=== PATIENT | male | born 1940 | race Caucasian/White ===

== ENCOUNTER 2018-12-19 11:20 | Emergency (ER) | payer MEDICARE, OTHER ==
[2018-12-19 11:48] VITALS: BP 130/93
--- NOTE | 2018-12-19 12:06 | EDM.PDOC ---
ED HPI GENERAL MEDICAL PROBLEM - General Chief Complaint: Cardiovascular Problem Stated Complaint: BOTH FEET ARE SWOLLEN Time Seen by Provider: 12/19/18 12:00 Source of Information: Reports: Patient History Limitations: Reports: No Limitations - History of Present Illness INITIAL COMMENTS - FREE TEXT/NARRATIVE: 78-year-old male presents to the ED mainly due to somewhat painful bilateral swollen lower extremities. He states over the last 2 months his legs have become increasingly swollen and remained so. They're not swollen up to the knees. He is wearing compression stockings as well. He does have some varicose veins but he's never had any varicose vein stripping procedures. Cigarettes but never very heavily. Denies cough sputum production. Denies orthopnea or any PND. Cough if he coughs is thick tenacious clear or white sputum. Has had previous left lung surgery for an empyema in 2001 . Diagnosed with prostate cancer in 2014 treated by cesium seed implants. This did not produce any diarrhea after placement. Last 2 weeks she's had prolific diarrhea 12-15 times per day particularly intestinal hurry if he eats. He states a lot of times it's not high-volume this is the fact that he has to go quickly to the bathroom. Patient denies being on any antibiotic some the last 6 weeks. He has had stools collected 4 separate stools and he brought him into the lab this morning for analysis ordered by Dr. Orozco. He does admit that he's been taking CBD oils to try and help with arthritic pain. States the diarrhea started shortly after starting the oils which is highly significant. He stopped them about 10 days ago. He did appreciate that he's had 6 stools this morning since awakening at 5: 00 with the last one being somewhat semi-formed or pasty which is the best it's been for a lengthy period of time. He has never noticed any blood in the stool. He still has his gallbladder in. Onset: Gradual Onset Date: 10/15/18 Duration: Week(s):, Constant, Getting Worse Location: Reports: Pelvis, Lower Extremity, Left, Lower Extremity, Right ( Bilateral lower extremity swelling for greater than 2 months.) Quality: Reports: Ache, Throbbing Severity: Moderate Improves with: Reports: Other (Elevating the legs helps somewhat.) Worsens with: Reports: Other (Dependent position makes them worse) Context: Denies: Activity, Exercise, Lifting, Sick Contact, Trauma, Other Associated Symptoms: Reports: Other (Chronic diarrhea with 12-15 bowel motions per day for the last 2 weeks or more.). 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) (He has Pepto-Bismol at home but hasn 't started it yet.) - Related Data Allergies Allergy/AdvReac Type Severity Reaction Status Date / Time No Known Allergies Allergy Verified 12/19/18 11:51 Home Meds: Home Meds Calcium Carbonate/Vitamin D3 [Calcium 600 + D Tablet] 1 tab PO DAILY 06/02/15 [ History] Cholecalciferol (Vitamin D3) [Vitamin D3] 800 mg PO BID 06/02/15 [History] Multivitamin [Multivitamins] 1 tab PO DAILY 06/02/15 [History] Tamsulosin [Flomax] 0.4 mg PO DAILY 10/30/15 [History] Antiox #11/OM3/DHA/EPA/Lut/Juan C [Eye Health Adult 50+ Softgel] 1 each PO DAILY [History] Aspirin [Ian Chewable] 81 mg PO DAILY 12/19/18 [History] Dicyclomine [Bentyl] 20 mg PO Q6H PRN #20 tablet 12/19/18 [Rx] Furosemide [Lasix] 40 mg PO DAILY #30 tablet 12/19/18 [Rx] Metoprolol Tartrate [Lopressor] 50 mg PO DAILY 12/19/18 [History] Potassium Chloride 20 meq PO DAILY #30 tablet.er 12/19/18 [Rx] Past Medical History Other Cardiovascular History: Tachycardia Gastrointestinal History: Reports: Chronic Diarrhea (Chronic diarrhea for over 2 weeks. 12-15 bowel movements per day usually low volume. No blood per rectum. Occasional lower abdominal cramping pain.) Genitourinary History: Reports: BPH, Prostate Disorder, Other (See Below) ( Diagnosed with prostate cancer in 2014 and he was treated with cesium seed implants.) Musculoskeletal History: Reports: Osteoarthritis (Knees hips back and neck.) - Past Surgical History Male Surgical History: Reports: Other (See Below) Social & Family History - Tobacco Use Smoking Status *Q: Former Smoker (20 pack year history.) Tobacco Use Within Last Twelve Months: Cigarettes - Living Situation & Occupation Living situation: Reports: Occupation: Retired ED ROS GENERAL - Review of Systems Review Of Systems: See Below Constitutional: Denies: Fever, Chills, Malaise, Weakness, Fatigue, Weight Loss HEENT: Reports: Glasses, Hearing Loss (Mild) Respiratory: Reports: Other (Previous history of empyema left lower lung field that had to be drained with 3 chest tubes in [place]. This happened in 2001). Denies: Shortness of Breath, Wheezing, Pleuritic Chest Pain, Cough Cardiovascular: Reports: Blood Pressure Problem, Edema, Other (No orthopnea or PND). Denies: Chest Pain, Claudication, Dyspnea on Exertion (Severe edema both lower extremities up to the knees bilaterally gradually worsening over the last 2 months or more.), Lightheadedness, Orthopnea (Mild hypertension) Endocrine: Reports: No Symptoms GI/Abdominal: Reports: Diarrhea (Chronic diarrhea usually small quantities stool loss without blood) : Reports: Frequency, Urgency, Other (Nocturia between 2 and 6 times nightly.) Musculoskeletal: Reports: Joint Pain (Knees hips back and neck and shoulders at times) Skin: Reports: No Symptoms Neurological: Reports: No Symptoms Psychiatric: Reports: No Symptoms Hematologic/Lymphatic: Reports: No Symptoms Immunologic: Reports: No Symptoms ED EXAM, GENERAL - Physical Exam Exam: See Below Exam Limited By: No Limitations General Appearance: Alert, WD/WN, No Apparent Distress, Other (Vital signs show respiratory rate of 18 pulse oximetry is 96% on room air he is afebrile.) Eye Exam: Bilateral Eye: Normal Inspection Throat/Mouth: Normal Inspection, Normal Lips, Normal Oropharynx Head: Atraumatic, Normocephalic Neck: Normal Inspection, Supple, Non-Tender, Full Range of Motion, Other. No: Carotid Bruit, Lymphadenopathy (L), Lymphadenopathy (R) Respiratory/Chest: No Respiratory Distress (No JVD), Lungs Clear, Normal Breath Sounds, No Accessory Muscle Use, Other (Has evidence of 3 previous thoracotomy drainage tubes in his left anterior lateral chest wall.) Cardiovascular: Regular Rate, Rhythm, No Gallop, No Murmur, No Rub, Other (4+ pitting edema both lower extremities). No: Normal Peripheral Pulses, No Edema Peripheral Pulses: 0: Posterior Tibial (L), Posterior Tibial (R), Dorsalis Pedis (L), Dorsalis Pedis (R) GI/Abdominal: Soft, Non-Tender, No Organomegaly, Pelvis Stable, Abnormal Bowel Sounds (Male) Exam: Other (Denies any swelling of his scrotum or penis) Back Exam: Normal Inspection, Full Range of Motion. No: CVA Tenderness (L), CVA Tenderness (R) Extremities: Pedal Edema (3-4+ pitting edema both lower extremity is up to the knees little worse on the left side as compared to the right.), Other Neurological: Alert (He is wearing compression stockings as well.), Oriented, CN II-XII Intact, Normal Cognition Psychiatric: Normal Affect, Normal Mood Skin Exam: Warm, Dry, Intact, Normal Color Course - Vital Signs Last Recorded V/S: Last Vital Signs Temp 36.9 C 12/19/18 11:42 Pulse 78 12/19/18 11:42 Resp 18 12/19/18 11:42 BP 130/93 H 12/19/18 11:42 Pulse Ox 96 12/19/18 11:42 - Orders/Labs/Meds Orders: Active Orders 24 hr Category Date Time Status H.PYLORI ANTIGEN, STOOL [OP] Stat Lab 12/19/18 15:17 Ordered Labs: Laboratory Tests 12/19/18 12/19/18 12/19/18 Range/Units 12:23 12:47 12:47 WBC 6.11 (4.23-9.07) K/mm3 RBC 3.49 L (4.63-6.08) M/mm3 Hgb 12.3 L (13.7-17.5) gm/L Hct 38.4 L (40.1-51.0) % MCV 110.0 H (79.0-92.2) fl MCH 35.2 H (25.7-32.2) pg MCHC 32.0 L (32.2-35.5) g/dl RDW Std Deviation 54.2 H (35.1-43.9) fL Plt Count 125 L (163-337) K/mm3 MPV 9.8 (9.4-12.3) fl Neutrophils % (Manual) 76 H (40-60) % Band Neutrophils % 0 (0-10) % Lymphocytes % (Manual) 14 L (20-40) % Atypical Lymphs % 0 % Monocytes % (Manual) 9 (2-10) % Eosinophils % (Manual) 1 (0.8-7.0) % Basophils % (Manual) 0 L (0.2-1.2) Platelet Estimate Decreased Poikilocytosis 1+ slight Anisocytosis 1+ slight Macrocytosis 2+ moderate Tear Drop Cells 1+ slight RBC Morph Comment Abnormal ESR (0-15) mm/hr Sodium 142 (136-145) mEq/L Potassium 3.6 (3.5-5.1) mEq/L Chloride 104 (98-107) mEq/L Carbon Dioxide 29 (21-32) mEq/L Anion Gap 12.6 (5-15) BUN 9 (7-18) mg/dL Creatinine 1.0 (0.7-1.3) mg/dL Est Cr Clr Drug Dosing 63.80 mL/min Estimated GFR (MDRD) > 60 (>60) mL/min BUN/Creatinine Ratio 9.0 L (14-18) Glucose 104 (83-115) mg/dL Calcium 8.9 (8.5-10.1) mg/dL Magnesium 1.7 L (1.8-2.4) mg/dl Total Bilirubin 1.8 H (0.2-1.0) mg/dL AST 67 H (15-37) U/L ALT 44 (16-63) U/L Alkaline Phosphatase 108 (46-116) U/L NT-Pro-B Natriuret Pep (0-450) pg/mL Total Protein 7.1 (6.4-8.2) g/dl Albumin 3.0 L (3.4-5.0) g/dl Globulin 4.1 gm/dL Albumin/Globulin Ratio 0.7 L (1-2) Urine Color Yellow (Yellow) Urine Appearance Clear (Clear) Urine pH 7.0 (5.0-8.0) Ur Specific [place] 1.020 (1.005-1.030) Urine Protein 1+ H (Negative) Urine Glucose (UA) Negative (Negative) Urine Ketones Negative (Negative) Urine Occult Blood Negative (Negative) Urine Nitrite Positive H (Negative) Urine Bilirubin 1+ H (Negative) Urine Urobilinogen 2.0 H (0.2-1.0) Ur Leukocyte Esterase Negative (Negative) Urine RBC Not seen (0-5) /hpf Urine WBC 0-5 (0-5) /hpf Ur Epithelial Cells 0-5 (0-5) /hpf Urine Bacteria Moderate H (FEW) /hpf Urine Mucus Moderate H (FEW) /hpf 12/19/18 12/19/18 Range/Units 12:47 12:47 WBC (4.23-9.07) K/mm3 RBC (4.63-6.08) M/mm3 Hgb (13.7-17.5) gm/L Hct (40.1-51.0) % MCV (79.0-92.2) fl MCH (25.7-32.2) pg MCHC (32.2-35.5) g/dl RDW Std Deviation (35.1-43.9) fL Plt Count (163-337) K/mm3 MPV (9.4-12.3) fl Neutrophils % (Manual) (40-60) % Band Neutrophils % (0-10) % Lymphocytes % (Manual) (20-40) % Atypical Lymphs % % Monocytes % (Manual) (2-10) % Eosinophils % (Manual) (0.8-7.0) % Basophils % (Manual) (0.2-1.2) Platelet Estimate Poikilocytosis Anisocytosis Macrocytosis Tear Drop Cells RBC Morph Comment ESR 23 H (0-15) mm/hr Sodium (136-145) mEq/L Potassium (3.5-5.1) mEq/L Chloride (98-107) mEq/L Carbon Dioxide (21-32) mEq/L Anion Gap (5-15) BUN (7-18) mg/dL Creatinine (0.7-1.3) mg/dL Est Cr Clr Drug Dosing mL/min Estimated GFR (MDRD) (>60) mL/min BUN/Creatinine Ratio (14-18) Glucose (83-115) mg/dL Calcium (8.5-10.1) mg/dL Magnesium (1.8-2.4) mg/dl Total Bilirubin (0.2-1.0) mg/dL AST (15-37) U/L ALT (16-63) U/L Alkaline Phosphatase (46-116) U/L NT-Pro-B Natriuret Pep 260 (0-450) pg/mL Total Protein (6.4-8.2) g/dl Albumin (3.4-5.0) g/dl Globulin gm/dL Albumin/Globulin Ratio (1-2) Urine Color (Yellow) Urine Appearance (Clear) Urine pH (5.0-8.0) Ur Specific [place] (1.005-1.030) Urine Protein (Negative) Urine Glucose (UA) (Negative) Urine Ketones (Negative) Urine Occult Blood (Negative) Urine Nitrite (Negative) Urine Bilirubin (Negative) Urine Urobilinogen (0.2-1.0) Ur Leukocyte Esterase (Negative) Urine RBC (0-5) /hpf Urine WBC (0-5) /hpf Ur Epithelial Cells (0-5) /hpf Urine Bacteria (FEW) /hpf Urine Mucus (FEW) /hpf - Radiology Interpretation Free Text/Narrative:: 78-year-old male attends the ED with chief complaint of increasing gross edema in his lower extremities bilaterally. Probably been going on for over 2 months. This is complicated by the fact that he said quite severe diarrhea with anywhere between 12 and 15 bowel moves a day for the last 3 weeks. This seemed to start after he started CBD or oils an attempt to help reduce inflammation. He essentially stopped these about [address] Orozco and stools 4 have been collected for culture and sensitivity and I believe open parasites which were trended to the lab this morning. He states for the first time today the stool started to look a little pasty or semi-formed. No blood has been passed per rectum. He had cesium implants for prostate cancer placed in 2014 and it's unlikely to be related to radiation-induced proctitis. He appreciates intestinal hurry if he eats he is usually on the toilet within 10 minutes. Therefore the question is whether or not he has protein is very low by hypoalbuminemia contributing to his dependent edema. Lab work will be performed to make sure that he is not in heart failure, liver failure, renal failure or simply has significant venous insufficiency. - Re-Assessments/Exams Free Text/Narrative Re-Assessment/Exam: 12/19/18 13:45 Part of the labs are back. Total white count is 6.11. Differential is pending. Hemoglobin is 12.3 with hematocrit of 38.4. MCV is elevated at 110.0. Sodium is 142. Potassium is 3.6. Chloride 104 the bicarbonate 29. Anion gap is 12.6. BUN is 9 with a creatinine of 1.0. GFR is greater than 60. Glucose 104 with a calcium of 8.9 magnesium is slightly low at 1.7 total bilirubin is elevated at 1.8. AST is 67 ALT is 44. Alk phosphatase is normal at 108. BNP minimally elevated at 260. Total protein is 7.1 with an albumin fraction of 3.0. The urinalysis shows 1+ proteinuria is positive for nitrates 1+ bilirubin and 2+ urobilinogen. Moderate bacteria .No pus cells 12/19/18 15:21 her history suggests that is had chronic dependent edema. Probably 3 months which is getting worse. May be worsened because of his low albumin fraction secondary to diarrhea. Return in H. pylori on his stool as it needs to be ruled out as well as a potential cause of his diarrhea. I phoned to the lab it but now the stools have been evaluated yet to see if there is any pus cells. White cells of been ordered on the stool and he never produced any stool while here. He will be placed on Lasix 40 mg once every morning to help reduce his fluid retention in his lower extremities. He is to step on the scale every day and weight on his weights. Placed on Slow-K 20 mg once daily because his potassium is 3.6. This will have to be kept an eye on as it may come up as his diarrhea abates. Placed him on Bentyl 20 mg first thing in the morning and before bed to try and help alleviate some of his diarrhea. I suspect since he stopped the CBD oils his diarrhea will likely improve at any rate. I will get him started on fluoroscopy*twice daily probiotics. He has plans to follow-up with Dr. Boggs next week when he starts at the hospital here. Departure - Departure Time of Disposition: 14:16 Disposition: Home, Self-Care 01 Condition: Fair Clinical Impression: Dependent edema, Venous insufficiency of both lower extremities, Chronic diarrhea Prescriptions: Dicyclomine [Bentyl] 20 mg PO Q6H PRN #20 tablet PRN Reason: Abdominal cramps/diarrhea Furosemide [Lasix] 40 mg PO DAILY #30 tablet Potassium Chloride 20 meq PO DAILY #30 tablet.er Instructions: Chronic Diarrhea, Edema, [id number] Referrals: Bobby Esquivel MD [Primary Care Provider] - Forms: ED Department Discharge Additional Instructions: Evaluation the emergency room today in regards to chronic swelling of both lower extremities which we called venous insufficiency. Lab tests revealed no signs of significant congestive heart failure. No signs of liver failure and the kidneys are working well as well. Your serum protein is a little low at 3.0 which helps hold fluid within the blood vessels and its low because of the chronic diarrhea that you've been experiencing. My suggestion is to take water pill Lasix 40 mg once every morning at least for the next 10-14 days and if the swelling goes down dramatically we may be a little cut the tablet in half and take a half a tablet daily. Continue to wear compression stockings on during the day and off at night. 6 secondly you do need to get to the bottom of your diarrhea. Hopefully stopping the CBD oils will help form of the stools in the near future. I suggest starting probiotic twice daily such as Florastar which can be purchased at her skilled pharmacy. I would use these until your stools are formed back up to normal. May use Bentyl 20 mg first thing in the morning and one before bed until stools are formed back up to normal. Need to take a potassium supplement called Slow-K one tablet once daily every morning as the water pill makes the kidneys waste potassium and her potassium is already low- normal at 3.6. Normal is about 3.5. You might be low as well because of the chronic diarrhea. Dr. Medley in the next 10-12 days time. - My Orders Last 24 Hours: My Active Orders 12/19/18 15:17 H.PYLORI ANTIGEN, STOOL [OP] Stat - Assessment/Plan Last 24 Hours: My Active Orders 12/19/18 15:17 H.PYLORI ANTIGEN, STOOL [OP] Stat
== END 2018-12-19 14:43 | disposition home or self-care (01) ==
LOC: JD.ED 11:20
DX: I87.2 Venous insufficiency (chronic) (peripheral) (principal); K52.9 Noninfective gastroenteritis and colitis, unspecified; B96.81 Helicobacter pylori [H. pylori] as the cause of diseases classified elsewhere; M19.90 Unspecified osteoarthritis, unspecified site; Z87.891 Personal history of nicotine dependence; Z79.899 Other long term (current) drug therapy; Z79.82 Long term (current) use of aspirin
CPT/HCPCS: 36415; 80053; 81001; 83735; 83880; 85007; 85027; 85652; 87338; 99284

== ENCOUNTER 2019-03-13 05:59 | Inpatient (IN) | payer MEDICARE, OTHER ==
[~2019-03-13 05:59] MED LIST: Lactated Ringers 1,000 ML IV SCH; Lidocaine 1%/Sod Bicarbonate in NS 8.4% 1 ML Syringe IDERM PRN; Sodium Chloride 0.9% 10 ML Syringe FLUSH PRN
[2019-03-13] MEDS ORDERED: Midazolam 1 MG/ML 2 ML SDV ONE ×6 (06:48→08:39)
[2019-03-13] MEDS ORDERED: fentaNYL 100 MCG/2 ML SDV ONE (06:48)
[2019-03-13] MEDS ORDERED: Propofol 200 MG/20 ML SDV ONE (06:48)
[2019-03-13] MEDS ORDERED: ceFAZolin 1 GM Vial ONE ×2 (06:51)
--- NOTE | 2019-03-13 07:03 | PCM.PREANE ---
Preanesthetic Assessment - Anesthesia/Transfusion/Family Hx Anesthesia History: Prior Anesthesia Without Reaction Family History of Anesthesia Reaction: No Transfusion History: No Prior Transfusion(s) Intubation History: Unknown - Review of Systems General: No Symptoms Pulmonary: No Symptoms, Shortness of Breath Cardiovascular: No Symptoms Gastrointestinal: No Symptoms Neurological: Syncope - Physical Assessment NPO Status Date: 03/13/19 NPO Status Time: 18:30 O2 Sat by Pulse Oximetry: 95 Respiratory Rate: 16 Vital Signs: Last Vital Signs Temp 36.6 C 03/13/19 06:05 Pulse 64 03/13/19 06:05 Resp 16 03/13/19 06:05 BP 117/74 03/13/19 06:05 Pulse Ox 95 03/13/19 06:05 Height: 1.78 m Weight: 103.419 kg ASA Class: 3 Mental Status: Alert & Oriented x3 Airway Class: Mallampati = 3 Dentition: Reports: Dentures ROM/Head Extension: Limited/Partial Lungs: Clear to Auscultation, Normal Respiratory Effort Cardiovascular: Regular Rate, Regular Rhythm - Lab Values: Laboratory Last Values MRSA (PCR) Negative 02/26/19 15:30 - Allergies Allergies/Adverse Reactions: Allergies Allergy/AdvReac Type Severity Reaction Status Date / Time pravastatin Allergy Joint Pain Verified 03/12/19 15:16 ropinirole [From Requip] Allergy Joint Pain Verified 03/12/19 15:16 - Anesthesia Plan Beta Yessica: Metoprolol - Acknowledgements Anesthesia Type Planned: Spinal Pt an Appropriate Candidate for the Planned Anesthesia: Yes Alternatives and Risks of Anesthesia Discussed w Pt/Guardian: Yes Pt/Guardian Understands and Agrees with Anesthesia Plan: Yes PreAnesthesia Questionnaire HEENT History: Reports: Impaired Vision Cardiovascular History: Reports: Aneurysm, CAD, Heart Failure Other Cardiovascular History: Tachycardia Respiratory History: Reports: COPD, SOB Gastrointestinal History: Reports: Chronic Diarrhea, Colon Polyp, GERD, Other ( See Below) Other Gastrointestinal History: abnormal liver function, anorexia, constipation , abdominal pain Genitourinary History: Reports: BPH, Prostate Disorder CODING ASSISTANT History: Reports: None Musculoskeletal History: Reports: Arthritis, Osteoarthritis Other Musculoskeletal History: muscle cramps, knee pain Neurological History: Reports: Headaches, Chronic Psychiatric History: Reports: Addiction, Anxiety Endocrine/Metabolic History: Reports: None Hematologic History: Reports: Folic Acid Immunologic History: Reports: None Oncologic (Cancer) History: Reports: Prostate Dermatologic History: Reports: Other (See Below) Other Dermatologic History: losing pigment in hands and lower arms - Past Surgical History Head Surgeries/Procedures: Reports: None HEENT Surgical History: Reports: Cataract Surgery Cardiovascular Surgical History: Reports: Cardiac Ablation Respiratory Surgical History: Reports: Other (See Below) Other Respiratory Surgeries/Procedures: emphyema GI Surgical History: Reports: Colonoscopy Female Surgical History: Reports: None Male Surgical History: Reports: Other (See Below) Other Male Surgeries/Procedures: prostate seeds Endocrine Surgical History: Reports: None Neurological Surgical History: Reports: None Musculoskeletal Surgical History: Reports: Hip Replacement, Joint Replacement, Other (See Below) Other Musculoskeletal Surgeries/Procedures:: L hip Oncologic Surgical History: Reports: None - SUBSTANCE USE Smoking Status *Q: Former Smoker Days Per Week of Alcohol Use: 7 Number of Drinks Per Day: 3 Total Drinks Per Week: 21 Date of Last Drink: 03/09/19 Recreational Drug Use History: No - HOME MEDS Home Medications: Home Meds Calcium Carbonate/Vitamin D3 [Calcium 600 + D Tablet] 1 tab PO BID 06/02/15 [ History] Multivitamin [Multivitamins] 1 tab PO DAILY 06/02/15 [History] Tamsulosin [Flomax] 0.4 mg PO BID 10/30/15 [History] Antiox #11/OM3/DHA/EPA/Lut/Juan C [Eye Health Adult 50+ Softgel] 1 each PO DAILY [History] Aspirin [Ian Chewable] 81 mg PO DAILY 12/19/18 [History] Furosemide [Lasix] 40 mg PO DAILY #30 tablet 12/19/18 [Rx] Dicyclomine [Bentyl] 20 mg PO Q48H PRN 03/12/19 [History] Folic Acid 1 mg PO DAILY 03/12/19 [History] Metoprolol Succinate 25 mg PO DAILY 03/12/19 [History] - CURRENT (IN HOUSE) MEDS Current Meds: Current Medications Lactated Ringer's (Ringers, Lactated) 1,000 mls @ 125 mls/hr IV ASDIRECTED [facility] Last Admin: 03/13/19 06:46 Dose: 125 mls/hr Lidocaine/Sodium Bicarbonate (Buffered Lidocaine 1% In Ns 8.4%) 0.25 ml IDERM ONETIME PRN PRN Reason: Prior to IV Start Last Admin: 03/13/19 06:45 Dose: 0.25 ml Sodium Chloride (Saline Flush) 10 ml FLUSH ASDIRECTED PRN PRN Reason: Keep Vein Open Discontinued Medications Bupivacaine HCl (Marcaine 0.25%) Confirm Administered Dose 30 ml .ROUTE .STK- MED ONE Stop: 03/13/19 06:36 Cefazolin Sodium (Ancef) Confirm Administered Dose 2 gm .ROUTE .STK-MED ONE Stop: 03/13/19 06:36 Cefazolin Sodium (Ancef) Confirm Administered Dose 1 gm .ROUTE .STK-MED ONE Stop: 03/13/19 06:52 Cefazolin Sodium (Ancef) Confirm Administered Dose 1 gm .ROUTE .STK-MED ONE Stop: 03/13/19 06:52 Fentanyl (Sublimaze) Confirm Administered Dose 100 mcg .ROUTE .STK-MED ONE Stop: 03/13/19 06:49 Iodine (Iodine 2% Mild Tincture) Confirm Administered Dose 30 ml .ROUTE .STK- MED ONE Stop: 03/13/19 06:36 Midazolam HCl (Versed 1 Mg/Ml) Confirm Administered Dose 2 mg .ROUTE .STK-MED ONE Stop: 03/13/19 06:49 Propofol (Diprivan 20 Ml) Confirm Administered Dose 200 mg .ROUTE .STK-MED ONE Stop: 03/13/19 06:49 Tranexamic Acid (Cyklokapron) Confirm Administered Dose 1,000 mg .ROUTE .STK- MED ONE Stop: 03/13/19 06:36 Vancomycin HCl (Vancomycin) Confirm Administered Dose 1 gm .ROUTE .STK-MED ONE Stop: 03/13/19 06:36
[2019-03-13] MEDS ORDERED: Ondansetron 4 MG/2 ML SDV IVPUSH PRN (07:16)
[2019-03-13] MEDS ORDERED: Naloxone 0.4 MG/ML SDV IVPUSH PRN (07:16)
[2019-03-13] MEDS ORDERED: Sennosides 8.6 MG Tab PO PRN (07:16)
[2019-03-13] MEDS ORDERED: Morphine 2 MG/ML Syringe IVPUSH PRN (07:16)
[2019-03-13] MEDS ORDERED: Bisacodyl 5 MG Tab PO PRN (07:16)
[2019-03-13] MEDS ORDERED: Bupivacaine 0.75% 30 ML SDV ONE (07:18)
[2019-03-13] MEDS ORDERED: Ropivacaine 0.5% 5 MG/ML 30 ML SDV ONE (07:45)
[2019-03-13] MEDS ORDERED: EPINEPHrine 1 MG/ML SDV ONE (07:45)
[2019-03-13] MEDS ORDERED: Lactated Ringers 1,000 ML ONE (07:53)
[2019-03-13] MEDS: Iodine/Sodium Iodide 2% Tincture 30 ML Bottle ONE ×2 (08:08→08:26)
[2019-03-13] MEDS: ceFAZolin 1 GM Vial ONE ×2 (08:08→08:28)
[2019-03-13] MEDS: Bupivacaine 0.25% 30 ML SDV ONE ×2 (08:09→08:30)
[2019-03-13] MEDS: Morphine 8 MG, EPINEPHrine 0.3 MG, Cefuroxime 750 MG, Sodium Chloride 0.9% 27.9 ML ONE ×8 (08:09→08:30)
[2019-03-13] MEDS: Vancomycin 1 GM SDV ONE ×2 (08:10→08:35)
--- NOTE | 2019-03-13 09:20 | PCM.POSTAN ---
POST ANESTHESIA ASSESSMENT - MENTAL STATUS Mental Status: Alert - RESPIRATORY Respiratory Status: Respiratory Rate WNL, Airway Patent, O2 Saturation Stable, Supplemental Oxygen - CARDIOVASCULAR CV Status: Pulse Rate WNL, Blood Pressure Stable - GASTROINTESTINAL GI Status: No Symptoms - POST OP HYDRATION Hydration Status: Adequate & Stable
--- NOTE | 2019-03-13 09:45 | PCM.OPNOTE ---
- General Post-Op/Procedure Note Date of Surgery/Procedure: 03/13/19 Operative Procedure(s): right total knee arthroplasty Pre Op Diagnosis: right knee osteoarthrosis Post-Op Diagnosis: Same Anesthesia Technique: Local, MAC, Spinal Primary Surgeon: Chance Guerrero Anesthesia Provider: Tera Preciado Military Administrative Technician: Shahida Mcnulty Military Administrative Technician: Dary Wayne in mLs: 5 Complications: None Condition: Good Free Text/Narrative:: size 7 femur size 6 tibia 9mm 35x10
--- NOTE | 2019-03-13 09:59 | CR ---
Right knee: AP and lateral views of the right knee were obtained. Comparison: No prior knee exam. Knee prosthesis is seen. Components are aligned. Soft tissue air is noted from the surgical procedure. Vascular calcification is seen. No acute fracture or other abnormality is seen. Impression: 1. Satisfactory radiographic appearance of recently placed right knee prosthesis. Diagnostic code #2
--- NOTE | 2019-03-13 10:02 | PCM.SN ---
- Free Text/Narrative Note: Right selective femoral nerve block at the adductor canal for post-procedure pain control under US guidance requested by Dr. Guerrero. Time Out: 942 Start: 942 End: 950 Chart reviewed. Consent signed. Questions answered. Appropriate monitors applied. Time out performed. Right mid-shaft femur identified with ultrasound, scanning medially of femur, the femoral artery in the adductor canal visualized , and the femoral nerve located laterally to the artery. The skin was prepped lateral to the ultrasound probe with chlorahexadine times two. The 21ga 4 insulated block needle was inserted under direct ultrasound guidance into the adductor canal. 21mL of 0.5% ropivacaine with 1:200,000 epinephrine was injected circumferentially around the nerve with intermittent negative aspiration noted. Patient tolerated the procedure well. Sterile technique noted along with sterile gloves, mask, and sterile probe cover. See picture on progress note and vital signs on nurses notes. Block completed in PACU. Raisa Olmedo CRNA
--- NOTE | 2019-03-13 10:09 | OR ---
DATE OF OPERATION: 03/13/2019 SURGEON: Chance Guerrero MD OPERATION PERFORMED: Right total knee arthroplasty. PREOPERATIVE DIAGNOSIS: Right knee osteoarthrosis. POSTOPERATIVE DIAGNOSIS: Right knee osteoarthrosis. ANESTHESIA: Local MAC with spinal. ANESTHESIA PROVIDER: Tera Preciado CRNA. ASSISTANTS: Shahida Mcnulty PA-C and Dary Wayne LPN. ESTIMATED BLOOD LOSS: 5 mL. COMPLICATIONS: None. CONDITION: Stable. IMPLANTS: 1. [place] size 7 PS cemented femur. 2. [place] size 6 cemented [place] tibial baseplate. 3. [place] size 6, 9 mm PS X3 polyethylene. 4. [place] size 35 x 10 mm cemented asymmetric patella. DESCRIPTION OF PROCEDURE: The patient was identified in the preop holding area. Proper site was marked and identified by the surgeon. The patient was taken back to the operating theater. After adequate anesthesia, the patient's right lower extremity had a nonsterile tourniquet applied and it was sterilely prepped and draped in the usual sterile fashion. OR time-out was performed. The patient received 2 g IV Ancef. At this time, the right lower extremity was exsanguinated. Tourniquet was insufflated to 300 mmHg. Standard medial parapatellar incision was made. Medial parapatellar arthrotomy was created. Deep fibers of the MCL were raised and anterior fat pad was resected. At this time, attention was turned to the patella. Patella measured 24, it was resected to a 14 for 35 x 10 mm patella. Drill holes were then drilled and found to be in adequate position. The drill was then drilled in the distal femur and the intramedullary distal femoral cutting guide was then placed. 8 mm was resected off the distal femur and was found to be an adequate resection. Sizing guide was placed. It was found to be a size 7 PS cemented femur that was shown on the implant record at the beginning of this dictation. The drill holes were drilled for the epicondylar axis using [place] line and epicondyles as reference. At this time, the 4-in-1 cutting block was placed. An anterior posterior and anterior and posterior chamfer cuts were then completed. Boxcut was then completed at this time. Attention was turned to the tibia. The posterior medial lateral retractors were placed. The extramedullary tibial guide was placed. It was placed in the old footprint of the ACL. It was aligned with the center of the ankle and 0 degrees of slope, 9 mm was then resected off the unaffected side. There was found to be an acceptable reduction. At this time, posterior osteophytes were removed along with medial and lateral meniscus. A trial implant was placed with a correct sized tibia that was mentioned at the beginning of the dictation. A [place] size 6, 9 mm PS X3 polyethylene insert was then placed. The patient's knee was brought through range of motion. The patella was tracking centrally and was stable to varus and valgus stress. Alignment was found to be roughly at 0 degrees. The tibia was stamped and drilled in proper rotation. Cement was mixed. The universal tibial base plate was impacted in place. Next, the [place] size 7 PS cemented femur impacted into place and the [place] size 6, 9 mm PS X3 polyethylene insert was placed. The patient's knee was brought into full extension. The patella was then cemented in place at this time. One liter dilute Betadine solution was irrigated through the knee along with 3 L of pulse lavage irrigation with Ancef. Periarticular injection was then completed. The patient's knee was brought through a range of motion. Once the cement had time to set up and it was found to be stable to varus valgus stress, the patella was tracking centrally with full range of motion. At this time, a #2 barbed suture was used for closure of the medial parapatellar arthrotomy. Topical tranexamic acid was placed. 2-0 Vicryl was used subcutaneously, Prineo was used for the skin. The patient tolerated the procedure well and was sent to the PACU in stable condition. MMMILANA /[id number] SUZANNE
[2019-03-13] MEDS ORDERED: diphenhydrAMINE 25 MG Cap PO ONE (12:03)
[2019-03-13] MEDS: Docusate Sodium 100 MG Cap PO SCH ×2 (12:19→20:15)
[2019-03-13] MEDS: Acetaminophen/oxyCODONE 325-5 MG Tab PO PRN ×2 (12:23→16:42)
[2019-03-13] MEDS: Cyclobenzaprine 10 MG Tab PO PRN (13:24)
--- NOTE | 2019-03-13 13:49 | PCM.CONS ---
H&P History of Present Illness - General Date of Service: 03/13/19 Admit Problem/Dx: Admission Diagnosis/Problem Admission Diagnosis/Problem Osteoarthritis of knee - History of Present Illness Initial Comments - Free Text/Narative: 78-year-old male postop day 0 for right total knee arthroplasty. 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 Patient did well post op and is resting comfortably in bed without any complaints. 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 Patient rarely goes without drinking daily. His last drink was 2 days ago because he wanted to cut back before his surgery and he only had 1 ounce of mckenna. - Related Data Allergies/Adverse Reactions: Allergies Allergy/AdvReac Type Severity Reaction Status Date / Time pravastatin Allergy Joint Pain Verified 03/12/19 15:16 ropinirole [From Requip] Allergy Joint Pain Verified 03/12/19 15:16 Home Medications: Home Meds Calcium Carbonate/Vitamin D3 [Calcium 600 + D Tablet] 1 tab PO BID 06/02/15 [ History] Multivitamin [Multivitamins] 1 tab PO DAILY 06/02/15 [History] Tamsulosin [Flomax] 0.4 mg PO BID 10/30/15 [History] Antiox #11/OM3/DHA/EPA/Lut/Juan C [Eye Health Adult 50+ Softgel] 1 each PO DAILY [History] Aspirin [Ian Chewable] 81 mg PO DAILY 12/19/18 [History] Furosemide [Lasix] 40 mg PO DAILY #30 tablet 12/19/18 [Rx] Dicyclomine [Bentyl] 20 mg PO Q48H PRN 03/12/19 [History] Folic Acid 1 mg PO DAILY 03/12/19 [History] Metoprolol Succinate 25 mg PO DAILY 03/12/19 [History] Past Medical History HEENT History: Reports: Impaired Vision Cardiovascular History: Reports: Aneurysm, CAD, Heart Failure Other Cardiovascular History: Tachycardia Respiratory History: Reports: COPD, SOB Gastrointestinal History: Reports: Chronic Diarrhea, Colon Polyp, GERD, Other ( See Below) Other Gastrointestinal History: abnormal liver function, anorexia, constipation , abdominal pain Genitourinary History: Reports: BPH, Prostate Disorder SPIRITUAL CARE COORDINATOR History: Reports: None Musculoskeletal History: Reports: Arthritis, Osteoarthritis Other Musculoskeletal History: muscle cramps, knee pain Neurological History: Reports: Headaches, Chronic Psychiatric History: Reports: Addiction, Anxiety Endocrine/Metabolic History: Reports: None Hematologic History: Reports: Folic Acid Immunologic History: Reports: None Oncologic (Cancer) History: Reports: Prostate Dermatologic History: Reports: Other (See Below) Other Dermatologic History: losing pigment in hands and lower arms - Past Surgical History Head Surgeries/Procedures: Reports: None HEENT Surgical History: Reports: Cataract Surgery Cardiovascular Surgical History: Reports: Cardiac Ablation Respiratory Surgical History: Reports: Other (See Below) Other Respiratory Surgeries/Procedures: emphyema GI Surgical History: Reports: Colonoscopy Female Surgical History: Reports: None Male Surgical History: Reports: Other (See Below) Other Male Surgeries/Procedures: prostate seeds Endocrine Surgical History: Reports: None Neurological Surgical History: Reports: None Musculoskeletal Surgical History: Reports: Hip Replacement, Joint Replacement, Other (See Below) Other Musculoskeletal Surgeries/Procedures:: L hip Oncologic Surgical History: Reports: None Social & Family History - Family History Family Medical History: Noncontributory - Tobacco Use Smoking Status *Q: Former Smoker Used Tobacco, but Quit: Yes Month/Year Tobacco Last Used: 1999 Tobacco Use Comment: Smoked for 58 year 1/2 pack per day - Caffeine Use Caffeine Use: Reports: Coffee, Soda - Alcohol Use Days Per Week of Alcohol Use: 7 Number of Drinks Per Day: 3 Total Drinks Per Week: 21 Date of Last Drink: 03/09/19 - Recreational Drug Use Recreational Drug Use: No Drug Use in Last 12 Months: No - Living Situation & Occupation Living situation: Reports: Occupation: Retired H&P Review of Systems - Review of Systems: Review Of Systems: ROS reveals no pertinent complaints other than HPI. Exam - Exam Exam: See Below - Vital Signs Vital Signs: Last Vital Signs Temp 97.7 F 03/13/19 10:35 Pulse 57 L 03/13/19 12:02 Resp 14 03/13/19 10:40 BP 106/65 03/13/19 12:02 Pulse Ox 98 06/26/19 12:07 Weight: 228 lb - Exam General: Alert, Oriented HEENT: Conjunctiva Clear, Mucosa Moist & [place] Neck: Supple, Trachea Midline Lungs: Clear to Auscultation, Normal Respiratory Effort Cardiovascular: Regular Rate, Regular Rhythm GI/Abdominal Exam: Normal Bowel Sounds, Soft, Non-Tender, No Organomegaly, No Distention Skin: Warm, Dry, Intact Neuro Extensive - Mental Status: Alert, Oriented x3, Normal Mood/Affect, Normal Cognition Neuro Extensive - Motor, Sensory, Reflexes: CN II-XII Intact - Patient Data Lab Results Last 24 hrs: Laboratory Results - last 24 hr 03/13/19 Range/Units 06:30 Ethyl Alcohol 0.00 (0.00) gm% Consult PN Assessment/Plan POD#: 0 Procedures: Procedures AIRWAY INHALATION TREATMENT (07/17/15) ASSAY OF BLOOD/URIC ACID (01/14/19) ASSAY OF DIGOXIN TOTAL (07/17/15) ASSAY OF MAGNESIUM (01/14/19) ASSAY OF NATRIURETIC PEPTIDE (01/14/19) ASSAY OF TROPONIN QUANT (07/17/15) ASSAY THYROID STIM HORMONE (12/17/18) BL SMEAR W/DIFF WBC COUNT (01/14/19) BLOOD TYPING SEROLOGIC ABO (10/06/15) BLOOD TYPING SEROLOGIC RH(D) (10/06/15) C DIFF AMPLIFIED PROBE (12/18/18) C-REACTIVE PROTEIN (01/14/19) CARDIOVASCULAR STRESS TEST (03/02/18) CHEST X-RAY 1 VIEW FRONTAL (07/17/15) CHEST X-RAY 2VW FRONTAL&LATL (10/06/15) COMPLETE CBC AUTOMATED (01/14/19) COMPLETE CBC W/AUTO DIFF WBC (12/17/18) COMPREHEN METABOLIC PANEL (01/14/19) CREATINE MB FRACTION (07/17/15) CRYPTOSPORIDIUM AG IA (12/18/18) CT ANGIOGRAPHY CHEST (01/18/19) ELECTROCARDIOGRAM TRACING (07/17/15) EMERGENCY DEPT VISIT (12/19/18) EMERGENCY DEPT VISIT (10/30/15) EMERGENCY DEPT VISIT (10/30/15) EMERGENCY DEPT VISIT (07/17/15) EVALUATE PT USE OF INHALER (07/17/15) FIBRIN DEGRADATION QUANT (01/14/19) GAIT TRAINING THERAPY (07/17/15) GIARDIA AG IA (12/18/18) GLYCOSYLATED HEMOGLOBIN TEST (01/14/19) HT MUSCLE IMAGE SPECT MULT (03/02/18) INSERT TEMP BLADDER CATH (10/30/15) LEUKOCYTE ASSESSMENT FECAL (12/17/18) LIPID PANEL (01/14/19) METABOLIC PANEL TOTAL CA (10/06/15) OCCULT BLOOD FECES (12/17/18) OFFICE/OUTPATIENT VISIT NEW (12/17/18) OT EVALUATION (07/17/15) PROTHROMBIN TIME (10/06/15) PT EVALUATION (07/17/15) RBC ANTIBODY SCREEN (10/06/15) RBC SED RATE AUTOMATED (12/19/18) ROTAVIRUS AG IA (12/18/18) ROUTINE VENIPUNCTURE (01/14/19) SHIGA-LIKE TOXIN AG IA (12/19/18) STOOL CULTR AEROBIC BACT EA (12/19/18) THER/PROPH/DIAG INJ IV PUSH (07/17/15) THROMBOPLASTIN TIME PARTIAL (07/17/15) TTE W/DOPPLER COMPLETE (01/18/19) URINALYSIS AUTO W/SCOPE (12/19/18) US EXAM ABDOM COMPLETE (01/18/19) US URINE CAPACITY MEASURE (10/30/15) VITAMIN B-12 (01/14/19) X-RAY EXAM CHEST 2 VIEWS (01/14/19) X-RAY EXAM OF ABDOMEN (10/30/15) Problem List Initiated/Reviewed/Updated: Yes Plan: Assessment * 78-year-old male postop day 0 for right total knee arthroplasty. 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 Plan * Monitor patient for signs and symptoms of alcohol withdrawal overnight. * Follow kidney function. Preop estimated GFR 58 mL/m with creatinine of 1.2 mg/ dL and BUN of 16 mg/dL. * Preoperative white count was 9.59 * Preoperative hemoglobin 13.9 * Preoperative proBNP of 135 * VTE prophylaxis and pain medication per orthopedic team. * Thank you for allowing us to dissipate in the care of this nice gentleman. Requesting Provider: Dr. Cesar Date Consult Requested: 03/13/19 Patient History Reviewed: Yes Admission H&P Reviewed: Yes Notified Requestor: Yes Time Spent (in minutes): 60
[2019-03-13] MEDS: ceFAZolin 2 GM in Premix Bag 1 BAG IV SCH ×2 (15:47→22:00)
[2019-03-13] MEDS ORDERED: LORazepam 2 MG/ML SDV IVPUSH PRN (16:44)
[2019-03-13] MEDS: Tamsulosin 0.4 MG Cap.ER PO SCH (20:15)
[2019-03-13] MEDS: Calcium Carbonate/Vitamin D3 600 MG-200 Units Tab PO SCH (20:15)
[2019-03-14] MEDS: ceFAZolin 2 GM in Premix Bag 1 BAG IV SCH (06:17)
[2019-03-14] MEDS: Cyclobenzaprine 10 MG Tab PO PRN ×2 (06:18→16:09)
--- NOTE | 2019-03-14 06:45 | PCM.CONSN ---
- General Info Date of Service: 03/14/19 Admission Dx/Problem (Free Text): Admission Diagnosis/Problem Admission Diagnosis/Problem Osteoarthritis of knee Subjective Update: In to see Ed. Family is at bedside. He is doing relatively well from our perspective. PT/OT has been recommending SNF. Unfortunately it will likely be Monday until he is accepted. Otherwise his labs and vital signs continue to look good. No nursing or patient concerns. No signs of detoxing. Functional Status: Reports: Pain Controlled, Tolerating Diet, Ambulating, Urinating. Denies: New Symptoms - Review of Systems General: Reports: No Symptoms. Denies: Fever, Chills HEENT: Reports: No Symptoms. Denies: Headaches, Sore Throat Pulmonary: Reports: No Symptoms. Denies: Shortness of Breath, Pleuritic Chest Pain, Cough, Sputum, Wheezing Cardiovascular: Reports: No Symptoms. Denies: Chest Pain, Palpitations Gastrointestinal: Reports: No Symptoms. Denies: Abdominal Pain, Constipation, Diarrhea, Nausea, Vomiting Genitourinary: Reports: No Symptoms. Denies: Pain Musculoskeletal: Reports: Leg Pain Skin: Reports: No Symptoms. Denies: Cyanosis Neurological: Reports: No Symptoms Psychiatric: Reports: No Symptoms - Patient Data Vitals - Most Recent: Last Vital Signs Temp 98.2 F 03/14/19 04:23 Pulse 76 03/14/19 04:23 Resp 16 03/14/19 04:23 BP 113/71 03/14/19 04:23 Pulse Ox 92 L 03/14/19 04:23 Weight - Most Recent: 239 lb 1.6 oz I&O - Last 24 Hours: Intake & Output 03/13/19 03/13/19 03/14/19 14:59 22:59 06:59 Intake Total 825 810 750 Output Total 100 350 Balance 825 710 400 Lab Results Last 24 Hours: Laboratory Results - last 24 hr 03/13/19 03/14/19 03/14/19 Range/Units 06:30 04:50 04:50 WBC 8.77 (4.23-9.07) K/mm3 RBC 3.22 L (4.63-6.08) M/mm3 Hgb 10.4 L D (13.7-17.5) gm/L Hct 34.1 L (40.1-51.0) % MCV 105.9 H (79.0-92.2) fl MCH 32.3 H (25.7-32.2) pg MCHC 30.5 L (32.2-35.5) g/dl RDW Std Deviation 55.0 H (35.1-43.9) fL Plt Count 139 L (163-337) K/mm3 MPV 9.7 (9.4-12.3) fl Sodium 140 (136-145) mEq/L Potassium 4.0 (3.5-5.1) mEq/L Chloride 103 (98-107) mEq/L Carbon Dioxide 28 (21-32) mEq/L Anion Gap 13.0 (5-15) BUN 10 (7-18) mg/dL Creatinine 1.1 (0.7-1.3) mg/dL Est Cr Clr Drug Dosing 56.22 mL/min Estimated GFR (MDRD) > 60 (>60) mL/min BUN/Creatinine Ratio 9.1 L (14-18) Glucose 115 (83-115) mg/dL Calcium 8.6 (8.5-10.1) mg/dL Total Bilirubin 1.5 H (0.2-1.0) mg/dL AST 38 H (15-37) U/L ALT 22 (16-63) U/L Alkaline Phosphatase 75 (46-116) U/L Total Protein 7.0 (6.4-8.2) g/dl Albumin 2.8 L (3.4-5.0) g/dl Globulin 4.2 gm/dL Albumin/Globulin Ratio 0.7 L (1-2) Ethyl Alcohol 0.00 (0.00) gm% Med Orders - Current: Current Medications Aspirin (Ecotrin) 325 mg PO BID [facility] Bisacodyl (Dulcolax) 5 mg PO DAILY PRN PRN Reason: Constipation Calcium Carbonate (Calcium Carbonate/Vitamin D 600 Mg-200 Unit) 1 tab PO BID [facility] Last Admin: 03/13/19 20:15 Dose: 1 tab Cyclobenzaprine HCl (Flexeril) 10 mg PO BID PRN PRN Reason: Spasms Last Admin: 03/14/19 06:18 Dose: 10 mg Dicyclomine HCl (Bentyl) 20 mg PO Q48H PRN PRN Reason: Abdominal cramps/diarrhea Docusate Sodium (Colace) 100 mg PO BID [facility] Last Admin: 03/13/19 20:15 Dose: 100 mg Folic Acid (Folic Acid) 1 mg PO DAILY [facility] Cefazolin Sodium/Dextrose 2 gm (/ Premix) 50 mls @ 100 mls/hr IV Q8H [facility] Stop: 03/14/19 07:29 Last Admin: 03/14/19 06:17 Dose: 100 mls/hr Lorazepam (Ativan) 0 mg IVPUSH Q1H PRN; Protocol PRN Reason: Withdrawal Symptoms Metoprolol Succinate (Toprol Xl) 25 mg PO DAILY [facility] Morphine Sulfate (Morphine) 2 mg IVPUSH Q2H PRN PRN Reason: Breakthrough Pain Naloxone HCl (Narcan) 0.1 mg IVPUSH Q5M PRN PRN Reason: Oversedation Ondansetron HCl (Zofran) 4 mg IVPUSH Q6H PRN PRN Reason: Nausea/Vomiting Oxycodone/Acetaminophen (Percocet 325-5 Mg) 1 - 2 tab PO Q4H PRN PRN Reason: Pain Last Admin: 03/13/19 16:42 Dose: 2 tab Senna (Senna) 8.6 mg PO BID PRN PRN Reason: Constipation Sodium Chloride (Saline Flush) 10 ml FLUSH ASDIRECTED PRN PRN Reason: Keep Vein Open Tamsulosin HCl (Flomax) 0.4 mg PO BID [facility] Last Admin: 03/13/19 20:15 Dose: 0.4 mg Vit A/Vit C/Vit E/Selen/Cu/Zn/Lutei (Icaps Mv) 1 tab PO DAILY [facility] Discontinued Medications Bupivacaine HCl (Marcaine 0.25%) Confirm Administered Dose 30 ml .ROUTE .STK- MED ONE Stop: 03/13/19 06:36 Last Admin: 03/13/19 08:30 Dose: 30 ml Bupivacaine HCl (Sensorcaine-Mpf 0.75%) Confirm Administered Dose 30 ml .ROUTE .STK-MED ONE Stop: 03/13/19 07:19 Cefazolin Sodium (Ancef) Confirm Administered Dose 2 gm .ROUTE .STK-MED ONE Stop: 03/13/19 06:36 Last Admin: 03/13/19 08:28 Dose: 2 gm Cefazolin Sodium (Ancef) Confirm Administered Dose 1 gm .ROUTE .STK-MED ONE Stop: 03/13/19 06:52 Cefazolin Sodium (Ancef) Confirm Administered Dose 1 gm .ROUTE .STK-MED ONE Stop: 03/13/19 06:52 Morphine Sulfate 8 mg/Epinephrine HCl 0.3 mg/Cefuroxime Sodium 750 mg/Sodium Chloride 27.9 ml 0 mg .XX ONETIME ONE Stop: 03/13/19 07:16 Last Admin: 03/13/19 08:30 Dose: 758.3 mg Diphenhydramine HCl (Benadryl) 25 mg PO ONETIME ONE Stop: 03/13/19 12:04 Last Admin: 03/13/19 12:23 Dose: 25 mg Epinephrine HCl (Adrenalin) Confirm Administered Dose 1 mg .ROUTE .STK-MED ONE Stop: 03/13/19 07:46 Fentanyl (Sublimaze) Confirm Administered Dose 100 mcg .ROUTE .STK-MED ONE Stop: 03/13/19 06:49 Lactated Ringer's (Ringers, Lactated) 1,000 mls @ 125 mls/hr IV ASDIRECTED [facility] Last Admin: 03/13/19 06:46 Dose: 125 mls/hr Lactated Ringer's (Ringers, Lactated) Confirm Administered Dose 1,000 mls @ as directed .ROUTE .STK-MED ONE Stop: 03/13/19 07:54 Iodine (Iodine 2% Mild Tincture) Confirm Administered Dose 30 ml .ROUTE .STK- MED ONE Stop: 03/13/19 06:36 Last Admin: 03/13/19 08:26 Dose: 18 ml Lidocaine/Sodium Bicarbonate (Buffered Lidocaine 1% In Ns 8.4%) 0.25 ml IDERM ONETIME PRN PRN Reason: Prior to IV Start Last Admin: 03/13/19 06:45 Dose: 0.25 ml Midazolam HCl (Versed 1 Mg/Ml) Confirm Administered Dose 2 mg .ROUTE .STK-MED ONE Stop: 03/13/19 06:49 Midazolam HCl (Versed 1 Mg/Ml) Confirm Administered Dose 2 mg .ROUTE .STK-MED ONE Stop: 03/13/19 07:31 Midazolam HCl (Versed 1 Mg/Ml) Confirm Administered Dose 2 mg .ROUTE .STK-MED ONE Stop: 03/13/19 07:33 Midazolam HCl (Versed 1 Mg/Ml) Confirm Administered Dose 2 mg .ROUTE .STK-MED ONE Stop: 03/13/19 07:41 Midazolam HCl (Versed 1 Mg/Ml) Confirm Administered Dose 2 mg .ROUTE .STK-MED ONE Stop: 03/13/19 08:40 Midazolam HCl (Versed 1 Mg/Ml) Confirm Administered Dose 2 mg .ROUTE .STK-MED ONE Stop: 03/13/19 08:40 Non-Formulary Medication (Multivitamin [Multivitamins]) 1 tab PO DAILY [facility] Propofol (Diprivan 20 Ml) Confirm Administered Dose 200 mg .ROUTE .STK-MED ONE Stop: 03/13/19 06:49 Ropivacaine (Naropin 0.5%) Confirm Administered Dose 30 ml .ROUTE .STK-MED ONE Stop: 03/13/19 07:46 Tranexamic Acid (Cyklokapron) Confirm Administered Dose 1,000 mg .ROUTE .STK- MED ONE Stop: 03/13/19 06:36 Last Admin: 03/13/19 08:10 Dose: 1,000 mg Vancomycin HCl (Vancomycin) Confirm Administered Dose 1 gm .ROUTE .STK-MED ONE Stop: 03/13/19 06:36 Last Admin: 03/13/19 08:10 Dose: 1 gm - Exam Quality Assessment: Supplemental Oxygen, DVT Prophylaxis General: Alert, Oriented, Cooperative, No Acute Distress HEENT: Pupils Equal, Pupils Reactive, EOMI, Mucous Membr. Moist/[place] Neck: Supple, Trachea Midline, No JVD Lungs: Clear to Auscultation, Normal Respiratory Effort Cardiovascular: Regular Rate, Regular Rhythm GI/Abdominal Exam: Normal Bowel Sounds, Soft, Non-Tender, No Distention, No Abnormal Bruit (Male) Exam: Deferred Back Exam: Normal Inspection, Full Range of Motion Extremities: Normal Capillary Refill, Pedal Edema (mild), Leg Pain, Limited Range of Motion, Other Peripheral Pulses: 2+: Radial (L), Radial (R), Dorsalis Pedis (L), Dorsalis Pedis (R) Skin: Warm, Dry, Intact Neurological: No New Focal Deficit Psy/Mental Status: Alert, Normal Affect Consult PN Assessment/Plan POD#: 1 Procedures: Procedures AIRWAY INHALATION TREATMENT (07/17/15) ASSAY OF BLOOD/URIC ACID (01/14/19) ASSAY OF DIGOXIN TOTAL (07/17/15) ASSAY OF MAGNESIUM (01/14/19) ASSAY OF NATRIURETIC PEPTIDE (01/14/19) ASSAY OF TROPONIN QUANT (07/17/15) ASSAY THYROID STIM HORMONE (12/17/18) BL SMEAR W/DIFF WBC COUNT (01/14/19) BLOOD TYPING SEROLOGIC ABO (10/06/15) BLOOD TYPING SEROLOGIC RH(D) (10/06/15) C DIFF AMPLIFIED PROBE (12/18/18) C-REACTIVE PROTEIN (01/14/19) CARDIOVASCULAR STRESS TEST (03/02/18) CHEST X-RAY 1 VIEW FRONTAL (07/17/15) CHEST X-RAY 2VW FRONTAL&LATL (10/06/15) COMPLETE CBC AUTOMATED (01/14/19) COMPLETE CBC W/AUTO DIFF WBC (12/17/18) COMPREHEN METABOLIC PANEL (01/14/19) CREATINE MB FRACTION (07/17/15) CRYPTOSPORIDIUM AG IA (12/18/18) CT ANGIOGRAPHY CHEST (01/18/19) ELECTROCARDIOGRAM TRACING (07/17/15) EMERGENCY DEPT VISIT (12/19/18) EMERGENCY DEPT VISIT (10/30/15) EMERGENCY DEPT VISIT (10/30/15) EMERGENCY DEPT VISIT (07/17/15) EVALUATE PT USE OF INHALER (07/17/15) FIBRIN DEGRADATION QUANT (01/14/19) GAIT TRAINING THERAPY (07/17/15) GIARDIA AG IA (12/18/18) GLYCOSYLATED HEMOGLOBIN TEST (01/14/19) HT MUSCLE IMAGE SPECT MULT (03/02/18) INSERT TEMP BLADDER CATH (10/30/15) LEUKOCYTE ASSESSMENT FECAL (12/17/18) LIPID PANEL (01/14/19) METABOLIC PANEL TOTAL CA (10/06/15) OCCULT BLOOD FECES (12/17/18) OFFICE/OUTPATIENT VISIT NEW (12/17/18) OT EVALUATION (07/17/15) PROTHROMBIN TIME (10/06/15) PT EVALUATION (07/17/15) RBC ANTIBODY SCREEN (10/06/15) RBC SED RATE AUTOMATED (12/19/18) ROTAVIRUS AG IA (12/18/18) ROUTINE VENIPUNCTURE (01/14/19) SHIGA-LIKE TOXIN AG IA (12/19/18) STOOL CULTR AEROBIC BACT EA (12/19/18) THER/PROPH/DIAG INJ IV PUSH (07/17/15) THROMBOPLASTIN TIME PARTIAL (07/17/15) TTE W/DOPPLER COMPLETE (01/18/19) URINALYSIS AUTO W/SCOPE (12/19/18) US EXAM ABDOM COMPLETE (01/18/19) US URINE CAPACITY MEASURE (10/30/15) VITAMIN B-12 (01/14/19) X-RAY EXAM CHEST 2 VIEWS (01/14/19) X-RAY EXAM OF ABDOMEN (10/30/15) (1) S/P total knee arthroplasty SNOMED Code(s): 0537912530268, 405718778, 1611293169768 Code(s): Z96.659 - PRESENCE OF UNSPECIFIED ARTIFICIAL KNEE JOINT Priority: High Current Visit: Yes Qualifiers: Laterality: left Qualified Code(s): Z96.652 - Presence of left artificial knee joint (2) Osteoarthritis SNOMED Code(s): 465759220 Code(s): M19.90 - UNSPECIFIED OSTEOARTHRITIS, UNSPECIFIED SITE Priority: High Current Visit: Yes Qualifiers: Osteoarthritis location: knee Osteoarthritis type: primary Laterality: left Qualified Code(s): M17.12 - Unilateral primary osteoarthritis, left knee (3) History of aneurysm SNOMED Code(s): 173517471 Code(s): Z86.79 - PERSONAL HISTORY OF OTHER DISEASES OF THE CIRCULATORY SYSTEM Priority: Medium Current Visit: No (4) CAD (coronary artery disease) SNOMED Code(s): 27738373 Code(s): I25.10 - ATHSCL HEART DISEASE OF [place] CORONARY ARTERY W/O ANG PCTRS Priority: Medium Current Visit: No Qualifiers: Coronary Disease-Associated Artery/Lesion type: unspecified vessel or lesion type [place] vs. transplanted heart: unspecified whether [place] or transplanted heart Associated angina: angina presence unspecified Qualified Code(s): I25.10 - Atherosclerotic heart disease of [place] coronary artery without angina pectoris (5) CHF (congestive heart failure) SNOMED Code(s): 14288675 Code(s): I50.9 - HEART FAILURE, UNSPECIFIED Priority: Medium Current Visit: No Qualifiers: Heart failure type: unspecified Heart failure chronicity: unspecified Qualified Code(s): I50.9 - Heart failure, unspecified (6) COPD (chronic obstructive pulmonary disease) SNOMED Code(s): 71192329 Code(s): J44.9 - CHRONIC OBSTRUCTIVE PULMONARY DISEASE, UNSPECIFIED Priority: Medium Current Visit: No Qualifiers: COPD type: unspecified COPD Qualified Code(s): J44.9 - Chronic obstructive pulmonary disease, unspecified (7) GERD (gastroesophageal reflux disease) SNOMED Code(s): 464442083 Code(s): K21.9 - GASTRO-ESOPHAGEAL REFLUX DISEASE WITHOUT ESOPHAGITIS Priority: Low Current Visit: No Qualifiers: Esophagitis presence: esophagitis presence not specified Qualified Code(s) : K21.9 - Gastro-esophageal reflux disease without esophagitis (8) Abnormal liver function SNOMED Code(s): 16327694 Code(s): R94.5 - ABNORMAL RESULTS OF LIVER FUNCTION STUDIES Priority: Low Current Visit: No (9) BPH (benign prostatic hyperplasia) SNOMED Code(s): 227330041 Code(s): N40.0 - BENIGN PROSTATIC HYPERPLASIA WITHOUT LOWER URINRY TRACT SYMP Priority: Medium Current Visit: No Qualifiers: Lower urinary tract symptom presence: unspecified whether lower urinary tract symptoms present Qualified Code(s): N40.0 - Benign prostatic hyperplasia without lower urinary tract symptoms (10) Chronic headache SNOMED Code(s): 747930268 Code(s): R51 - HEADACHE Priority: Low Current Visit: No Qualifiers: Headache type: unspecified Intractability: not intractable Qualified Code (s): R51 - Headache (11) History of cardiac radiofrequency ablation SNOMED Code(s): 847705878, 351390391 Code(s): Z98.890 - OTHER SPECIFIED POSTPROCEDURAL STATES Priority: Low Current Visit: No Problem List Initiated/Reviewed/Updated: Yes Plan: I/P: Acute: S/P right total knee arthroplasty - post-operative day 1 -DVT prophylaxis and pain management per primary care team -PT/OT -IS/RT -Monitor oxygen saturation -Titrate oxygen as needed -Home medications reviewed -Vital signs stable -Monitor labs -Pre-operative Hgb was 13.9; Now 10.4 -Pre-operative GFR was 58; Now >60 -Pre-operative creatinine was 1.2; Now 1.2 -Pre-operative BUN was 16; Now 10 -Pre-operative Bilirubin was 1.6; Now 1.5 -Pre-operative LVEF is 55-60% Osteoarthritis of right knee -Pain management per primary care team Chronic ETOH use -Reports 2-4 shots of mckenna a day -Rarely goes a day without drinking -Last drink reported to be on 03/11 - only had 1oz of mckenna -CIWAA protocol as directed -Ativan for abortive seizures -Add Thiamine -Home folic acid and MV -Monitor for worsening CIWAAs/Symptoms -Post-operative LFTs are grossly normal; Bilirubin as above Chronic: HF with preserved EF 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 His PCP is Dr. Medley Thank you for allowing us to participate in the care of this patient!! LOS >96 Hrs anticipated pending placement. Due to weekend anticipated discharge is 03/18/19. This is subject to change if patient improves.
[2019-03-14] MEDS: Aspirin 325 MG Tab.EC PO SCH ×2 (08:49→21:03)
[2019-03-14] MEDS: Metoprolol Succinate 25 MG Tab.ER PO SCH (08:49)
[2019-03-14] MEDS: Docusate Sodium 100 MG Cap PO SCH ×2 (08:49→21:03)
[2019-03-14] MEDS: Thiamine 100 MG Tab PO SCH (08:49)
[2019-03-14] MEDS: Folic Acid 1 MG Tab PO SCH (08:49)
[2019-03-14] MEDS: Multivitamins with Minerals/Folic Acid/Lutein/Zeaxanth Tab PO SCH (08:50)
[2019-03-14] MEDS: Tamsulosin 0.4 MG Cap.ER PO SCH ×2 (08:50→21:03)
[2019-03-14] MEDS: Calcium Carbonate/Vitamin D3 600 MG-200 Units Tab PO SCH ×2 (08:50→21:03)
[2019-03-14] MEDS: Acetaminophen/oxyCODONE 325-5 MG Tab PO PRN ×3 (08:51→21:03)
[2019-03-14] MEDS ORDERED: Non-Formulary Medication 1 Each (Multivitamin [Multivitamins] 1 TAB) PO SCH (09:00)
[2019-03-14] MEDS ORDERED: Dicyclomine 10 MG Cap PO PRN (09:00)
--- NOTE | 2019-03-14 10:26 | PCM48HPAN ---
Post Anesthesia Note - EVALUATION WITHIN 48HRS OF ANESTHETIC Vital Signs in Normal Range: Yes Patient Participated in Evaluation: Yes Respiratory Function Stable: Yes (wearing oxygen with NC) Airway Patent: Yes Cardiovascular Function Stable: Yes Hydration Status Stable: Yes Pain Control Satisfactory: Yes Nausea and Vomiting Control Satisfactory: Yes Mental Status Recovered: Yes (complains of knee pain.) Pulse Rate: 80 Resp Rate: 16 Temperature: 98.2 F Blood Pressure: 125/68
[2019-03-14] MEDS ORDERED: LORazepam 2 MG/ML SDV IVPUSH PRN ×2 (11:27→11:54)
--- NOTE | 2019-03-14 15:42 | PCM.SURGPN ---
- General Info Date of Service: 03/14/19 POD#: 1 Functional Status: Reports: Pain Controlled, Tolerating Diet, Ambulating, Incentive Spirometry, Other - Patient Data Vitals - Most Recent: Last Vital Signs Temp 98.8 F 03/14/19 11:48 Pulse 69 03/14/19 11:48 Resp 16 03/14/19 11:48 BP 131/69 03/14/19 11:48 Pulse Ox 93 L 03/14/19 11:48 Weight - Most Recent: 239 lb 1.6 oz I&O - Last 24 Hours: Intake & Output 03/14/19 03/14/19 03/14/19 06:59 14:59 22:59 Intake Total 750 240 Output Total 350 Balance 400 240 Lab Results Last 24 Hrs: Laboratory Results - last 24 hr 03/14/19 03/14/19 Range/Units 04:50 04:50 WBC 8.77 (4.23-9.07) K/mm3 RBC 3.22 L (4.63-6.08) M/mm3 Hgb 10.4 L D (13.7-17.5) gm/L Hct 34.1 L (40.1-51.0) % MCV 105.9 H (79.0-92.2) fl MCH 32.3 H (25.7-32.2) pg MCHC 30.5 L (32.2-35.5) g/dl RDW Std Deviation 55.0 H (35.1-43.9) fL Plt Count 139 L (163-337) K/mm3 MPV 9.7 (9.4-12.3) fl Sodium 140 (136-145) mEq/L Potassium 4.0 (3.5-5.1) mEq/L Chloride 103 (98-107) mEq/L Carbon Dioxide 28 (21-32) mEq/L Anion Gap 13.0 (5-15) BUN 10 (7-18) mg/dL Creatinine 1.1 (0.7-1.3) mg/dL Est Cr Clr Drug Dosing 56.22 mL/min Estimated GFR (MDRD) > 60 (>60) mL/min BUN/Creatinine Ratio 9.1 L (14-18) Glucose 115 (83-115) mg/dL Calcium 8.6 (8.5-10.1) mg/dL Total Bilirubin 1.5 H (0.2-1.0) mg/dL AST 38 H (15-37) U/L ALT 22 (16-63) U/L Alkaline Phosphatase 75 (46-116) U/L Total Protein 7.0 (6.4-8.2) g/dl Albumin 2.8 L (3.4-5.0) g/dl Globulin 4.2 gm/dL Albumin/Globulin Ratio 0.7 L (1-2) Med Orders - Current: Current Medications Aspirin (Ecotrin) 325 mg PO BID [facility] Last Admin: 03/14/19 08:49 Dose: 325 mg Bisacodyl (Dulcolax) 5 mg PO DAILY PRN PRN Reason: Constipation Calcium Carbonate (Calcium Carbonate/Vitamin D 600 Mg-200 Unit) 1 tab PO BID [facility] Last Admin: 03/14/19 08:50 Dose: 1 tab Cyclobenzaprine HCl (Flexeril) 10 mg PO BID PRN PRN Reason: Spasms Last Admin: 03/14/19 06:18 Dose: 10 mg Dicyclomine HCl (Bentyl) 20 mg PO Q48H PRN PRN Reason: Abdominal cramps/diarrhea Docusate Sodium (Colace) 100 mg PO BID [facility] Last Admin: 03/14/19 08:49 Dose: 100 mg Folic Acid (Folic Acid) 1 mg PO DAILY [facility] Last Admin: 03/14/19 08:49 Dose: 1 mg Furosemide (Lasix) 40 mg PO DAILY [facility] Lorazepam (Ativan) 0 mg IVPUSH ASDIRECTED PRN; Protocol PRN Reason: Withdrawal Symptoms Lorazepam (Ativan) 2 mg IVPUSH Q4H PRN PRN Reason: Seizures Metoprolol Succinate (Toprol Xl) 25 mg PO DAILY [facility] Last Admin: 03/14/19 08:49 Dose: 25 mg Morphine Sulfate (Morphine) 2 mg IVPUSH Q2H PRN PRN Reason: Breakthrough Pain Last Admin: 03/14/19 11:14 Dose: 2 mg Naloxone HCl (Narcan) 0.1 mg IVPUSH Q5M PRN PRN Reason: Oversedation Ondansetron HCl (Zofran) 4 mg IVPUSH Q6H PRN PRN Reason: Nausea/Vomiting Oxycodone/Acetaminophen (Percocet 325-5 Mg) 1 - 2 tab PO Q4H PRN PRN Reason: Pain Last Admin: 03/14/19 14:54 Dose: 2 tab Senna (Senna) 8.6 mg PO BID PRN PRN Reason: Constipation Sodium Chloride (Saline Flush) 10 ml FLUSH ASDIRECTED PRN PRN Reason: Keep Vein Open Tamsulosin HCl (Flomax) 0.4 mg PO BID [facility] Last Admin: 03/14/19 08:50 Dose: 0.4 mg Thiamine HCl (Vitamin B-1) 100 mg PO DAILY [facility] Last Admin: 03/14/19 08:49 Dose: 100 mg Vit A/Vit C/Vit E/Selen/Cu/Zn/Lutei (Icaps Mv) 1 tab PO DAILY [facility] Last Admin: 03/14/19 08:50 Dose: 1 tab Discontinued Medications Bupivacaine HCl (Marcaine 0.25%) Confirm Administered Dose 30 ml .ROUTE .STK- MED ONE Stop: 03/13/19 06:36 Last Admin: 03/13/19 08:30 Dose: 30 ml Bupivacaine HCl (Sensorcaine-Mpf 0.75%) Confirm Administered Dose 30 ml .ROUTE .STK-MED ONE Stop: 03/13/19 07:19 Cefazolin Sodium (Ancef) Confirm Administered Dose 2 gm .ROUTE .STK-MED ONE Stop: 03/13/19 06:36 Last Admin: 03/13/19 08:28 Dose: 2 gm Cefazolin Sodium (Ancef) Confirm Administered Dose 1 gm .ROUTE .STK-MED ONE Stop: 03/13/19 06:52 Cefazolin Sodium (Ancef) Confirm Administered Dose 1 gm .ROUTE .STK-MED ONE Stop: 03/13/19 06:52 Morphine Sulfate 8 mg/Epinephrine HCl 0.3 mg/Cefuroxime Sodium 750 mg/Sodium Chloride 27.9 ml 0 mg .XX ONETIME ONE Stop: 03/13/19 07:16 Last Admin: 03/13/19 08:30 Dose: 758.3 mg Diphenhydramine HCl (Benadryl) 25 mg PO ONETIME ONE Stop: 03/13/19 12:04 Last Admin: 03/13/19 12:23 Dose: 25 mg Epinephrine HCl (Adrenalin) Confirm Administered Dose 1 mg .ROUTE .STK-MED ONE Stop: 03/13/19 07:46 Fentanyl (Sublimaze) Confirm Administered Dose 100 mcg .ROUTE .STK-MED ONE Stop: 03/13/19 06:49 Lactated Ringer's (Ringers, Lactated) 1,000 mls @ 125 mls/hr IV ASDIRECTED [facility] Last Admin: 03/13/19 06:46 Dose: 125 mls/hr Cefazolin Sodium/Dextrose 2 gm (/ Premix) 50 mls @ 100 mls/hr IV Q8H [facility] Stop: 03/14/19 07:29 Last Admin: 03/14/19 06:17 Dose: 100 mls/hr Lactated Ringer's (Ringers, Lactated) Confirm Administered Dose 1,000 mls @ as directed .ROUTE .STK-MED ONE Stop: 03/13/19 07:54 Iodine (Iodine 2% Mild Tincture) Confirm Administered Dose 30 ml .ROUTE .STK- MED ONE Stop: 03/13/19 06:36 Last Admin: 03/13/19 08:26 Dose: 18 ml Lidocaine/Sodium Bicarbonate (Buffered Lidocaine 1% In Ns 8.4%) 0.25 ml IDERM ONETIME PRN PRN Reason: Prior to IV Start Last Admin: 03/13/19 06:45 Dose: 0.25 ml Lorazepam (Ativan) 0 mg IVPUSH Q1H PRN; Protocol PRN Reason: Withdrawal Symptoms Midazolam HCl (Versed 1 Mg/Ml) Confirm Administered Dose 2 mg .ROUTE .STK-MED ONE Stop: 03/13/19 06:49 Midazolam HCl (Versed 1 Mg/Ml) Confirm Administered Dose 2 mg .ROUTE .STK-MED ONE Stop: 03/13/19 07:31 Midazolam HCl (Versed 1 Mg/Ml) Confirm Administered Dose 2 mg .ROUTE .STK-MED ONE Stop: 03/13/19 07:33 Midazolam HCl (Versed 1 Mg/Ml) Confirm Administered Dose 2 mg .ROUTE .STK-MED ONE Stop: 03/13/19 07:41 Midazolam HCl (Versed 1 Mg/Ml) Confirm Administered Dose 2 mg .ROUTE .STK-MED ONE Stop: 03/13/19 08:40 Midazolam HCl (Versed 1 Mg/Ml) Confirm Administered Dose 2 mg .ROUTE .STK-MED ONE Stop: 03/13/19 08:40 Non-Formulary Medication (Multivitamin [Multivitamins]) 1 tab PO DAILY [facility] Propofol (Diprivan 20 Ml) Confirm Administered Dose 200 mg .ROUTE .STK-MED ONE Stop: 03/13/19 06:49 Ropivacaine (Naropin 0.5%) Confirm Administered Dose 30 ml .ROUTE .STK-MED ONE Stop: 03/13/19 07:46 Tranexamic Acid (Cyklokapron) Confirm Administered Dose 1,000 mg .ROUTE .STK- MED ONE Stop: 03/13/19 06:36 Last Admin: 03/13/19 08:10 Dose: 1,000 mg Vancomycin HCl (Vancomycin) Confirm Administered Dose 1 gm .ROUTE .STK-MED ONE Stop: 03/13/19 06:36 Last Admin: 03/13/19 08:10 Dose: 1 gm - Exam Wound/Incisions: Dressing Dry and Intact General: Alert, Cooperative, No Acute Distress Lungs: Normal Respiratory Effort Extremities: Other (NVS intact for BLE. Verena's negative.) - Problem List Review Problem List Initiated/Reviewed/Updated: Yes - My Orders Last 24 Hours: Active Orders 24 hr Category Date Time Status CIWAA Assessment [RC] Q4HR Care 03/14/19 11:27 Active CBC WITH AUTO DIFF [HEME] AM Lab 03/15/19 05:11 Ordered CBC WITH AUTO DIFF [HEME] AM Lab 03/16/19 05:11 Ordered CBC WITH AUTO DIFF [HEME] AM Lab 03/17/19 05:11 Ordered CBC WITH AUTO DIFF [HEME] AM Lab 03/18/19 05:11 Ordered CMP [COMPREHENSIVE METABOLIC PN,CMP] [CHEM] AM Lab 03/15/19 05:11 Ordered CMP [COMPREHENSIVE METABOLIC PN,CMP] [CHEM] AM Lab 03/16/19 05:11 Ordered CMP [COMPREHENSIVE METABOLIC PN,CMP] [CHEM] AM Lab 03/17/19 05:11 Ordered CMP [COMPREHENSIVE METABOLIC PN,CMP] [CHEM] AM Lab 03/18/19 05:11 Ordered MAGNESIUM [CHEM] AM Lab 03/15/19 05:11 Ordered MAGNESIUM [CHEM] AM Lab 03/16/19 05:11 Ordered MAGNESIUM [CHEM] AM Lab 03/17/19 05:11 Ordered MAGNESIUM [CHEM] AM Lab 03/18/19 05:11 Ordered Aspirin [Ecotrin] Med 03/14/19 09:00 Active 325 mg PO BID Calcium Carbonate/Vitamin D3 [Calcium Carbonate/Vitamin Med 03/13/19 21:00 Active D 600 MG-200 Unit] 1 tab PO BID Dicyclomine [Bentyl] Med 03/14/19 09:00 Active 20 mg PO Q48H PRN Folic Acid Med 03/14/19 09:00 Active 1 mg PO DAILY Furosemide [Lasix] Med 03/15/19 09:00 Active 40 mg PO DAILY LORazepam [Ativan] Med 03/14/19 11:54 Active 2 mg IVPUSH Q4H PRN LORazepam [Ativan] Med 03/14/19 11:27 Active See Protocol IVPUSH ASDIRECTED PRN Metoprolol Succinate [Toprol XL] Med 03/14/19 09:00 Active 25 mg PO DAILY Multivitamins/Min/FA/Lut/Zeax [ICaps MV] Med 03/14/19 09:00 Active 1 tab PO DAILY Tamsulosin [Flomax] Med 03/13/19 21:00 Active 0.4 mg PO BID Thiamine [Vitamin B-1] Med 03/14/19 09:00 Active 100 mg PO DAILY Medication Orders Aspirin (Ecotrin) 325 mg PO BID [facility] Last Admin: 03/14/19 08:49 Dose: 325 mg Bisacodyl (Dulcolax) 5 mg PO DAILY PRN PRN Reason: Constipation Calcium Carbonate (Calcium Carbonate/Vitamin D 600 Mg-200 Unit) 1 tab PO BID [facility] Last Admin: 03/14/19 08:50 Dose: 1 tab Admin: 03/13/19 20:15 Dose: 1 tab Cyclobenzaprine HCl (Flexeril) 10 mg PO BID PRN PRN Reason: Spasms Last Admin: 03/14/19 06:18 Dose: 10 mg Admin: 03/13/19 13:24 Dose: 10 mg Dicyclomine HCl (Bentyl) 20 mg PO Q48H PRN PRN Reason: Abdominal cramps/diarrhea Docusate Sodium (Colace) 100 mg PO BID [facility] Last Admin: 03/14/19 08:49 Dose: 100 mg Admin: 03/13/19 20:15 Dose: 100 mg Admin: 03/13/19 12:19 Dose: Not Given Folic Acid (Folic Acid) 1 mg PO DAILY [facility] Last Admin: 03/14/19 08:49 Dose: 1 mg Furosemide (Lasix) 40 mg PO DAILY [facility] Lorazepam (Ativan) 0 mg IVPUSH ASDIRECTED PRN; Protocol PRN Reason: Withdrawal Symptoms Lorazepam (Ativan) 2 mg IVPUSH Q4H PRN PRN Reason: Seizures Metoprolol Succinate (Toprol Xl) 25 mg PO DAILY [facility] Last Admin: 03/14/19 08:49 Dose: 25 mg Morphine Sulfate (Morphine) 2 mg IVPUSH Q2H PRN PRN Reason: Breakthrough Pain Last Admin: 03/14/19 11:14 Dose: 2 mg Naloxone HCl (Narcan) 0.1 mg IVPUSH Q5M PRN PRN Reason: Oversedation Ondansetron HCl (Zofran) 4 mg IVPUSH Q6H PRN PRN Reason: Nausea/Vomiting Oxycodone/Acetaminophen (Percocet 325-5 Mg) 1 - 2 tab PO Q4H PRN PRN Reason: Pain Last Admin: 03/14/19 14:54 Dose: 2 tab Admin: 03/14/19 08:51 Dose: 1 tab Admin: 03/13/19 16:42 Dose: 2 tab Admin: 03/13/19 12:23 Dose: 2 tab Senna (Senna) 8.6 mg PO BID PRN PRN Reason: Constipation Sodium Chloride (Saline Flush) 10 ml FLUSH ASDIRECTED PRN PRN Reason: Keep Vein Open Tamsulosin HCl (Flomax) 0.4 mg PO BID [facility] Last Admin: 03/14/19 08:50 Dose: 0.4 mg Admin: 03/13/19 20:15 Dose: 0.4 mg Thiamine HCl (Vitamin B-1) 100 mg PO DAILY [facility] Last Admin: 03/14/19 08:49 Dose: 100 mg Vit A/Vit C/Vit E/Selen/Cu/Zn/Lutei (Icaps Mv) 1 tab PO DAILY [facility] Last Admin: 03/14/19 08:50 Dose: 1 tab - Assessment Assessment (Free Text/Narrative):: POD#1 - right TKA - Plan Plan (Free Text/Narrative):: 1. ASA PO BID, frequent mobility, TEDs, SCDs. 2. Medical management per Hospitalist service. CIWA protocol. Mild confusion noted this morning. The pt remains on O2. 3. Hgb 10.4. 4. Suspect d/c to [facility] on 03-18-2019. 5. Continue with PT and OT. 6. The pt will remain in Hospital > 96 hours while awaking custodial placement, for continued monitoring, and for PT and OT services. The pt was evaluated by Dr. Cesar saenz.
[2019-03-15] MEDS: Acetaminophen/oxyCODONE 325-5 MG Tab PO PRN ×3 (06:28→22:08)
--- NOTE | 2019-03-15 06:31 | PCM.CONSN ---
- General Info Date of Service: 03/15/19 Admission Dx/Problem (Free Text): Admission Diagnosis/Problem Admission Diagnosis/Problem Osteoarthritis of knee Subjective Update: 03/14/19: In to see Ed. Family is at bedside. He is doing relatively well from our perspective. PT/OT has been recommending SNF. Unfortunately it will likely be Monday until he is accepted. Otherwise his labs and vital signs continue to look good. No nursing or patient concerns. No signs of detoxing. 03/15/19: In to see Ed. His is at bedside. He continues to do well from a hospitalist standpoint. He does report how he will have episodes of confusion at times during the night. Nursing reports he is able to be easily re-directed. Labs and vital signs remain stable. He reports a tremor but otherwise no detox symptoms. Should he remain symptom free we can consider stopping CIWA protocol tomorrow. PT/OT still recommending SNF rehab stay. He also does not feel he would be safe for discharge home. Will be awaiting acceptance and placement - likely Monday. Functional Status: Reports: Pain Controlled, Tolerating Diet, Ambulating, Urinating, Incentive Spirometry. Denies: New Symptoms - Review of Systems General: Reports: No Symptoms. Denies: Fever, Chills HEENT: Reports: No Symptoms. Denies: Headaches, Sore Throat Pulmonary: Reports: No Symptoms. Denies: Shortness of Breath, Pleuritic Chest Pain, Cough, Sputum, Wheezing Cardiovascular: Reports: No Symptoms. Denies: Chest Pain, Palpitations Gastrointestinal: Reports: No Symptoms. Denies: Abdominal Pain, Constipation, Diarrhea, Nausea, Vomiting Genitourinary: Reports: No Symptoms. Denies: Pain Musculoskeletal: Reports: Leg Pain Skin: Reports: No Symptoms. Denies: Cyanosis Neurological: Reports: Tremors (mild ), Difficulty Walking, Weakness, Gait Disturbance. Denies: Confusion Psychiatric: Reports: No Symptoms - Patient Data Vitals - Most Recent: Last Vital Signs Temp 98.2 F 03/15/19 04:02 Pulse 67 03/15/19 04:02 Resp 16 03/15/19 04:02 BP 122/73 03/15/19 04:02 Pulse Ox 95 03/15/19 04:02 Weight - Most Recent: 230 lb I&O - Last 24 Hours: Intake & Output 0603/14/19 03/15/19 14:59 22:59 06:59 Intake Total 240 1760 400 Output Total 600 1200 Balance 240 1160 -800 Lab Results Last 24 Hours: Laboratory Results - last 24 hr 03/15/19 Range/Units 05:39 WBC 7.61 (4.23-9.07) K/mm3 RBC 2.92 L (4.63-6.08) M/mm3 Hgb 9.2 L (13.7-17.5) gm/L Hct 30.9 L (40.1-51.0) % MCV 105.8 H (79.0-92.2) fl MCH 31.5 (25.7-32.2) pg MCHC 29.8 L (32.2-35.5) g/dl RDW Std Deviation 53.4 H (35.1-43.9) fL Plt Count 123 L (163-337) K/mm3 MPV 10.0 (9.4-12.3) fl Neut % (Auto) 67.7 (34.0-67.9) % Lymph % (Auto) 16.0 L (21.8-53.1) % [place] % (Auto) 14.6 H (5.3-12.2) % Eos % (Auto) 1.1 (0.8-7.0) Baso % (Auto) 0.3 (0.1-1.2) % Neut # (Auto) 5.16 (1.78-5.38) K/mm3 Lymph # (Auto) 1.22 L (1.32-3.57) K/mm3 [place] # (Auto) 1.11 H (0.30-0.82) K/mm3 Eos # (Auto) 0.08 (0.04-0.54) K/mm3 Baso # (Auto) 0.02 (0.01-0.08) K/mm3 Med Orders - Current: Current Medications Aspirin (Ecotrin) 325 mg PO BID [facility] Last Admin: 03/14/19 21:03 Dose: 325 mg Bisacodyl (Dulcolax) 5 mg PO DAILY PRN PRN Reason: Constipation Calcium Carbonate (Calcium Carbonate/Vitamin D 600 Mg-200 Unit) 1 tab PO BID [facility] Last Admin: 03/14/19 21:03 Dose: 1 tab Cyclobenzaprine HCl (Flexeril) 10 mg PO BID PRN PRN Reason: Spasms Last Admin: 03/14/19 16:09 Dose: 10 mg Dicyclomine HCl (Bentyl) 20 mg PO Q48H PRN PRN Reason: Abdominal cramps/diarrhea Docusate Sodium (Colace) 100 mg PO BID [facility] Last Admin: 03/14/19 21:03 Dose: 100 mg Folic Acid (Folic Acid) 1 mg PO DAILY [facility] Last Admin: 03/14/19 08:49 Dose: 1 mg Furosemide (Lasix) 40 mg PO DAILY [facility] Lorazepam (Ativan) 0 mg IVPUSH ASDIRECTED PRN; Protocol PRN Reason: Withdrawal Symptoms Lorazepam (Ativan) 2 mg IVPUSH Q4H PRN PRN Reason: Seizures Metoprolol Succinate (Toprol Xl) 25 mg PO DAILY [facility] Last Admin: 03/14/19 08:49 Dose: 25 mg Morphine Sulfate (Morphine) 2 mg IVPUSH Q2H PRN PRN Reason: Breakthrough Pain Last Admin: 03/14/19 11:14 Dose: 2 mg Naloxone HCl (Narcan) 0.1 mg IVPUSH Q5M PRN PRN Reason: Oversedation Ondansetron HCl (Zofran) 4 mg IVPUSH Q6H PRN PRN Reason: Nausea/Vomiting Oxycodone/Acetaminophen (Percocet 325-5 Mg) 1 - 2 tab PO Q4H PRN PRN Reason: Pain Last Admin: 03/14/19 21:03 Dose: 2 tab Senna (Senna) 8.6 mg PO BID PRN PRN Reason: Constipation Last Admin: 03/14/19 21:03 Dose: 8.6 mg Sodium Chloride (Saline Flush) 10 ml FLUSH ASDIRECTED PRN PRN Reason: Keep Vein Open Tamsulosin HCl (Flomax) 0.4 mg PO BID [facility] Last Admin: 03/14/19 21:03 Dose: 0.4 mg Thiamine HCl (Vitamin B-1) 100 mg PO DAILY [facility] Last Admin: 03/14/19 08:49 Dose: 100 mg Vit A/Vit C/Vit E/Selen/Cu/Zn/Lutei (Icaps Mv) 1 tab PO DAILY [facility] Last Admin: 03/14/19 08:50 Dose: 1 tab Discontinued Medications Bupivacaine HCl (Marcaine 0.25%) Confirm Administered Dose 30 ml .ROUTE .STK- MED ONE Stop: 03/13/19 06:36 Last Admin: 03/13/19 08:30 Dose: 30 ml Bupivacaine HCl (Sensorcaine-Mpf 0.75%) Confirm Administered Dose 30 ml .ROUTE .STK-MED ONE Stop: 03/13/19 07:19 Cefazolin Sodium (Ancef) Confirm Administered Dose 2 gm .ROUTE .STK-MED ONE Stop: 03/13/19 06:36 Last Admin: 03/13/19 08:28 Dose: 2 gm Cefazolin Sodium (Ancef) Confirm Administered Dose 1 gm .ROUTE .STK-MED ONE Stop: 03/13/19 06:52 Cefazolin Sodium (Ancef) Confirm Administered Dose 1 gm .ROUTE .STK-MED ONE Stop: 03/13/19 06:52 Morphine Sulfate 8 mg/Epinephrine HCl 0.3 mg/Cefuroxime Sodium 750 mg/Sodium Chloride 27.9 ml 0 mg .XX ONETIME ONE Stop: 03/13/19 07:16 Last Admin: 03/13/19 08:30 Dose: 758.3 mg Diphenhydramine HCl (Benadryl) 25 mg PO ONETIME ONE Stop: 03/13/19 12:04 Last Admin: 03/13/19 12:23 Dose: 25 mg Epinephrine HCl (Adrenalin) Confirm Administered Dose 1 mg .ROUTE .STK-MED ONE Stop: 03/13/19 07:46 Fentanyl (Sublimaze) Confirm Administered Dose 100 mcg .ROUTE .STK-MED ONE Stop: 03/13/19 06:49 Lactated Ringer's (Ringers, Lactated) 1,000 mls @ 125 mls/hr IV ASDIRECTED [facility] Last Admin: 03/13/19 06:46 Dose: 125 mls/hr Cefazolin Sodium/Dextrose 2 gm (/ Premix) 50 mls @ 100 mls/hr IV Q8H [facility] Stop: 03/14/19 07:29 Last Admin: 03/14/19 06:17 Dose: 100 mls/hr Lactated Ringer's (Ringers, Lactated) Confirm Administered Dose 1,000 mls @ as directed .ROUTE .STK-MED ONE Stop: 03/13/19 07:54 Iodine (Iodine 2% Mild Tincture) Confirm Administered Dose 30 ml .ROUTE .STK- MED ONE Stop: 03/13/19 06:36 Last Admin: 03/13/19 08:26 Dose: 18 ml Lidocaine/Sodium Bicarbonate (Buffered Lidocaine 1% In Ns 8.4%) 0.25 ml IDERM ONETIME PRN PRN Reason: Prior to IV Start Last Admin: 03/13/19 06:45 Dose: 0.25 ml Lorazepam (Ativan) 0 mg IVPUSH Q1H PRN; Protocol PRN Reason: Withdrawal Symptoms Midazolam HCl (Versed 1 Mg/Ml) Confirm Administered Dose 2 mg .ROUTE .STK-MED ONE Stop: 03/13/19 06:49 Midazolam HCl (Versed 1 Mg/Ml) Confirm Administered Dose 2 mg .ROUTE .STK-MED ONE Stop: 03/13/19 07:31 Midazolam HCl (Versed 1 Mg/Ml) Confirm Administered Dose 2 mg .ROUTE .STK-MED ONE Stop: 03/13/19 07:33 Midazolam HCl (Versed 1 Mg/Ml) Confirm Administered Dose 2 mg .ROUTE .STK-MED ONE Stop: 03/13/19 07:41 Midazolam HCl (Versed 1 Mg/Ml) Confirm Administered Dose 2 mg .ROUTE .STK-MED ONE Stop: 03/13/19 08:40 Midazolam HCl (Versed 1 Mg/Ml) Confirm Administered Dose 2 mg .ROUTE .STK-MED ONE Stop: 03/13/19 08:40 Non-Formulary Medication (Multivitamin [Multivitamins]) 1 tab PO DAILY [facility] Propofol (Diprivan 20 Ml) Confirm Administered Dose 200 mg .ROUTE .STK-MED ONE Stop: 03/13/19 06:49 Ropivacaine (Naropin 0.5%) Confirm Administered Dose 30 ml .ROUTE .STK-MED ONE Stop: 03/13/19 07:46 Tranexamic Acid (Cyklokapron) Confirm Administered Dose 1,000 mg .ROUTE .STK- MED ONE Stop: 03/13/19 06:36 Last Admin: 03/13/19 08:10 Dose: 1,000 mg Vancomycin HCl (Vancomycin) Confirm Administered Dose 1 gm .ROUTE .STK-MED ONE Stop: 03/13/19 06:36 Last Admin: 03/13/19 08:10 Dose: 1 gm - Exam Quality Assessment: DVT Prophylaxis. No: Supplemental Oxygen General: Alert, Oriented (moments of confusion but reorientates quickly ), Cooperative, No Acute Distress HEENT: Pupils Equal, Pupils Reactive, EOMI, Mucous Membr. Moist/[place] Neck: Supple, Trachea Midline Lungs: Clear to Auscultation, Normal Respiratory Effort Cardiovascular: Regular Rate, Regular Rhythm GI/Abdominal Exam: Normal Bowel Sounds, Soft, Non-Tender, No Distention, No Abnormal Bruit (Male) Exam: Deferred Back Exam: Normal Inspection, Full Range of Motion Extremities: No Pedal Edema, Normal Capillary Refill, Leg Pain, Limited Range of Motion, Other (Bandage in place on left leg. Cooling pack in place ) Peripheral Pulses: 2+: Radial (L), Radial (R), Dorsalis Pedis (L), Dorsalis Pedis (R) Skin: Warm, Dry, Intact Wound/Incisions: Dressing Dry and Intact, No Drainage Neurological: No New Focal Deficit Psy/Mental Status: Alert, Normal Affect, Normal Mood Consult PN Assessment/Plan POD#: 2 Procedures: Procedures AIRWAY INHALATION TREATMENT (07/17/15) ASSAY OF BLOOD/URIC ACID (01/14/19) ASSAY OF DIGOXIN TOTAL (07/17/15) ASSAY OF MAGNESIUM (01/14/19) ASSAY OF NATRIURETIC PEPTIDE (01/14/19) ASSAY OF TROPONIN QUANT (07/17/15) ASSAY THYROID STIM HORMONE (12/17/18) BL SMEAR W/DIFF WBC COUNT (01/14/19) BLOOD TYPING SEROLOGIC ABO (10/06/15) BLOOD TYPING SEROLOGIC RH(D) (10/06/15) C DIFF AMPLIFIED PROBE (12/18/18) C-REACTIVE PROTEIN (01/14/19) CARDIOVASCULAR STRESS TEST (03/02/18) CHEST X-RAY 1 VIEW FRONTAL (07/17/15) CHEST X-RAY 2VW FRONTAL&LATL (10/06/15) COMPLETE CBC AUTOMATED (01/14/19) COMPLETE CBC W/AUTO DIFF WBC (12/17/18) COMPREHEN METABOLIC PANEL (01/14/19) CREATINE MB FRACTION (07/17/15) CRYPTOSPORIDIUM AG IA (12/18/18) CT ANGIOGRAPHY CHEST (01/18/19) ELECTROCARDIOGRAM TRACING (07/17/15) EMERGENCY DEPT VISIT (12/19/18) EMERGENCY DEPT VISIT (10/30/15) EMERGENCY DEPT VISIT (10/30/15) EMERGENCY DEPT VISIT (07/17/15) EVALUATE PT USE OF INHALER (07/17/15) FIBRIN DEGRADATION QUANT (01/14/19) GAIT TRAINING THERAPY (07/17/15) GIARDIA AG IA (12/18/18) GLYCOSYLATED HEMOGLOBIN TEST (01/14/19) HT MUSCLE IMAGE SPECT MULT (03/02/18) INSERT TEMP BLADDER CATH (10/30/15) LEUKOCYTE ASSESSMENT FECAL (12/17/18) LIPID PANEL (01/14/19) METABOLIC PANEL TOTAL CA (10/06/15) OCCULT BLOOD FECES (12/17/18) OFFICE/OUTPATIENT VISIT NEW (12/17/18) OT EVALUATION (07/17/15) PROTHROMBIN TIME (10/06/15) PT EVALUATION (07/17/15) RBC ANTIBODY SCREEN (10/06/15) RBC SED RATE AUTOMATED (12/19/18) ROTAVIRUS AG IA (12/18/18) ROUTINE VENIPUNCTURE (01/14/19) SHIGA-LIKE TOXIN AG IA (12/19/18) STOOL CULTR AEROBIC BACT EA (12/19/18) THER/PROPH/DIAG INJ IV PUSH (07/17/15) THROMBOPLASTIN TIME PARTIAL (07/17/15) TTE W/DOPPLER COMPLETE (01/18/19) URINALYSIS AUTO W/SCOPE (12/19/18) US EXAM ABDOM COMPLETE (01/18/19) US URINE CAPACITY MEASURE (10/30/15) VITAMIN B-12 (01/14/19) X-RAY EXAM CHEST 2 VIEWS (01/14/19) X-RAY EXAM OF ABDOMEN (10/30/15) (1) S/P total knee arthroplasty SNOMED Code(s): 7865562128711, 697381157, 0990468156838 Code(s): Z96.659 - PRESENCE OF UNSPECIFIED ARTIFICIAL KNEE JOINT Priority: High Current Visit: Yes Qualifiers: Laterality: left Qualified Code(s): Z96.652 - Presence of left artificial knee joint (2) Osteoarthritis SNOMED Code(s): 768327888 Code(s): M19.90 - UNSPECIFIED OSTEOARTHRITIS, UNSPECIFIED SITE Priority: High Current Visit: Yes Qualifiers: Osteoarthritis location: knee Osteoarthritis type: primary Laterality: left Qualified Code(s): M17.12 - Unilateral primary osteoarthritis, left knee (3) History of aneurysm SNOMED Code(s): 684930708 Code(s): Z86.79 - PERSONAL HISTORY OF OTHER DISEASES OF THE CIRCULATORY SYSTEM Priority: Medium Current Visit: No (4) CAD (coronary artery disease) SNOMED Code(s): 92045240 Code(s): I25.10 - ATHSCL HEART DISEASE OF [place] CORONARY ARTERY W/O ANG PCTRS Priority: Medium Current Visit: No Qualifiers: Coronary Disease-Associated Artery/Lesion type: unspecified vessel or lesion type [place] vs. transplanted heart: unspecified whether [place] or transplanted heart Associated angina: angina presence unspecified Qualified Code(s): I25.10 - Atherosclerotic heart disease of [place] coronary artery without angina pectoris (5) CHF (congestive heart failure) SNOMED Code(s): 32414742 Code(s): I50.9 - HEART FAILURE, UNSPECIFIED Priority: Medium Current Visit: No Qualifiers: Heart failure type: unspecified Heart failure chronicity: unspecified Qualified Code(s): I50.9 - Heart failure, unspecified (6) COPD (chronic obstructive pulmonary disease) SNOMED Code(s): 89601614 Code(s): J44.9 - CHRONIC OBSTRUCTIVE PULMONARY DISEASE, UNSPECIFIED Priority: Medium Current Visit: No Qualifiers: COPD type: unspecified COPD Qualified Code(s): J44.9 - Chronic obstructive pulmonary disease, unspecified (7) GERD (gastroesophageal reflux disease) SNOMED Code(s): 685721029 Code(s): K21.9 - GASTRO-ESOPHAGEAL REFLUX DISEASE WITHOUT ESOPHAGITIS Priority: Low Current Visit: No Qualifiers: Esophagitis presence: esophagitis presence not specified Qualified Code(s) : K21.9 - Gastro-esophageal reflux disease without esophagitis (8) Abnormal liver function SNOMED Code(s): 50359564 Code(s): R94.5 - ABNORMAL RESULTS OF LIVER FUNCTION STUDIES Priority: Low Current Visit: No (9) BPH (benign prostatic hyperplasia) SNOMED Code(s): 434134399 Code(s): N40.0 - BENIGN PROSTATIC HYPERPLASIA WITHOUT LOWER URINRY TRACT SYMP Priority: Medium Current Visit: No Qualifiers: Lower urinary tract symptom presence: unspecified whether lower urinary tract symptoms present Qualified Code(s): N40.0 - Benign prostatic hyperplasia without lower urinary tract symptoms (10) Chronic headache SNOMED Code(s): 412468693 Code(s): R51 - HEADACHE Priority: Low Current Visit: No Qualifiers: Headache type: unspecified Intractability: not intractable Qualified Code (s): R51 - Headache (11) History of cardiac radiofrequency ablation SNOMED Code(s): 753125187, 768374276 Code(s): Z98.890 - OTHER SPECIFIED POSTPROCEDURAL STATES Priority: Low Current Visit: No Problem List Initiated/Reviewed/Updated: Yes My Orders Last 24 Hours: My Active Orders 03/14/19 09:00 Thiamine [Vitamin B-1] 100 mg PO DAILY 03/14/19 11:27 CIWAA Assessment [RC] Q4HR LORazepam [Ativan] See Protocol IVPUSH ASDIRECTED PRN 03/14/19 11:54 LORazepam [Ativan] 2 mg IVPUSH Q4H PRN 03/15/19 05:39 CBC WITH AUTO DIFF [HEME] AM CMP [COMPREHENSIVE METABOLIC PN,CMP] [CHEM] AM MAGNESIUM [CHEM] AM 03/15/19 09:00 Furosemide [Lasix] 40 mg PO DAILY 03/16/19 05:11 CBC WITH AUTO DIFF [HEME] AM CMP [COMPREHENSIVE METABOLIC PN,CMP] [CHEM] AM MAGNESIUM [CHEM] AM 03/17/19 05:11 CBC WITH AUTO DIFF [HEME] AM CMP [COMPREHENSIVE METABOLIC PN,CMP] [CHEM] AM MAGNESIUM [CHEM] AM 03/18/19 05:11 CBC WITH AUTO DIFF [HEME] AM CMP [COMPREHENSIVE METABOLIC PN,CMP] [CHEM] AM MAGNESIUM [CHEM] AM Plan: I/P: Acute: S/P right total knee arthroplasty - post-operative day 1 -DVT prophylaxis and pain management per primary care team -PT/OT -IS/RT -Monitor oxygen saturation -Titrate oxygen as needed -Home medications reviewed -Vital signs stable -Monitor labs -Pre-operative Hgb was 13.9; Now 10.4-->9.2 -Pre-operative GFR was 58; Now >60--> -Pre-operative creatinine was 1.2; Now 1.2--> -Pre-operative BUN was 16; Now 10--> -Pre-operative Bilirubin was 1.6; Now 1.5 -Pre-operative LVEF is 55-60% Osteoarthritis of right knee -Pain management per primary care team Chronic ETOH use -Reports 2-4 shots of mckenna a day -Rarely goes a day without drinking -Last drink reported to be on 03/11 - only had 1oz of mckenna -CIWAA protocol as directed -Have been 0 thus far -Consider discontinuing if no signs of detox -Ativan for abortive seizures -Add Thiamine -Home folic acid and MV -Monitor for worsening CIWAAs/Symptoms -Post-operative LFTs are grossly normal; Bilirubin as above Chronic: HF with preserved EF 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 His PCP is Dr. Medley Thank you for allowing us to participate in the care of this patient!! LOS >96 Hrs anticipated pending placement. Due to weekend anticipated discharge is 03/18/19. This is subject to change if patient improves.
[2019-03-15] MEDS: Multivitamins with Minerals/Folic Acid/Lutein/Zeaxanth Tab PO SCH (08:18)
[2019-03-15] MEDS: Docusate Sodium 100 MG Cap PO SCH ×2 (08:18→22:07)
[2019-03-15] MEDS: Calcium Carbonate/Vitamin D3 600 MG-200 Units Tab PO SCH ×2 (08:18→22:07)
[2019-03-15] MEDS: Furosemide 40 MG Tab PO SCH (08:19)
[2019-03-15] MEDS: Tamsulosin 0.4 MG Cap.ER PO SCH ×2 (08:19→22:08)
[2019-03-15] MEDS: Folic Acid 1 MG Tab PO SCH (08:19)
[2019-03-15] MEDS: Aspirin 325 MG Tab.EC PO SCH ×2 (08:20→22:08)
[2019-03-15] MEDS: Thiamine 100 MG Tab PO SCH (08:20)
[2019-03-15] MEDS: Metoprolol Succinate 25 MG Tab.ER PO SCH (08:20)
[2019-03-15] MEDS: Famotidine 20 MG Tab PO SCH (10:55)
[2019-03-15] MEDS ORDERED: Magnesium Hydroxide 400 MG/5 ML Susp 30 ML Cup PO ONE (17:00)
[2019-03-16] MEDS: Docusate Sodium 100 MG Cap PO SCH ×2 (08:59→21:14)
[2019-03-16] MEDS: Acetaminophen/oxyCODONE 325-5 MG Tab PO PRN ×2 (09:00→21:15)
[2019-03-16] MEDS: Aspirin 325 MG Tab.EC PO SCH ×2 (09:01→21:15)
[2019-03-16] MEDS: Furosemide 40 MG Tab PO SCH (09:01)
[2019-03-16] MEDS: Multivitamins with Minerals/Folic Acid/Lutein/Zeaxanth Tab PO SCH (09:01)
[2019-03-16] MEDS: Folic Acid 1 MG Tab PO SCH (09:02)
[2019-03-16] MEDS: Metoprolol Succinate 25 MG Tab.ER PO SCH (09:02)
[2019-03-16] MEDS: Famotidine 20 MG Tab PO SCH (09:02)
[2019-03-16] MEDS: Tamsulosin 0.4 MG Cap.ER PO SCH ×2 (09:02→21:13)
[2019-03-16] MEDS: Thiamine 100 MG Tab PO SCH (09:03)
[2019-03-16] MEDS: Calcium Carbonate/Vitamin D3 600 MG-200 Units Tab PO SCH ×2 (09:04→21:13)
--- NOTE | 2019-03-16 11:19 | PCM.SURGPN ---
- General Info Date of Service: 03/15/19 POD#: 2 Functional Status: Reports: Pain Controlled, Tolerating Diet, Ambulating, Urinating, Incentive Spirometry (The pt has been stable from the medical standpoint. He has been progressing with therapies.) - Patient Data Vitals - Most Recent: Last Vital Signs Temp 98.4 F 03/16/19 08:18 Pulse 73 03/16/19 09:02 Resp 12 03/16/19 08:18 BP 100/73 03/16/19 09:02 Pulse Ox 93 L 03/16/19 08:18 Weight - Most Recent: 239 lb 11.2 oz I&O - Last 24 Hours: Intake & Output 03/15/19 03/16/19 03/16/19 22:59 06:59 14:59 Intake Total 960 460 300 Output Total 850 800 Balance 110 -340 300 Lab Results Last 24 Hrs: Laboratory Results - last 24 hr 03/15/19 03/16/19 03/16/19 Range/Units 18:00 04:20 04:20 WBC 7.13 (4.23-9.07) K/mm3 RBC 2.75 L (4.63-6.08) M/mm3 Hgb 9.2 L 9.0 L (13.7-17.5) gm/L Hct 30.3 L 29.3 L (40.1-51.0) % MCV 106.5 H (79.0-92.2) fl MCH 32.7 H (25.7-32.2) pg MCHC 30.7 L (32.2-35.5) g/dl RDW Std Deviation 53.6 H (35.1-43.9) fL Plt Count 144 L (163-337) K/mm3 MPV 9.9 (9.4-12.3) fl Neut % (Auto) 64.7 (34.0-67.9) % Lymph % (Auto) 19.9 L (21.8-53.1) % Granite % (Auto) 13.3 H (5.3-12.2) % Eos % (Auto) 1.7 (0.8-7.0) Baso % (Auto) 0.1 (0.1-1.2) % Neut # (Auto) 4.61 (1.78-5.38) K/mm3 Lymph # (Auto) 1.42 (1.32-3.57) K/mm3 Granite # (Auto) 0.95 H (0.30-0.82) K/mm3 Eos # (Auto) 0.12 (0.04-0.54) K/mm3 Baso # (Auto) 0.01 (0.01-0.08) K/mm3 Manual Slide Review Normal smear Sodium 138 (136-145) mEq/L Potassium 4.0 (3.5-5.1) mEq/L Chloride 103 (98-107) mEq/L Carbon Dioxide 30 (21-32) mEq/L Anion Gap 9.0 (5-15) BUN 13 (7-18) mg/dL Creatinine 0.9 (0.7-1.3) mg/dL Est Cr Clr Drug Dosing 68.72 mL/min Estimated GFR (MDRD) > 60 (>60) mL/min BUN/Creatinine Ratio 14.4 (14-18) Glucose 110 (83-115) mg/dL Calcium 9.2 (8.5-10.1) mg/dL Magnesium 1.8 (1.8-2.4) mg/dl Total Bilirubin 0.9 (0.2-1.0) mg/dL AST 26 (15-37) U/L ALT 16 (16-63) U/L Alkaline Phosphatase 84 (46-116) U/L Total Protein 6.4 (6.4-8.2) g/dl Albumin 2.5 L (3.4-5.0) g/dl Globulin 3.9 gm/dL Albumin/Globulin Ratio 0.6 L (1-2) Med Orders - Current: Current Medications Aspirin (Ecotrin) 325 mg PO BID [facility] Last Admin: 03/16/19 09:01 Dose: 325 mg Bisacodyl (Dulcolax) 5 mg PO DAILY PRN PRN Reason: Constipation Last Admin: 03/15/19 10:56 Dose: 5 mg Calcium Carbonate (Calcium Carbonate/Vitamin D 600 Mg-200 Unit) 1 tab PO BID [facility] Last Admin: 03/16/19 09:04 Dose: 1 tab Cyclobenzaprine HCl (Flexeril) 10 mg PO BID PRN PRN Reason: Spasms Last Admin: 03/14/19 16:09 Dose: 10 mg Dicyclomine HCl (Bentyl) 20 mg PO Q48H PRN PRN Reason: Abdominal cramps/diarrhea Docusate Sodium (Colace) 100 mg PO BID [facility] Last Admin: 03/16/19 08:59 Dose: 100 mg Famotidine (Pepcid) 20 mg PO DAILY [facility] Last Admin: 03/16/19 09:02 Dose: 20 mg Folic Acid (Folic Acid) 1 mg PO DAILY [facility] Last Admin: 03/16/19 09:02 Dose: 1 mg Furosemide (Lasix) 40 mg PO DAILY [facility] Last Admin: 03/16/19 09:01 Dose: 40 mg Lorazepam (Ativan) 0 mg IVPUSH ASDIRECTED PRN; Protocol PRN Reason: Withdrawal Symptoms Lorazepam (Ativan) 2 mg IVPUSH Q4H PRN PRN Reason: Seizures Metoprolol Succinate (Toprol Xl) 25 mg PO DAILY [facility] Last Admin: 03/16/19 09:02 Dose: 25 mg Morphine Sulfate (Morphine) 2 mg IVPUSH Q2H PRN PRN Reason: Breakthrough Pain Last Admin: 03/14/19 11:14 Dose: 2 mg Naloxone HCl (Narcan) 0.1 mg IVPUSH Q5M PRN PRN Reason: Oversedation Ondansetron HCl (Zofran) 4 mg IVPUSH Q6H PRN PRN Reason: Nausea/Vomiting Oxycodone/Acetaminophen (Percocet 325-5 Mg) 1 - 2 tab PO Q4H PRN PRN Reason: Pain Last Admin: 03/16/19 09:00 Dose: 2 tab Senna (Senna) 8.6 mg PO BID PRN PRN Reason: Constipation Last Admin: 03/14/19 21:03 Dose: 8.6 mg Sodium Chloride (Saline Flush) 10 ml FLUSH ASDIRECTED PRN PRN Reason: Keep Vein Open Tamsulosin HCl (Flomax) 0.4 mg PO BID [facility] Last Admin: 03/16/19 09:02 Dose: 0.4 mg Thiamine HCl (Vitamin B-1) 100 mg PO DAILY [facility] Last Admin: 03/16/19 09:03 Dose: 100 mg Vit A/Vit C/Vit E/Selen/Cu/Zn/Lutei (Icaps Mv) 1 tab PO DAILY [facility] Last Admin: 03/16/19 09:01 Dose: 1 tab Discontinued Medications Bupivacaine HCl (Marcaine 0.25%) Confirm Administered Dose 30 ml .ROUTE .STK- MED ONE Stop: 03/13/19 06:36 Last Admin: 03/13/19 08:30 Dose: 30 ml Bupivacaine HCl (Sensorcaine-Mpf 0.75%) Confirm Administered Dose 30 ml .ROUTE .STK-MED ONE Stop: 03/13/19 07:19 Cefazolin Sodium (Ancef) Confirm Administered Dose 2 gm .ROUTE .STK-MED ONE Stop: 03/13/19 06:36 Last Admin: 03/13/19 08:28 Dose: 2 gm Cefazolin Sodium (Ancef) Confirm Administered Dose 1 gm .ROUTE .STK-MED ONE Stop: 03/13/19 06:52 Cefazolin Sodium (Ancef) Confirm Administered Dose 1 gm .ROUTE .STK-MED ONE Stop: 03/13/19 06:52 Morphine Sulfate 8 mg/Epinephrine HCl 0.3 mg/Cefuroxime Sodium 750 mg/Sodium Chloride 27.9 ml 0 mg .XX ONETIME ONE Stop: 03/13/19 07:16 Last Admin: 03/13/19 08:30 Dose: 758.3 mg Diphenhydramine HCl (Benadryl) 25 mg PO ONETIME ONE Stop: 03/13/19 12:04 Last Admin: 03/13/19 12:23 Dose: 25 mg Epinephrine HCl (Adrenalin) Confirm Administered Dose 1 mg .ROUTE .STK-MED ONE Stop: 03/13/19 07:46 Fentanyl (Sublimaze) Confirm Administered Dose 100 mcg .ROUTE .STK-MED ONE Stop: 03/13/19 06:49 Lactated Ringer's (Ringers, Lactated) 1,000 mls @ 125 mls/hr IV ASDIRECTED [facility] Last Admin: 03/13/19 06:46 Dose: 125 mls/hr Cefazolin Sodium/Dextrose 2 gm (/ Premix) 50 mls @ 100 mls/hr IV Q8H [facility] Stop: 03/14/19 07:29 Last Admin: 03/14/19 06:17 Dose: 100 mls/hr Lactated Ringer's (Ringers, Lactated) Confirm Administered Dose 1,000 mls @ as directed .ROUTE .STK-MED ONE Stop: 03/13/19 07:54 Iodine (Iodine 2% Mild Tincture) Confirm Administered Dose 30 ml .ROUTE .STK- MED ONE Stop: 03/13/19 06:36 Last Admin: 03/13/19 08:26 Dose: 18 ml Lidocaine/Sodium Bicarbonate (Buffered Lidocaine 1% In Ns 8.4%) 0.25 ml IDERM ONETIME PRN PRN Reason: Prior to IV Start Last Admin: 03/13/19 06:45 Dose: 0.25 ml Lorazepam (Ativan) 0 mg IVPUSH Q1H PRN; Protocol PRN Reason: Withdrawal Symptoms Magnesium Hydroxide (Milk Of Magnesia) 30 ml PO ONETIME ONE Stop: 03/15/19 17:01 Last Admin: 03/15/19 18:23 Dose: 30 ml Midazolam HCl (Versed 1 Mg/Ml) Confirm Administered Dose 2 mg .ROUTE .STK-MED ONE Stop: 03/13/19 06:49 Midazolam HCl (Versed 1 Mg/Ml) Confirm Administered Dose 2 mg .ROUTE .STK-MED ONE Stop: 03/13/19 07:31 Midazolam HCl (Versed 1 Mg/Ml) Confirm Administered Dose 2 mg .ROUTE .STK-MED ONE Stop: 03/13/19 07:33 Midazolam HCl (Versed 1 Mg/Ml) Confirm Administered Dose 2 mg .ROUTE .STK-MED ONE Stop: 03/13/19 07:41 Midazolam HCl (Versed 1 Mg/Ml) Confirm Administered Dose 2 mg .ROUTE .STK-MED ONE Stop: 03/13/19 08:40 Midazolam HCl (Versed 1 Mg/Ml) Confirm Administered Dose 2 mg .ROUTE .STK-MED ONE Stop: 03/13/19 08:40 Non-Formulary Medication (Multivitamin [Multivitamins]) 1 tab PO DAILY [facility] Propofol (Diprivan 20 Ml) Confirm Administered Dose 200 mg .ROUTE .STK-MED ONE Stop: 03/13/19 06:49 Ropivacaine (Naropin 0.5%) Confirm Administered Dose 30 ml .ROUTE .STK-MED ONE Stop: 03/13/19 07:46 Tranexamic Acid (Cyklokapron) Confirm Administered Dose 1,000 mg .ROUTE .STK- MED ONE Stop: 03/13/19 06:36 Last Admin: 03/13/19 08:42 Dose: 1,000 mg Vancomycin HCl (Vancomycin) Confirm Administered Dose 1 gm .ROUTE .STK-MED ONE Stop: 03/13/19 06:36 Last Admin: 03/13/19 08:35 Dose: 1 gm - Exam Wound/Incisions: Dressing Dry and Intact General: Alert, Cooperative, No Acute Distress Lungs: Normal Respiratory Effort Extremities: Other (NVS intact for RLE. 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 [CONS] Cons 03/15/19 10:47 Active Routine CBC WITH AUTO DIFF [HEME] AM Lab 03/17/19 05:11 Ordered CBC WITH AUTO DIFF [HEME] AM Lab 03/18/19 05:11 Ordered CMP [COMPREHENSIVE METABOLIC PN,CMP] [CHEM] AM Lab 03/17/19 05:11 Ordered CMP [COMPREHENSIVE METABOLIC PN,CMP] [CHEM] AM Lab 03/18/19 05:11 Ordered HEMOGLOBIN/HEMATOCRIT,HH [HEME] Routine Lab 03/17/19 07:00 Ordered MAGNESIUM [CHEM] AM Lab 03/17/19 05:11 Ordered MAGNESIUM [CHEM] AM Lab 03/18/19 05:11 Ordered Medication Orders Aspirin (Ecotrin) 325 mg PO BID [facility] Last Admin: 03/16/19 09:01 Dose: 325 mg Admin: 03/15/19 22:08 Dose: 325 mg Admin: 03/15/19 08:20 Dose: 325 mg Admin: 03/14/19 21:03 Dose: 325 mg Admin: 03/14/19 08:49 Dose: 325 mg Bisacodyl (Dulcolax) 5 mg PO DAILY PRN PRN Reason: Constipation Last Admin: 03/15/19 10:56 Dose: 5 mg Calcium Carbonate (Calcium Carbonate/Vitamin D 600 Mg-200 Unit) 1 tab PO BID [facility] Last Admin: 03/16/19 09:04 Dose: 1 tab Admin: 03/15/19 22:07 Dose: 1 tab Admin: 03/15/19 08:18 Dose: 1 tab Admin: 03/14/19 21:03 Dose: 1 tab Admin: 03/14/19 08:50 Dose: 1 tab Admin: 03/13/19 20:15 Dose: 1 tab Cyclobenzaprine HCl (Flexeril) 10 mg PO BID PRN PRN Reason: Spasms Last Admin: 03/14/19 16:09 Dose: 10 mg Admin: 03/14/19 06:18 Dose: 10 mg Admin: 03/13/19 13:24 Dose: 10 mg Dicyclomine HCl (Bentyl) 20 mg PO Q48H PRN PRN Reason: Abdominal cramps/diarrhea Docusate Sodium (Colace) 100 mg PO BID [facility] Last Admin: 03/16/19 08:59 Dose: 100 mg Admin: 03/15/19 22:07 Dose: 100 mg Admin: 03/15/19 08:18 Dose: 100 mg Admin: 03/14/19 21:03 Dose: 100 mg Admin: 03/14/19 08:49 Dose: 100 mg Admin: 03/13/19 20:15 Dose: 100 mg Admin: 03/13/19 12:19 Dose: Not Given Famotidine (Pepcid) 20 mg PO DAILY [facility] Last Admin: 03/16/19 09:02 Dose: 20 mg Admin: 03/15/19 10:55 Dose: 20 mg Folic Acid (Folic Acid) 1 mg PO DAILY [facility] Last Admin: 03/16/19 09:02 Dose: 1 mg Admin: 03/15/19 08:19 Dose: 1 mg Admin: 03/14/19 08:49 Dose: 1 mg Furosemide (Lasix) 40 mg PO DAILY [facility] Last Admin: 03/16/19 09:01 Dose: 40 mg Admin: 03/15/19 08:19 Dose: 40 mg Lorazepam (Ativan) 0 mg IVPUSH ASDIRECTED PRN; Protocol PRN Reason: Withdrawal Symptoms Lorazepam (Ativan) 2 mg IVPUSH Q4H PRN PRN Reason: Seizures Metoprolol Succinate (Toprol Xl) 25 mg PO DAILY [facility] Last Admin: 03/16/19 09:02 Dose: 25 mg Admin: 03/15/19 08:20 Dose: 25 mg Admin: 03/14/19 08:49 Dose: 25 mg Morphine Sulfate (Morphine) 2 mg IVPUSH Q2H PRN PRN Reason: Breakthrough Pain Last Admin: 03/14/19 11:14 Dose: 2 mg Naloxone HCl (Narcan) 0.1 mg IVPUSH Q5M PRN PRN Reason: Oversedation Ondansetron HCl (Zofran) 4 mg IVPUSH Q6H PRN PRN Reason: Nausea/Vomiting Oxycodone/Acetaminophen (Percocet 325-5 Mg) 1 - 2 tab PO Q4H PRN PRN Reason: Pain Last Admin: 03/16/19 09:00 Dose: 2 tab Admin: 03/15/19 22:08 Dose: 2 tab Admin: 03/15/19 10:55 Dose: 1 tab Admin: 03/15/19 06:28 Dose: 2 tab Admin: 03/14/19 21:03 Dose: 2 tab Admin: 03/14/19 14:54 Dose: 2 tab Admin: 03/14/19 08:51 Dose: 1 tab Admin: 03/13/19 16:42 Dose: 2 tab Admin: 03/13/19 12:23 Dose: 2 tab Senna (Senna) 8.6 mg PO BID PRN PRN Reason: Constipation Last Admin: 03/14/19 21:03 Dose: 8.6 mg Sodium Chloride (Saline Flush) 10 ml FLUSH ASDIRECTED PRN PRN Reason: Keep Vein Open Tamsulosin HCl (Flomax) 0.4 mg PO BID [facility] Last Admin: 03/16/19 09:02 Dose: 0.4 mg Admin: 03/15/19 22:08 Dose: 0.4 mg Admin: 03/15/19 08:19 Dose: 0.4 mg Admin: 03/14/19 21:03 Dose: 0.4 mg Admin: 03/14/19 08:50 Dose: 0.4 mg Admin: 03/13/19 20:15 Dose: 0.4 mg Thiamine HCl (Vitamin B-1) 100 mg PO DAILY [facility] Last Admin: 03/16/19 09:03 Dose: 100 mg Admin: 03/15/19 08:20 Dose: 100 mg Admin: 03/14/19 08:49 Dose: 100 mg Vit A/Vit C/Vit E/Selen/Cu/Zn/Lutei (Icaps Mv) 1 tab PO DAILY [facility] Last Admin: 03/16/19 09:01 Dose: 1 tab Admin: 03/15/19 08:18 Dose: 1 tab Admin: 03/14/19 08:50 Dose: 1 tab - Assessment Assessment (Free Text/Narrative):: POD#2 - s/p right TKA - Plan Plan (Free Text/Narrative):: 1. Medical management per Hospitalist service. 2. Continue with P.T. and O.T. 3. The pt will remain in Hospital > 96 hours for continued monitoring of medical status, for therapy participation and while awaiting NH placement for continued rehab. 4. 325mg ASA PO BID, frequent mobility, TEDs. The pt's case was discussed with Dr. Guerrero.
--- NOTE | 2019-03-16 11:21 | PCM.SURGPN ---
- General Info Date of Service: 03/16/19 POD#: 3 Functional Status: Reports: Pain Controlled, Tolerating Diet, Ambulating, Urinating, Incentive Spirometry, Other (The pt states he has noted less pain. He states he was encouraged today with increased strength and mobility noted with PT.) - Patient Data Vitals - Most Recent: Last Vital Signs Temp 98.4 F 03/16/19 08:18 Pulse 73 03/16/19 09:02 Resp 12 03/16/19 08:18 BP 100/73 03/16/19 09:02 Pulse Ox 93 L 03/16/19 08:18 Weight - Most Recent: 239 lb 11.2 oz I&O - Last 24 Hours: Intake & Output 03/15/19 03/16/19 03/16/19 22:59 06:59 14:59 Intake Total 960 460 300 Output Total 850 800 Balance 110 -340 300 Lab Results Last 24 Hrs: Laboratory Results - last 24 hr 03/15/19 03/16/19 03/16/19 Range/Units 18:00 04:20 04:20 WBC 7.13 (4.23-9.07) K/mm3 RBC 2.75 L (4.63-6.08) M/mm3 Hgb 9.2 L 9.0 L (13.7-17.5) gm/L Hct 30.3 L 29.3 L (40.1-51.0) % MCV 106.5 H (79.0-92.2) fl MCH 32.7 H (25.7-32.2) pg MCHC 30.7 L (32.2-35.5) g/dl RDW Std Deviation 53.6 H (35.1-43.9) fL Plt Count 144 L (163-337) K/mm3 MPV 9.9 (9.4-12.3) fl Neut % (Auto) 64.7 (34.0-67.9) % Lymph % (Auto) 19.9 L (21.8-53.1) % [place] % (Auto) 13.3 H (5.3-12.2) % Eos % (Auto) 1.7 (0.8-7.0) Baso % (Auto) 0.1 (0.1-1.2) % Neut # (Auto) 4.61 (1.78-5.38) K/mm3 Lymph # (Auto) 1.42 (1.32-3.57) K/mm3 [place] # (Auto) 0.95 H (0.30-0.82) K/mm3 Eos # (Auto) 0.12 (0.04-0.54) K/mm3 Baso # (Auto) 0.01 (0.01-0.08) K/mm3 Manual Slide Review Normal smear Sodium 138 (136-145) mEq/L Potassium 4.0 (3.5-5.1) mEq/L Chloride 103 (98-107) mEq/L Carbon Dioxide 30 (21-32) mEq/L Anion Gap 9.0 (5-15) BUN 13 (7-18) mg/dL Creatinine 0.9 (0.7-1.3) mg/dL Est Cr Clr Drug Dosing 68.72 mL/min Estimated GFR (MDRD) > 60 (>60) mL/min BUN/Creatinine Ratio 14.4 (14-18) Glucose 110 (83-115) mg/dL Calcium 9.2 (8.5-10.1) mg/dL Magnesium 1.8 (1.8-2.4) mg/dl Total Bilirubin 0.9 (0.2-1.0) mg/dL AST 26 (15-37) U/L ALT 16 (16-63) U/L Alkaline Phosphatase 84 (46-116) U/L Total Protein 6.4 (6.4-8.2) g/dl Albumin 2.5 L (3.4-5.0) g/dl Globulin 3.9 gm/dL Albumin/Globulin Ratio 0.6 L (1-2) Med Orders - Current: Current Medications Aspirin (Ecotrin) 325 mg PO BID [facility] Last Admin: 03/16/19 09:01 Dose: 325 mg Bisacodyl (Dulcolax) 5 mg PO DAILY PRN PRN Reason: Constipation Last Admin: 03/15/19 10:56 Dose: 5 mg Calcium Carbonate (Calcium Carbonate/Vitamin D 600 Mg-200 Unit) 1 tab PO BID [facility] Last Admin: 03/16/19 09:04 Dose: 1 tab Cyclobenzaprine HCl (Flexeril) 10 mg PO BID PRN PRN Reason: Spasms Last Admin: 03/14/19 16:09 Dose: 10 mg Dicyclomine HCl (Bentyl) 20 mg PO Q48H PRN PRN Reason: Abdominal cramps/diarrhea Docusate Sodium (Colace) 100 mg PO BID [facility] Last Admin: 03/16/19 08:59 Dose: 100 mg Famotidine (Pepcid) 20 mg PO DAILY [facility] Last Admin: 03/16/19 09:02 Dose: 20 mg Folic Acid (Folic Acid) 1 mg PO DAILY [facility] Last Admin: 03/16/19 09:02 Dose: 1 mg Furosemide (Lasix) 40 mg PO DAILY [facility] Last Admin: 03/16/19 09:01 Dose: 40 mg Lorazepam (Ativan) 0 mg IVPUSH ASDIRECTED PRN; Protocol PRN Reason: Withdrawal Symptoms Lorazepam (Ativan) 2 mg IVPUSH Q4H PRN PRN Reason: Seizures Metoprolol Succinate (Toprol Xl) 25 mg PO DAILY [facility] Last Admin: 03/16/19 09:02 Dose: 25 mg Morphine Sulfate (Morphine) 2 mg IVPUSH Q2H PRN PRN Reason: Breakthrough Pain Last Admin: 03/14/19 11:14 Dose: 2 mg Naloxone HCl (Narcan) 0.1 mg IVPUSH Q5M PRN PRN Reason: Oversedation Ondansetron HCl (Zofran) 4 mg IVPUSH Q6H PRN PRN Reason: Nausea/Vomiting Oxycodone/Acetaminophen (Percocet 325-5 Mg) 1 - 2 tab PO Q4H PRN PRN Reason: Pain Last Admin: 03/16/19 09:00 Dose: 2 tab Senna (Senna) 8.6 mg PO BID PRN PRN Reason: Constipation Last Admin: 03/14/19 21:03 Dose: 8.6 mg Sodium Chloride (Saline Flush) 10 ml FLUSH ASDIRECTED PRN PRN Reason: Keep Vein Open Tamsulosin HCl (Flomax) 0.4 mg PO BID [facility] Last Admin: 03/16/19 09:02 Dose: 0.4 mg Thiamine HCl (Vitamin B-1) 100 mg PO DAILY [facility] Last Admin: 03/16/19 09:03 Dose: 100 mg Vit A/Vit C/Vit E/Selen/Cu/Zn/Lutei (Icaps Mv) 1 tab PO DAILY [facility] Last Admin: 03/16/19 09:01 Dose: 1 tab Discontinued Medications Bupivacaine HCl (Marcaine 0.25%) Confirm Administered Dose 30 ml .ROUTE .STK- MED ONE Stop: 03/13/19 06:36 Last Admin: 03/13/19 08:30 Dose: 30 ml Bupivacaine HCl (Sensorcaine-Mpf 0.75%) Confirm Administered Dose 30 ml .ROUTE .STK-MED ONE Stop: 03/13/19 07:19 Cefazolin Sodium (Ancef) Confirm Administered Dose 2 gm .ROUTE .STK-MED ONE Stop: 03/13/19 06:36 Last Admin: 03/13/19 08:28 Dose: 2 gm Cefazolin Sodium (Ancef) Confirm Administered Dose 1 gm .ROUTE .STK-MED ONE Stop: 03/13/19 06:52 Cefazolin Sodium (Ancef) Confirm Administered Dose 1 gm .ROUTE .STK-MED ONE Stop: 03/13/19 06:52 Morphine Sulfate 8 mg/Epinephrine HCl 0.3 mg/Cefuroxime Sodium 750 mg/Sodium Chloride 27.9 ml 0 mg .XX ONETIME ONE Stop: 03/13/19 07:16 Last Admin: 03/13/19 08:30 Dose: 758.3 mg Diphenhydramine HCl (Benadryl) 25 mg PO ONETIME ONE Stop: 03/13/19 12:04 Last Admin: 03/13/19 12:23 Dose: 25 mg Epinephrine HCl (Adrenalin) Confirm Administered Dose 1 mg .ROUTE .STK-MED ONE Stop: 03/13/19 07:46 Fentanyl (Sublimaze) Confirm Administered Dose 100 mcg .ROUTE .STK-MED ONE Stop: 03/13/19 06:49 Lactated Ringer's (Ringers, Lactated) 1,000 mls @ 125 mls/hr IV ASDIRECTED [facility] Last Admin: 03/13/19 06:46 Dose: 125 mls/hr Cefazolin Sodium/Dextrose 2 gm (/ Premix) 50 mls @ 100 mls/hr IV Q8H [facility] Stop: 03/14/19 07:29 Last Admin: 03/14/19 06:17 Dose: 100 mls/hr Lactated Ringer's (Ringers, Lactated) Confirm Administered Dose 1,000 mls @ as directed .ROUTE .STK-MED ONE Stop: 03/13/19 07:54 Iodine (Iodine 2% Mild Tincture) Confirm Administered Dose 30 ml .ROUTE .STK- MED ONE Stop: 03/13/19 06:36 Last Admin: 03/13/19 08:26 Dose: 18 ml Lidocaine/Sodium Bicarbonate (Buffered Lidocaine 1% In Ns 8.4%) 0.25 ml IDERM ONETIME PRN PRN Reason: Prior to IV Start Last Admin: 03/13/19 06:45 Dose: 0.25 ml Lorazepam (Ativan) 0 mg IVPUSH Q1H PRN; Protocol PRN Reason: Withdrawal Symptoms Magnesium Hydroxide (Milk Of Magnesia) 30 ml PO ONETIME ONE Stop: 03/15/19 17:01 Last Admin: 03/15/19 18:23 Dose: 30 ml Midazolam HCl (Versed 1 Mg/Ml) Confirm Administered Dose 2 mg .ROUTE .STK-MED ONE Stop: 03/13/19 06:49 Midazolam HCl (Versed 1 Mg/Ml) Confirm Administered Dose 2 mg .ROUTE .STK-MED ONE Stop: 03/13/19 07:31 Midazolam HCl (Versed 1 Mg/Ml) Confirm Administered Dose 2 mg .ROUTE .STK-MED ONE Stop: 03/13/19 07:33 Midazolam HCl (Versed 1 Mg/Ml) Confirm Administered Dose 2 mg .ROUTE .STK-MED ONE Stop: 03/13/19 07:41 Midazolam HCl (Versed 1 Mg/Ml) Confirm Administered Dose 2 mg .ROUTE .STK-MED ONE Stop: 03/13/19 08:40 Midazolam HCl (Versed 1 Mg/Ml) Confirm Administered Dose 2 mg .ROUTE .STK-MED ONE Stop: 03/13/19 08:40 Non-Formulary Medication (Multivitamin [Multivitamins]) 1 tab PO DAILY [facility] Propofol (Diprivan 20 Ml) Confirm Administered Dose 200 mg .ROUTE .STK-MED ONE Stop: 03/13/19 06:49 Ropivacaine (Naropin 0.5%) Confirm Administered Dose 30 ml .ROUTE .STK-MED ONE Stop: 03/13/19 07:46 Tranexamic Acid (Cyklokapron) Confirm Administered Dose 1,000 mg .ROUTE .STK- MED ONE Stop: 03/13/19 06:36 Last Admin: 03/13/19 08:42 Dose: 1,000 mg Vancomycin HCl (Vancomycin) Confirm Administered Dose 1 gm .ROUTE .STK-MED ONE Stop: 03/13/19 06:36 Last Admin: 03/13/19 08:35 Dose: 1 gm - Exam Wound/Incisions: Dressing Dry and Intact General: Alert, Cooperative, No Acute Distress Lungs: Normal Respiratory Effort Extremities: Other (NVS intact for RLE. Verena's negative. 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 [CONS] Cons 03/15/19 10:47 Active Routine CBC WITH AUTO DIFF [HEME] AM Lab 03/17/19 05:11 Ordered CBC WITH AUTO DIFF [HEME] AM Lab 03/18/19 05:11 Ordered CMP [COMPREHENSIVE METABOLIC PN,CMP] [CHEM] AM Lab 03/17/19 05:11 Ordered CMP [COMPREHENSIVE METABOLIC PN,CMP] [CHEM] AM Lab 03/18/19 05:11 Ordered HEMOGLOBIN/HEMATOCRIT,HH [HEME] Routine Lab 03/17/19 07:00 Ordered MAGNESIUM [CHEM] AM Lab 03/17/19 05:11 Ordered MAGNESIUM [CHEM] AM Lab 03/18/19 05:11 Ordered Medication Orders Aspirin (Ecotrin) 325 mg PO BID [facility] Last Admin: 03/16/19 09:01 Dose: 325 mg Admin: 03/15/19 22:08 Dose: 325 mg Admin: 03/15/19 08:20 Dose: 325 mg Admin: 03/14/19 21:03 Dose: 325 mg Admin: 03/14/19 08:49 Dose: 325 mg Bisacodyl (Dulcolax) 5 mg PO DAILY PRN PRN Reason: Constipation Last Admin: 03/15/19 10:56 Dose: 5 mg Calcium Carbonate (Calcium Carbonate/Vitamin D 600 Mg-200 Unit) 1 tab PO BID [facility] Last Admin: 03/16/19 09:04 Dose: 1 tab Admin: 03/15/19 22:07 Dose: 1 tab Admin: 03/15/19 08:18 Dose: 1 tab Admin: 03/14/19 21:03 Dose: 1 tab Admin: 03/14/19 08:50 Dose: 1 tab Admin: 03/13/19 20:15 Dose: 1 tab Cyclobenzaprine HCl (Flexeril) 10 mg PO BID PRN PRN Reason: Spasms Last Admin: 03/14/19 16:09 Dose: 10 mg Admin: 03/14/19 06:18 Dose: 10 mg Admin: 03/13/19 13:24 Dose: 10 mg Dicyclomine HCl (Bentyl) 20 mg PO Q48H PRN PRN Reason: Abdominal cramps/diarrhea Docusate Sodium (Colace) 100 mg PO BID [facility] Last Admin: 03/16/19 08:59 Dose: 100 mg Admin: 03/15/19 22:07 Dose: 100 mg Admin: 03/15/19 08:18 Dose: 100 mg Admin: 03/14/19 21:03 Dose: 100 mg Admin: 03/14/19 08:49 Dose: 100 mg Admin: 03/13/19 20:15 Dose: 100 mg Admin: 03/13/19 12:19 Dose: Not Given Famotidine (Pepcid) 20 mg PO DAILY [facility] Last Admin: 03/16/19 09:02 Dose: 20 mg Admin: 03/15/19 10:55 Dose: 20 mg Folic Acid (Folic Acid) 1 mg PO DAILY [facility] Last Admin: 03/16/19 09:02 Dose: 1 mg Admin: 03/15/19 08:19 Dose: 1 mg Admin: 03/14/19 08:49 Dose: 1 mg Furosemide (Lasix) 40 mg PO DAILY [facility] Last Admin: 03/16/19 09:01 Dose: 40 mg Admin: 03/15/19 08:19 Dose: 40 mg Lorazepam (Ativan) 0 mg IVPUSH ASDIRECTED PRN; Protocol PRN Reason: Withdrawal Symptoms Lorazepam (Ativan) 2 mg IVPUSH Q4H PRN PRN Reason: Seizures Metoprolol Succinate (Toprol Xl) 25 mg PO DAILY [facility] Last Admin: 03/16/19 09:02 Dose: 25 mg Admin: 03/15/19 08:20 Dose: 25 mg Admin: 03/14/19 08:49 Dose: 25 mg Morphine Sulfate (Morphine) 2 mg IVPUSH Q2H PRN PRN Reason: Breakthrough Pain Last Admin: 03/14/19 11:14 Dose: 2 mg Naloxone HCl (Narcan) 0.1 mg IVPUSH Q5M PRN PRN Reason: Oversedation Ondansetron HCl (Zofran) 4 mg IVPUSH Q6H PRN PRN Reason: Nausea/Vomiting Oxycodone/Acetaminophen (Percocet 325-5 Mg) 1 - 2 tab PO Q4H PRN PRN Reason: Pain Last Admin: 03/16/19 09:00 Dose: 2 tab Admin: 03/15/19 22:08 Dose: 2 tab Admin: 03/15/19 10:55 Dose: 1 tab Admin: 03/15/19 06:28 Dose: 2 tab Admin: 03/14/19 21:03 Dose: 2 tab Admin: 03/14/19 14:54 Dose: 2 tab Admin: 03/14/19 08:51 Dose: 1 tab Admin: 03/13/19 16:42 Dose: 2 tab Admin: 03/13/19 12:23 Dose: 2 tab Senna (Senna) 8.6 mg PO BID PRN PRN Reason: Constipation Last Admin: 03/14/19 21:03 Dose: 8.6 mg Sodium Chloride (Saline Flush) 10 ml FLUSH ASDIRECTED PRN PRN Reason: Keep Vein Open Tamsulosin HCl (Flomax) 0.4 mg PO BID [facility] Last Admin: 03/16/19 09:02 Dose: 0.4 mg Admin: 03/15/19 22:08 Dose: 0.4 mg Admin: 03/15/19 08:19 Dose: 0.4 mg Admin: 03/14/19 21:03 Dose: 0.4 mg Admin: 03/14/19 08:50 Dose: 0.4 mg Admin: 03/13/19 20:15 Dose: 0.4 mg Thiamine HCl (Vitamin B-1) 100 mg PO DAILY [facility] Last Admin: 03/16/19 09:03 Dose: 100 mg Admin: 03/15/19 08:20 Dose: 100 mg Admin: 03/14/19 08:49 Dose: 100 mg Vit A/Vit C/Vit E/Selen/Cu/Zn/Lutei (Icaps Mv) 1 tab PO DAILY [facility] Last Admin: 03/16/19 09:01 Dose: 1 tab Admin: 03/15/19 08:18 Dose: 1 tab Admin: 03/14/19 08:50 Dose: 1 tab - Assessment Assessment (Free Text/Narrative):: POD#3 - s/p right TKA - Plan Plan (Free Text/Narrative):: 1. Continue with P.T. and O.T. 2. Medical management per Hospitalist service. The pt has been stable medically. 3. Discharge to [facility] for continued rehab on 03-18-2019. The pt's case has been discussed with Dr. Guerrero.
--- NOTE | 2019-03-16 14:23 | PCM.CONSN ---
- General Info Date of Service: 03/16/19 Subjective Update: patient is doing well with no complaints. Functional Status: Reports: Pain Controlled - Review of Systems General: Reports: No Symptoms HEENT: Reports: No Symptoms Pulmonary: Reports: No Symptoms Cardiovascular: Reports: No Symptoms Gastrointestinal: Reports: No Symptoms - Patient Data Vitals - Most Recent: Last Vital Signs Temp 97.3 F 03/16/19 13:22 Pulse 70 03/16/19 13:22 Resp 18 03/16/19 13:22 BP 107/69 03/16/19 13:22 Pulse Ox 95 03/16/19 13:22 Weight - Most Recent: 239 lb 11.2 oz I&O - Last 24 Hours: Intake & Output 03/15/19 03/16/19 03/16/19 22:59 06:59 14:59 Intake Total 960 460 300 Output Total 850 800 Balance 110 -340 300 Lab Results Last 24 Hours: Laboratory Results - last 24 hr 03/15/19 03/16/19 03/16/19 Range/Units 18:00 04:20 04:20 WBC 7.13 (4.23-9.07) K/mm3 RBC 2.75 L (4.63-6.08) M/mm3 Hgb 9.2 L 9.0 L (13.7-17.5) gm/L Hct 30.3 L 29.3 L (40.1-51.0) % MCV 106.5 H (79.0-92.2) fl MCH 32.7 H (25.7-32.2) pg MCHC 30.7 L (32.2-35.5) g/dl RDW Std Deviation 53.6 H (35.1-43.9) fL Plt Count 144 L (163-337) K/mm3 MPV 9.9 (9.4-12.3) fl Neut % (Auto) 64.7 (34.0-67.9) % Lymph % (Auto) 19.9 L (21.8-53.1) % [place] % (Auto) 13.3 H (5.3-12.2) % Eos % (Auto) 1.7 (0.8-7.0) Baso % (Auto) 0.1 (0.1-1.2) % Neut # (Auto) 4.61 (1.78-5.38) K/mm3 Lymph # (Auto) 1.42 (1.32-3.57) K/mm3 [place] # (Auto) 0.95 H (0.30-0.82) K/mm3 Eos # (Auto) 0.12 (0.04-0.54) K/mm3 Baso # (Auto) 0.01 (0.01-0.08) K/mm3 Manual Slide Review Normal smear Sodium 138 (136-145) mEq/L Potassium 4.0 (3.5-5.1) mEq/L Chloride 103 (98-107) mEq/L Carbon Dioxide 30 (21-32) mEq/L Anion Gap 9.0 (5-15) BUN 13 (7-18) mg/dL Creatinine 0.9 (0.7-1.3) mg/dL Est Cr Clr Drug Dosing 68.72 mL/min Estimated GFR (MDRD) > 60 (>60) mL/min BUN/Creatinine Ratio 14.4 (14-18) Glucose 110 (83-115) mg/dL Calcium 9.2 (8.5-10.1) mg/dL Magnesium 1.8 (1.8-2.4) mg/dl Total Bilirubin 0.9 (0.2-1.0) mg/dL AST 26 (15-37) U/L ALT 16 (16-63) U/L Alkaline Phosphatase 84 (46-116) U/L Total Protein 6.4 (6.4-8.2) g/dl Albumin 2.5 L (3.4-5.0) g/dl Globulin 3.9 gm/dL Albumin/Globulin Ratio 0.6 L (1-2) Med Orders - Current: Current Medications Aspirin (Ecotrin) 325 mg PO BID [facility] Last Admin: 03/16/19 09:01 Dose: 325 mg Bisacodyl (Dulcolax) 5 mg PO DAILY PRN PRN Reason: Constipation Last Admin: 03/15/19 10:56 Dose: 5 mg Calcium Carbonate (Calcium Carbonate/Vitamin D 600 Mg-200 Unit) 1 tab PO BID [facility] Last Admin: 03/16/19 09:04 Dose: 1 tab Cyclobenzaprine HCl (Flexeril) 10 mg PO BID PRN PRN Reason: Spasms Last Admin: 03/14/19 16:09 Dose: 10 mg Dicyclomine HCl (Bentyl) 20 mg PO Q48H PRN PRN Reason: Abdominal cramps/diarrhea Docusate Sodium (Colace) 100 mg PO BID [facility] Last Admin: 03/16/19 08:59 Dose: 100 mg Famotidine (Pepcid) 20 mg PO DAILY [facility] Last Admin: 03/16/19 09:02 Dose: 20 mg Folic Acid (Folic Acid) 1 mg PO DAILY [facility] Last Admin: 03/16/19 09:02 Dose: 1 mg Furosemide (Lasix) 40 mg PO DAILY [facility] Last Admin: 03/16/19 09:01 Dose: 40 mg Lorazepam (Ativan) 0 mg IVPUSH ASDIRECTED PRN; Protocol PRN Reason: Withdrawal Symptoms Lorazepam (Ativan) 2 mg IVPUSH Q4H PRN PRN Reason: Seizures Metoprolol Succinate (Toprol Xl) 25 mg PO DAILY [facility] Last Admin: 03/16/19 09:02 Dose: 25 mg Morphine Sulfate (Morphine) 2 mg IVPUSH Q2H PRN PRN Reason: Breakthrough Pain Last Admin: 03/14/19 11:14 Dose: 2 mg Naloxone HCl (Narcan) 0.1 mg IVPUSH Q5M PRN PRN Reason: Oversedation Ondansetron HCl (Zofran) 4 mg IVPUSH Q6H PRN PRN Reason: Nausea/Vomiting Oxycodone/Acetaminophen (Percocet 325-5 Mg) 1 - 2 tab PO Q4H PRN PRN Reason: Pain Last Admin: 03/16/19 09:00 Dose: 2 tab Senna (Senna) 8.6 mg PO BID PRN PRN Reason: Constipation Last Admin: 03/14/19 21:03 Dose: 8.6 mg Sodium Chloride (Saline Flush) 10 ml FLUSH ASDIRECTED PRN PRN Reason: Keep Vein Open Tamsulosin HCl (Flomax) 0.4 mg PO BID [facility] Last Admin: 03/16/19 09:02 Dose: 0.4 mg Thiamine HCl (Vitamin B-1) 100 mg PO DAILY [facility] Last Admin: 03/16/19 09:03 Dose: 100 mg Vit A/Vit C/Vit E/Selen/Cu/Zn/Lutei (Icaps Mv) 1 tab PO DAILY [facility] Last Admin: 03/16/19 09:01 Dose: 1 tab Discontinued Medications Bupivacaine HCl (Marcaine 0.25%) Confirm Administered Dose 30 ml .ROUTE .STK- MED ONE Stop: 03/13/19 06:36 Last Admin: 03/13/19 08:30 Dose: 30 ml Bupivacaine HCl (Sensorcaine-Mpf 0.75%) Confirm Administered Dose 30 ml .ROUTE .STK-MED ONE Stop: 03/13/19 07:19 Cefazolin Sodium (Ancef) Confirm Administered Dose 2 gm .ROUTE .STK-MED ONE Stop: 03/13/19 06:36 Last Admin: 03/13/19 08:28 Dose: 2 gm Cefazolin Sodium (Ancef) Confirm Administered Dose 1 gm .ROUTE .STK-MED ONE Stop: 03/13/19 06:52 Cefazolin Sodium (Ancef) Confirm Administered Dose 1 gm .ROUTE .STK-MED ONE Stop: 03/13/19 06:52 Morphine Sulfate 8 mg/Epinephrine HCl 0.3 mg/Cefuroxime Sodium 750 mg/Sodium Chloride 27.9 ml 0 mg .XX ONETIME ONE Stop: 03/13/19 07:16 Last Admin: 03/13/19 08:30 Dose: 758.3 mg Diphenhydramine HCl (Benadryl) 25 mg PO ONETIME ONE Stop: 03/13/19 12:04 Last Admin: 03/13/19 12:23 Dose: 25 mg Epinephrine HCl (Adrenalin) Confirm Administered Dose 1 mg .ROUTE .STK-MED ONE Stop: 03/13/19 07:46 Fentanyl (Sublimaze) Confirm Administered Dose 100 mcg .ROUTE .STK-MED ONE Stop: 03/13/19 06:49 Lactated Ringer's (Ringers, Lactated) 1,000 mls @ 125 mls/hr IV ASDIRECTED [facility] Last Admin: 03/13/19 06:46 Dose: 125 mls/hr Cefazolin Sodium/Dextrose 2 gm (/ Premix) 50 mls @ 100 mls/hr IV Q8H [facility] Stop: 03/14/19 07:29 Last Admin: 03/14/19 06:17 Dose: 100 mls/hr Lactated Ringer's (Ringers, Lactated) Confirm Administered Dose 1,000 mls @ as directed .ROUTE .STK-MED ONE Stop: 03/13/19 07:54 Iodine (Iodine 2% Mild Tincture) Confirm Administered Dose 30 ml .ROUTE .STK- MED ONE Stop: 03/13/19 06:36 Last Admin: 03/13/19 08:26 Dose: 18 ml Lidocaine/Sodium Bicarbonate (Buffered Lidocaine 1% In Ns 8.4%) 0.25 ml IDERM ONETIME PRN PRN Reason: Prior to IV Start Last Admin: 03/13/19 06:45 Dose: 0.25 ml Lorazepam (Ativan) 0 mg IVPUSH Q1H PRN; Protocol PRN Reason: Withdrawal Symptoms Magnesium Hydroxide (Milk Of Magnesia) 30 ml PO ONETIME ONE Stop: 03/15/19 17:01 Last Admin: 03/15/19 18:23 Dose: 30 ml Midazolam HCl (Versed 1 Mg/Ml) Confirm Administered Dose 2 mg .ROUTE .STK-MED ONE Stop: 03/13/19 06:49 Midazolam HCl (Versed 1 Mg/Ml) Confirm Administered Dose 2 mg .ROUTE .STK-MED ONE Stop: 03/13/19 07:31 Midazolam HCl (Versed 1 Mg/Ml) Confirm Administered Dose 2 mg .ROUTE .STK-MED ONE Stop: 03/13/19 07:33 Midazolam HCl (Versed 1 Mg/Ml) Confirm Administered Dose 2 mg .ROUTE .STK-MED ONE Stop: 03/13/19 07:41 Midazolam HCl (Versed 1 Mg/Ml) Confirm Administered Dose 2 mg .ROUTE .STK-MED ONE Stop: 03/13/19 08:40 Midazolam HCl (Versed 1 Mg/Ml) Confirm Administered Dose 2 mg .ROUTE .STK-MED ONE Stop: 03/13/19 08:40 Non-Formulary Medication (Multivitamin [Multivitamins]) 1 tab PO DAILY [facility] Propofol (Diprivan 20 Ml) Confirm Administered Dose 200 mg .ROUTE .STK-MED ONE Stop: 03/13/19 06:49 Ropivacaine (Naropin 0.5%) Confirm Administered Dose 30 ml .ROUTE .STK-MED ONE Stop: 03/13/19 07:46 Tranexamic Acid (Cyklokapron) Confirm Administered Dose 1,000 mg .ROUTE .STK- MED ONE Stop: 03/13/19 06:36 Last Admin: 03/13/19 08:42 Dose: 1,000 mg Vancomycin HCl (Vancomycin) Confirm Administered Dose 1 gm .ROUTE .STK-MED ONE Stop: 03/13/19 06:36 Last Admin: 03/13/19 08:35 Dose: 1 gm - Exam Quality Assessment: No: Supplemental Oxygen General: Alert, Oriented HEENT: Pupils Equal Neck: Supple Lungs: Clear to Auscultation, Normal Respiratory Effort Cardiovascular: Regular Rate, Regular Rhythm GI/Abdominal Exam: Normal Bowel Sounds, Soft, Non-Tender, No Organomegaly, No Distention Extremities: Limited Range of Motion Skin: Warm, Dry Neurological: No New Focal Deficit Psy/Mental Status: Alert, Normal Affect Consult PN Assessment/Plan Procedures: Procedures AIRWAY INHALATION TREATMENT (07/17/15) ASSAY OF BLOOD/URIC ACID (01/14/19) ASSAY OF DIGOXIN TOTAL (07/17/15) ASSAY OF MAGNESIUM (01/14/19) ASSAY OF NATRIURETIC PEPTIDE (01/14/19) ASSAY OF TROPONIN QUANT (07/17/15) ASSAY THYROID STIM HORMONE (12/17/18) BL SMEAR W/DIFF WBC COUNT (01/14/19) BLOOD TYPING SEROLOGIC ABO (10/06/15) BLOOD TYPING SEROLOGIC RH(D) (10/06/15) C DIFF AMPLIFIED PROBE (12/18/18) C-REACTIVE PROTEIN (01/14/19) CARDIOVASCULAR STRESS TEST (03/02/18) CHEST X-RAY 1 VIEW FRONTAL (07/17/15) CHEST X-RAY 2VW FRONTAL&LATL (10/06/15) COMPLETE CBC AUTOMATED (01/14/19) COMPLETE CBC W/AUTO DIFF WBC (12/17/18) COMPREHEN METABOLIC PANEL (01/14/19) CREATINE MB FRACTION (07/17/15) CRYPTOSPORIDIUM AG IA (12/18/18) CT ANGIOGRAPHY CHEST (01/18/19) ELECTROCARDIOGRAM TRACING (07/17/15) EMERGENCY DEPT VISIT (12/19/18) EMERGENCY DEPT VISIT (10/30/15) EMERGENCY DEPT VISIT (10/30/15) EMERGENCY DEPT VISIT (07/17/15) EVALUATE PT USE OF INHALER (07/17/15) FIBRIN DEGRADATION QUANT (01/14/19) GAIT TRAINING THERAPY (07/17/15) GIARDIA AG IA (12/18/18) GLYCOSYLATED HEMOGLOBIN TEST (01/14/19) HT MUSCLE IMAGE SPECT MULT (03/02/18) INSERT TEMP BLADDER CATH (10/30/15) LEUKOCYTE ASSESSMENT FECAL (12/17/18) LIPID PANEL (01/14/19) METABOLIC PANEL TOTAL CA (10/06/15) OCCULT BLOOD FECES (12/17/18) OFFICE/OUTPATIENT VISIT NEW (12/17/18) OT EVALUATION (07/17/15) PROTHROMBIN TIME (10/06/15) PT EVALUATION (07/17/15) RBC ANTIBODY SCREEN (10/06/15) RBC SED RATE AUTOMATED (12/19/18) ROTAVIRUS AG IA (12/18/18) ROUTINE VENIPUNCTURE (01/14/19) SHIGA-LIKE TOXIN AG IA (12/19/18) STOOL CULTR AEROBIC BACT EA (12/19/18) THER/PROPH/DIAG INJ IV PUSH (07/17/15) THROMBOPLASTIN TIME PARTIAL (07/17/15) TTE W/DOPPLER COMPLETE (01/18/19) URINALYSIS AUTO W/SCOPE (12/19/18) US EXAM ABDOM COMPLETE (01/18/19) US URINE CAPACITY MEASURE (10/30/15) VITAMIN B-12 (01/14/19) X-RAY EXAM CHEST 2 VIEWS (01/14/19) X-RAY EXAM OF ABDOMEN (10/30/15) Problem List Initiated/Reviewed/Updated: Yes My Orders Last 24 Hours: My Active Orders 03/17/19 07:00 HEMOGLOBIN/HEMATOCRIT,HH [HEME] Routine Plan: Assessment * 78-year-old male postop day 0 for right total knee arthroplasty. 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 Plan * monitor hemoglobin and vitals. * stable from medical standpoint.
[2019-03-17] MEDS: Multivitamins with Minerals/Folic Acid/Lutein/Zeaxanth Tab PO SCH (08:36)
[2019-03-17] MEDS: Aspirin 325 MG Tab.EC PO SCH ×2 (08:37→21:26)
[2019-03-17] MEDS: Calcium Carbonate/Vitamin D3 600 MG-200 Units Tab PO SCH ×2 (08:37→21:25)
[2019-03-17] MEDS: Furosemide 40 MG Tab PO SCH (08:37)
[2019-03-17] MEDS: Tamsulosin 0.4 MG Cap.ER PO SCH ×2 (08:37→21:25)
[2019-03-17] MEDS: Metoprolol Succinate 25 MG Tab.ER PO SCH (08:37)
[2019-03-17] MEDS: Docusate Sodium 100 MG Cap PO SCH ×2 (08:49→21:26)
[2019-03-17] MEDS: Thiamine 100 MG Tab PO SCH (08:50)
[2019-03-17] MEDS: Famotidine 20 MG Tab PO SCH (08:50)
[2019-03-17] MEDS: Folic Acid 1 MG Tab PO SCH (08:50)
--- NOTE | 2019-03-17 10:31 | PCM.SURGPN ---
- General Info Date of Service: 03/17/19 POD#: 4 Functional Status: Reports: Pain Controlled, Tolerating Diet, Ambulating, Urinating, Incentive Spirometry, Other (Nursing states pt was able to move about his room with stand-by assist.) - Patient Data Vitals - Most Recent: Last Vital Signs Temp 98.2 F 03/17/19 03:27 Pulse 82 03/17/19 08:37 Resp 14 03/17/19 03:27 BP 132/72 03/17/19 08:37 Pulse Ox 92 L 03/17/19 03:27 Weight - Most Recent: 240 lb 11.2 oz I&O - Last 24 Hours: Intake & Output 03/16/19 03/17/19 03/17/19 22:59 06:59 14:59 Intake Total 880 400 Output Total 700 600 Balance 180 -200 Lab Results Last 24 Hrs: Laboratory Results - last 24 hr 03/17/19 Range/Units 07:23 Hgb 8.6 L (13.7-17.5) gm/L Hct 28.0 L (40.1-51.0) % Med Orders - Current: Current Medications Aspirin (Ecotrin) 325 mg PO BID [facility] Last Admin: 03/17/19 08:37 Dose: 325 mg Bisacodyl (Dulcolax) 5 mg PO DAILY PRN PRN Reason: Constipation Last Admin: 03/15/19 10:56 Dose: 5 mg Calcium Carbonate (Calcium Carbonate/Vitamin D 600 Mg-200 Unit) 1 tab PO BID [facility] Last Admin: 03/17/19 08:37 Dose: 1 tab Cyclobenzaprine HCl (Flexeril) 10 mg PO BID PRN PRN Reason: Spasms Last Admin: 03/14/19 16:09 Dose: 10 mg Dicyclomine HCl (Bentyl) 20 mg PO Q48H PRN PRN Reason: Abdominal cramps/diarrhea Docusate Sodium (Colace) 100 mg PO BID [facility] Last Admin: 03/17/19 08:49 Dose: 100 mg Famotidine (Pepcid) 20 mg PO DAILY [facility] Last Admin: 03/17/19 08:50 Dose: 20 mg Folic Acid (Folic Acid) 1 mg PO DAILY [facility] Last Admin: 03/17/19 08:50 Dose: 1 mg Furosemide (Lasix) 40 mg PO DAILY [facility] Last Admin: 03/17/19 08:37 Dose: 40 mg Lorazepam (Ativan) 0 mg IVPUSH ASDIRECTED PRN; Protocol PRN Reason: Withdrawal Symptoms Lorazepam (Ativan) 2 mg IVPUSH Q4H PRN PRN Reason: Seizures Metoprolol Succinate (Toprol Xl) 25 mg PO DAILY [facility] Last Admin: 03/17/19 08:37 Dose: 25 mg Morphine Sulfate (Morphine) 2 mg IVPUSH Q2H PRN PRN Reason: Breakthrough Pain Last Admin: 03/14/19 11:14 Dose: 2 mg Naloxone HCl (Narcan) 0.1 mg IVPUSH Q5M PRN PRN Reason: Oversedation Ondansetron HCl (Zofran) 4 mg IVPUSH Q6H PRN PRN Reason: Nausea/Vomiting Oxycodone/Acetaminophen (Percocet 325-5 Mg) 1 - 2 tab PO Q4H PRN PRN Reason: Pain Last Admin: 03/16/19 21:15 Dose: 2 tab Senna (Senna) 8.6 mg PO BID PRN PRN Reason: Constipation Last Admin: 03/14/19 21:03 Dose: 8.6 mg Sodium Chloride (Saline Flush) 10 ml FLUSH ASDIRECTED PRN PRN Reason: Keep Vein Open Tamsulosin HCl (Flomax) 0.4 mg PO BID [facility] Last Admin: 03/17/19 08:37 Dose: 0.4 mg Thiamine HCl (Vitamin B-1) 100 mg PO DAILY [facility] Last Admin: 03/17/19 08:50 Dose: 100 mg Vit A/Vit C/Vit E/Selen/Cu/Zn/Lutei (Icaps Mv) 1 tab PO DAILY [facility] Last Admin: 03/17/19 08:36 Dose: 1 tab Discontinued Medications Bupivacaine HCl (Marcaine 0.25%) Confirm Administered Dose 30 ml .ROUTE .STK- MED ONE Stop: 03/13/19 06:36 Last Admin: 03/13/19 08:30 Dose: 30 ml Bupivacaine HCl (Sensorcaine-Mpf 0.75%) Confirm Administered Dose 30 ml .ROUTE .STK-MED ONE Stop: 03/13/19 07:19 Cefazolin Sodium (Ancef) Confirm Administered Dose 2 gm .ROUTE .STK-MED ONE Stop: 03/13/19 06:36 Last Admin: 03/13/19 08:28 Dose: 2 gm Cefazolin Sodium (Ancef) Confirm Administered Dose 1 gm .ROUTE .STK-MED ONE Stop: 03/13/19 06:52 Cefazolin Sodium (Ancef) Confirm Administered Dose 1 gm .ROUTE .STK-MED ONE Stop: 03/13/19 06:52 Morphine Sulfate 8 mg/Epinephrine HCl 0.3 mg/Cefuroxime Sodium 750 mg/Sodium Chloride 27.9 ml 0 mg .XX ONETIME ONE Stop: 03/13/19 07:16 Last Admin: 03/13/19 08:30 Dose: 758.3 mg Diphenhydramine HCl (Benadryl) 25 mg PO ONETIME ONE Stop: 03/13/19 12:04 Last Admin: 03/13/19 12:23 Dose: 25 mg Epinephrine HCl (Adrenalin) Confirm Administered Dose 1 mg .ROUTE .STK-MED ONE Stop: 03/13/19 07:46 Fentanyl (Sublimaze) Confirm Administered Dose 100 mcg .ROUTE .STK-MED ONE Stop: 03/13/19 06:49 Lactated Ringer's (Ringers, Lactated) 1,000 mls @ 125 mls/hr IV ASDIRECTED [facility] Last Admin: 03/13/19 06:46 Dose: 125 mls/hr Cefazolin Sodium/Dextrose 2 gm (/ Premix) 50 mls @ 100 mls/hr IV Q8H [facility] Stop: 03/14/19 07:29 Last Admin: 03/14/19 06:17 Dose: 100 mls/hr Lactated Ringer's (Ringers, Lactated) Confirm Administered Dose 1,000 mls @ as directed .ROUTE .STK-MED ONE Stop: 03/13/19 07:54 Iodine (Iodine 2% Mild Tincture) Confirm Administered Dose 30 ml .ROUTE .STK- MED ONE Stop: 03/13/19 06:36 Last Admin: 03/13/19 08:26 Dose: 18 ml Lidocaine/Sodium Bicarbonate (Buffered Lidocaine 1% In Ns 8.4%) 0.25 ml IDERM ONETIME PRN PRN Reason: Prior to IV Start Last Admin: 03/13/19 06:45 Dose: 0.25 ml Lorazepam (Ativan) 0 mg IVPUSH Q1H PRN; Protocol PRN Reason: Withdrawal Symptoms Magnesium Hydroxide (Milk Of Magnesia) 30 ml PO ONETIME ONE Stop: 03/15/19 17:01 Last Admin: 03/15/19 18:23 Dose: 30 ml Midazolam HCl (Versed 1 Mg/Ml) Confirm Administered Dose 2 mg .ROUTE .STK-MED ONE Stop: 03/13/19 06:49 Midazolam HCl (Versed 1 Mg/Ml) Confirm Administered Dose 2 mg .ROUTE .STK-MED ONE Stop: 03/13/19 07:31 Midazolam HCl (Versed 1 Mg/Ml) Confirm Administered Dose 2 mg .ROUTE .STK-MED ONE Stop: 03/13/19 07:33 Midazolam HCl (Versed 1 Mg/Ml) Confirm Administered Dose 2 mg .ROUTE .STK-MED ONE Stop: 03/13/19 07:41 Midazolam HCl (Versed 1 Mg/Ml) Confirm Administered Dose 2 mg .ROUTE .STK-MED ONE Stop: 03/13/19 08:40 Midazolam HCl (Versed 1 Mg/Ml) Confirm Administered Dose 2 mg .ROUTE .STK-MED ONE Stop: 03/13/19 08:40 Non-Formulary Medication (Multivitamin [Multivitamins]) 1 tab PO DAILY [facility] Propofol (Diprivan 20 Ml) Confirm Administered Dose 200 mg .ROUTE .STK-MED ONE Stop: 03/13/19 06:49 Ropivacaine (Naropin 0.5%) Confirm Administered Dose 30 ml .ROUTE .STK-MED ONE Stop: 03/13/19 07:46 Tranexamic Acid (Cyklokapron) Confirm Administered Dose 1,000 mg .ROUTE .STK- MED ONE Stop: 03/13/19 06:36 Last Admin: 03/13/19 08:42 Dose: 1,000 mg Vancomycin HCl (Vancomycin) Confirm Administered Dose 1 gm .ROUTE .STK-MED ONE Stop: 03/13/19 06:36 Last Admin: 03/13/19 08:35 Dose: 1 gm - Exam Wound/Incisions: Dressing Dry and Intact General: Alert, Cooperative, No Acute Distress Lungs: Normal Respiratory Effort Extremities: Other (NVS intact for BLE. Verena's negative. Independent SLR RLE. ) - Problem List Review Problem List Initiated/Reviewed/Updated: Yes - My Orders Last 24 Hours: Medication Orders Aspirin (Ecotrin) 325 mg PO BID [facility] Last Admin: 03/17/19 08:37 Dose: 325 mg Admin: 03/16/19 21:15 Dose: 325 mg Admin: 03/16/19 09:01 Dose: 325 mg Admin: 03/15/19 22:08 Dose: 325 mg Admin: 03/15/19 08:20 Dose: 325 mg Admin: 03/14/19 21:03 Dose: 325 mg Admin: 03/14/19 08:49 Dose: 325 mg Bisacodyl (Dulcolax) 5 mg PO DAILY PRN PRN Reason: Constipation Last Admin: 03/15/19 10:56 Dose: 5 mg Calcium Carbonate (Calcium Carbonate/Vitamin D 600 Mg-200 Unit) 1 tab PO BID [facility] Last Admin: 03/17/19 08:37 Dose: 1 tab Admin: 03/16/19 21:13 Dose: 1 tab Admin: 03/16/19 09:04 Dose: 1 tab Admin: 03/15/19 22:07 Dose: 1 tab Admin: 03/15/19 08:18 Dose: 1 tab Admin: 03/14/19 21:03 Dose: 1 tab Admin: 03/14/19 08:50 Dose: 1 tab Admin: 03/13/19 20:15 Dose: 1 tab Cyclobenzaprine HCl (Flexeril) 10 mg PO BID PRN PRN Reason: Spasms Last Admin: 03/14/19 16:09 Dose: 10 mg Admin: 03/14/19 06:18 Dose: 10 mg Admin: 03/13/19 13:24 Dose: 10 mg Dicyclomine HCl (Bentyl) 20 mg PO Q48H PRN PRN Reason: Abdominal cramps/diarrhea Docusate Sodium (Colace) 100 mg PO BID [facility] Last Admin: 03/17/19 08:49 Dose: 100 mg Admin: 03/16/19 21:14 Dose: 100 mg Admin: 03/16/19 08:59 Dose: 100 mg Admin: 03/15/19 22:07 Dose: 100 mg Admin: 03/15/19 08:18 Dose: 100 mg Admin: 03/14/19 21:03 Dose: 100 mg Admin: 03/14/19 08:49 Dose: 100 mg Admin: 03/13/19 20:15 Dose: 100 mg Admin: 03/13/19 12:19 Dose: Not Given Famotidine (Pepcid) 20 mg PO DAILY [facility] Last Admin: 03/17/19 08:50 Dose: 20 mg Admin: 03/16/19 09:02 Dose: 20 mg Admin: 03/15/19 10:55 Dose: 20 mg Folic Acid (Folic Acid) 1 mg PO DAILY [facility] Last Admin: 03/17/19 08:50 Dose: 1 mg Admin: 03/16/19 09:02 Dose: 1 mg Admin: 03/15/19 08:19 Dose: 1 mg Admin: 03/14/19 08:49 Dose: 1 mg Furosemide (Lasix) 40 mg PO DAILY [facility] Last Admin: 03/17/19 08:37 Dose: 40 mg Admin: 03/16/19 09:01 Dose: 40 mg Admin: 03/15/19 08:19 Dose: 40 mg Lorazepam (Ativan) 0 mg IVPUSH ASDIRECTED PRN; Protocol PRN Reason: Withdrawal Symptoms Lorazepam (Ativan) 2 mg IVPUSH Q4H PRN PRN Reason: Seizures Metoprolol Succinate (Toprol Xl) 25 mg PO DAILY [facility] Last Admin: 03/17/19 08:37 Dose: 25 mg Admin: 03/16/19 09:02 Dose: 25 mg Admin: 03/15/19 08:20 Dose: 25 mg Admin: 03/14/19 08:49 Dose: 25 mg Morphine Sulfate (Morphine) 2 mg IVPUSH Q2H PRN PRN Reason: Breakthrough Pain Last Admin: 03/14/19 11:14 Dose: 2 mg Naloxone HCl (Narcan) 0.1 mg IVPUSH Q5M PRN PRN Reason: Oversedation Ondansetron HCl (Zofran) 4 mg IVPUSH Q6H PRN PRN Reason: Nausea/Vomiting Oxycodone/Acetaminophen (Percocet 325-5 Mg) 1 - 2 tab PO Q4H PRN PRN Reason: Pain Last Admin: 03/16/19 21:15 Dose: 2 tab Admin: 03/16/19 09:00 Dose: 2 tab Admin: 03/15/19 22:08 Dose: 2 tab Admin: 03/15/19 10:55 Dose: 1 tab Admin: 03/15/19 06:28 Dose: 2 tab Admin: 03/14/19 21:03 Dose: 2 tab Admin: 03/14/19 14:54 Dose: 2 tab Admin: 03/14/19 08:51 Dose: 1 tab Admin: 03/13/19 16:42 Dose: 2 tab Admin: 03/13/19 12:23 Dose: 2 tab Senna (Senna) 8.6 mg PO BID PRN PRN Reason: Constipation Last Admin: 03/14/19 21:03 Dose: 8.6 mg Sodium Chloride (Saline Flush) 10 ml FLUSH ASDIRECTED PRN PRN Reason: Keep Vein Open Tamsulosin HCl (Flomax) 0.4 mg PO BID [facility] Last Admin: 03/17/19 08:37 Dose: 0.4 mg Admin: 03/16/19 21:13 Dose: 0.4 mg Admin: 03/16/19 09:02 Dose: 0.4 mg Admin: 03/15/19 22:08 Dose: 0.4 mg Admin: 03/15/19 08:19 Dose: 0.4 mg Admin: 03/14/19 21:03 Dose: 0.4 mg Admin: 03/14/19 08:50 Dose: 0.4 mg Admin: 03/13/19 20:15 Dose: 0.4 mg Thiamine HCl (Vitamin B-1) 100 mg PO DAILY [facility] Last Admin: 03/17/19 08:50 Dose: 100 mg Admin: 03/16/19 09:03 Dose: 100 mg Admin: 03/15/19 08:20 Dose: 100 mg Admin: 03/14/19 08:49 Dose: 100 mg Vit A/Vit C/Vit E/Selen/Cu/Zn/Lutei (Icaps Mv) 1 tab PO DAILY [facility] Last Admin: 03/17/19 08:36 Dose: 1 tab Admin: 03/16/19 09:01 Dose: 1 tab Admin: 03/15/19 08:18 Dose: 1 tab Admin: 03/14/19 08:50 Dose: 1 tab - Assessment Assessment (Free Text/Narrative):: POD#4 - s/p right TKA - Plan Plan (Free Text/Narrative):: 1. Continue with PT and OT. 2. Medical management per Hospitalist service. 3. The pt is progressing with therapies. 4. 325mg ASA PO BID, frequent mobility, TEDs, SCDs. The pt's case has been discussed with Dr. Guerrero.
--- NOTE | 2019-03-17 11:24 | PCM.CONSN ---
- General Info Date of Service: 03/17/19 Subjective Update: patient is doing well with no complaints. Functional Status: Denies: Pain Controlled - Review of Systems General: Reports: No Symptoms HEENT: Reports: No Symptoms Pulmonary: Reports: No Symptoms Cardiovascular: Reports: No Symptoms Gastrointestinal: Reports: No Symptoms - Patient Data Vitals - Most Recent: Last Vital Signs Temp 98.2 F 03/17/19 03:27 Pulse 82 03/17/19 08:37 Resp 14 03/17/19 03:27 BP 132/72 03/17/19 08:37 Pulse Ox 92 L 03/17/19 03:27 Weight - Most Recent: 240 lb 11.2 oz I&O - Last 24 Hours: Intake & Output 03/16/19 03/17/19 03/17/19 22:59 06:59 14:59 Intake Total 880 400 300 Output Total 700 600 Balance 180 -200 300 Lab Results Last 24 Hours: Laboratory Results - last 24 hr 03/17/19 Range/Units 07:23 Hgb 8.6 L (13.7-17.5) gm/L Hct 28.0 L (40.1-51.0) % Med Orders - Current: Current Medications Aspirin (Ecotrin) 325 mg PO BID [facility] Last Admin: 03/17/19 08:37 Dose: 325 mg Bisacodyl (Dulcolax) 5 mg PO DAILY PRN PRN Reason: Constipation Last Admin: 03/15/19 10:56 Dose: 5 mg Calcium Carbonate (Calcium Carbonate/Vitamin D 600 Mg-200 Unit) 1 tab PO BID [facility] Last Admin: 03/17/19 08:37 Dose: 1 tab Cyclobenzaprine HCl (Flexeril) 10 mg PO BID PRN PRN Reason: Spasms Last Admin: 03/14/19 16:09 Dose: 10 mg Dicyclomine HCl (Bentyl) 20 mg PO Q48H PRN PRN Reason: Abdominal cramps/diarrhea Docusate Sodium (Colace) 100 mg PO BID [facility] Last Admin: 03/17/19 08:49 Dose: 100 mg Famotidine (Pepcid) 20 mg PO DAILY [facility] Last Admin: 03/17/19 08:50 Dose: 20 mg Folic Acid (Folic Acid) 1 mg PO DAILY [facility] Last Admin: 03/17/19 08:50 Dose: 1 mg Furosemide (Lasix) 40 mg PO DAILY [facility] Last Admin: 03/17/19 08:37 Dose: 40 mg Lorazepam (Ativan) 0 mg IVPUSH ASDIRECTED PRN; Protocol PRN Reason: Withdrawal Symptoms Lorazepam (Ativan) 2 mg IVPUSH Q4H PRN PRN Reason: Seizures Metoprolol Succinate (Toprol Xl) 25 mg PO DAILY [facility] Last Admin: 03/17/19 08:37 Dose: 25 mg Morphine Sulfate (Morphine) 2 mg IVPUSH Q2H PRN PRN Reason: Breakthrough Pain Last Admin: 03/14/19 11:14 Dose: 2 mg Naloxone HCl (Narcan) 0.1 mg IVPUSH Q5M PRN PRN Reason: Oversedation Ondansetron HCl (Zofran) 4 mg IVPUSH Q6H PRN PRN Reason: Nausea/Vomiting Oxycodone/Acetaminophen (Percocet 325-5 Mg) 1 - 2 tab PO Q4H PRN PRN Reason: Pain Last Admin: 03/16/19 21:15 Dose: 2 tab Senna (Senna) 8.6 mg PO BID PRN PRN Reason: Constipation Last Admin: 03/14/19 21:03 Dose: 8.6 mg Sodium Chloride (Saline Flush) 10 ml FLUSH ASDIRECTED PRN PRN Reason: Keep Vein Open Tamsulosin HCl (Flomax) 0.4 mg PO BID [facility] Last Admin: 03/17/19 08:37 Dose: 0.4 mg Thiamine HCl (Vitamin B-1) 100 mg PO DAILY [facility] Last Admin: 03/17/19 08:50 Dose: 100 mg Vit A/Vit C/Vit E/Selen/Cu/Zn/Lutei (Icaps Mv) 1 tab PO DAILY [facility] Last Admin: 03/17/19 08:36 Dose: 1 tab Discontinued Medications Bupivacaine HCl (Marcaine 0.25%) Confirm Administered Dose 30 ml .ROUTE .STK- MED ONE Stop: 03/13/19 06:36 Last Admin: 03/13/19 08:30 Dose: 30 ml Bupivacaine HCl (Sensorcaine-Mpf 0.75%) Confirm Administered Dose 30 ml .ROUTE .STK-MED ONE Stop: 03/13/19 07:19 Cefazolin Sodium (Ancef) Confirm Administered Dose 2 gm .ROUTE .STK-MED ONE Stop: 03/13/19 06:36 Last Admin: 03/13/19 08:28 Dose: 2 gm Cefazolin Sodium (Ancef) Confirm Administered Dose 1 gm .ROUTE .STK-MED ONE Stop: 03/13/19 06:52 Cefazolin Sodium (Ancef) Confirm Administered Dose 1 gm .ROUTE .STK-MED ONE Stop: 03/13/19 06:52 Morphine Sulfate 8 mg/Epinephrine HCl 0.3 mg/Cefuroxime Sodium 750 mg/Sodium Chloride 27.9 ml 0 mg .XX ONETIME ONE Stop: 03/13/19 07:16 Last Admin: 03/13/19 08:30 Dose: 758.3 mg Diphenhydramine HCl (Benadryl) 25 mg PO ONETIME ONE Stop: 03/13/19 12:04 Last Admin: 03/13/19 12:23 Dose: 25 mg Epinephrine HCl (Adrenalin) Confirm Administered Dose 1 mg .ROUTE .STK-MED ONE Stop: 03/13/19 07:46 Fentanyl (Sublimaze) Confirm Administered Dose 100 mcg .ROUTE .STK-MED ONE Stop: 03/13/19 06:49 Lactated Ringer's (Ringers, Lactated) 1,000 mls @ 125 mls/hr IV ASDIRECTED [facility] Last Admin: 03/13/19 06:46 Dose: 125 mls/hr Cefazolin Sodium/Dextrose 2 gm (/ Premix) 50 mls @ 100 mls/hr IV Q8H [facility] Stop: 03/14/19 07:29 Last Admin: 03/14/19 06:17 Dose: 100 mls/hr Lactated Ringer's (Ringers, Lactated) Confirm Administered Dose 1,000 mls @ as directed .ROUTE .STK-MED ONE Stop: 03/13/19 07:54 Iodine (Iodine 2% Mild Tincture) Confirm Administered Dose 30 ml .ROUTE .STK- MED ONE Stop: 03/13/19 06:36 Last Admin: 03/13/19 08:26 Dose: 18 ml Lidocaine/Sodium Bicarbonate (Buffered Lidocaine 1% In Ns 8.4%) 0.25 ml IDERM ONETIME PRN PRN Reason: Prior to IV Start Last Admin: 03/13/19 06:45 Dose: 0.25 ml Lorazepam (Ativan) 0 mg IVPUSH Q1H PRN; Protocol PRN Reason: Withdrawal Symptoms Magnesium Hydroxide (Milk Of Magnesia) 30 ml PO ONETIME ONE Stop: 03/15/19 17:01 Last Admin: 03/15/19 18:23 Dose: 30 ml Midazolam HCl (Versed 1 Mg/Ml) Confirm Administered Dose 2 mg .ROUTE .STK-MED ONE Stop: 03/13/19 06:49 Midazolam HCl (Versed 1 Mg/Ml) Confirm Administered Dose 2 mg .ROUTE .STK-MED ONE Stop: 03/13/19 07:31 Midazolam HCl (Versed 1 Mg/Ml) Confirm Administered Dose 2 mg .ROUTE .STK-MED ONE Stop: 03/13/19 07:33 Midazolam HCl (Versed 1 Mg/Ml) Confirm Administered Dose 2 mg .ROUTE .STK-MED ONE Stop: 03/13/19 07:41 Midazolam HCl (Versed 1 Mg/Ml) Confirm Administered Dose 2 mg .ROUTE .STK-MED ONE Stop: 03/13/19 08:40 Midazolam HCl (Versed 1 Mg/Ml) Confirm Administered Dose 2 mg .ROUTE .STK-MED ONE Stop: 03/13/19 08:40 Non-Formulary Medication (Multivitamin [Multivitamins]) 1 tab PO DAILY [facility] Propofol (Diprivan 20 Ml) Confirm Administered Dose 200 mg .ROUTE .STK-MED ONE Stop: 03/13/19 06:49 Ropivacaine (Naropin 0.5%) Confirm Administered Dose 30 ml .ROUTE .STK-MED ONE Stop: 03/13/19 07:46 Tranexamic Acid (Cyklokapron) Confirm Administered Dose 1,000 mg .ROUTE .STK- MED ONE Stop: 03/13/19 06:36 Last Admin: 03/13/19 08:42 Dose: 1,000 mg Vancomycin HCl (Vancomycin) Confirm Administered Dose 1 gm .ROUTE .STK-MED ONE Stop: 03/13/19 06:36 Last Admin: 03/13/19 08:35 Dose: 1 gm - Exam General: Alert, Oriented HEENT: Pupils Equal Neck: Supple Lungs: Clear to Auscultation, Normal Respiratory Effort Cardiovascular: Regular Rate, Regular Rhythm GI/Abdominal Exam: Normal Bowel Sounds, Soft, Non-Tender, No Organomegaly, No Distention Extremities: Normal Inspection, No Pedal Edema Skin: Warm, Dry, Intact Neurological: No New Focal Deficit Psy/Mental Status: Alert, Normal Affect, Normal Mood Consult PN Assessment/Plan Procedures: Procedures AIRWAY INHALATION TREATMENT (07/17/15) ASSAY OF BLOOD/URIC ACID (01/14/19) ASSAY OF DIGOXIN TOTAL (07/17/15) ASSAY OF MAGNESIUM (01/14/19) ASSAY OF NATRIURETIC PEPTIDE (01/14/19) ASSAY OF TROPONIN QUANT (07/17/15) ASSAY THYROID STIM HORMONE (12/17/18) BL SMEAR W/DIFF WBC COUNT (01/14/19) BLOOD TYPING SEROLOGIC ABO (10/06/15) BLOOD TYPING SEROLOGIC RH(D) (10/06/15) C DIFF AMPLIFIED PROBE (12/18/18) C-REACTIVE PROTEIN (01/14/19) CARDIOVASCULAR STRESS TEST (03/02/18) CHEST X-RAY 1 VIEW FRONTAL (07/17/15) CHEST X-RAY 2VW FRONTAL&LATL (10/06/15) COMPLETE CBC AUTOMATED (01/14/19) COMPLETE CBC W/AUTO DIFF WBC (12/17/18) COMPREHEN METABOLIC PANEL (01/14/19) CREATINE MB FRACTION (07/17/15) CRYPTOSPORIDIUM AG IA (12/18/18) CT ANGIOGRAPHY CHEST (01/18/19) ELECTROCARDIOGRAM TRACING (07/17/15) EMERGENCY DEPT VISIT (12/19/18) EMERGENCY DEPT VISIT (10/30/15) EMERGENCY DEPT VISIT (10/30/15) EMERGENCY DEPT VISIT (07/17/15) EVALUATE PT USE OF INHALER (07/17/15) FIBRIN DEGRADATION QUANT (01/14/19) GAIT TRAINING THERAPY (07/17/15) GIARDIA AG IA (12/18/18) GLYCOSYLATED HEMOGLOBIN TEST (01/14/19) HT MUSCLE IMAGE SPECT MULT (03/02/18) INSERT TEMP BLADDER CATH (10/30/15) LEUKOCYTE ASSESSMENT FECAL (12/17/18) LIPID PANEL (01/14/19) METABOLIC PANEL TOTAL CA (10/06/15) OCCULT BLOOD FECES (12/17/18) OFFICE/OUTPATIENT VISIT NEW (12/17/18) OT EVALUATION (07/17/15) PROTHROMBIN TIME (10/06/15) PT EVALUATION (07/17/15) RBC ANTIBODY SCREEN (10/06/15) RBC SED RATE AUTOMATED (12/19/18) ROTAVIRUS AG IA (12/18/18) ROUTINE VENIPUNCTURE (01/14/19) SHIGA-LIKE TOXIN AG IA (12/19/18) STOOL CULTR AEROBIC BACT EA (12/19/18) THER/PROPH/DIAG INJ IV PUSH (07/17/15) THROMBOPLASTIN TIME PARTIAL (07/17/15) TTE W/DOPPLER COMPLETE (01/18/19) URINALYSIS AUTO W/SCOPE (12/19/18) US EXAM ABDOM COMPLETE (01/18/19) US URINE CAPACITY MEASURE (10/30/15) VITAMIN B-12 (01/14/19) X-RAY EXAM CHEST 2 VIEWS (01/14/19) X-RAY EXAM OF ABDOMEN (10/30/15) Problem List Initiated/Reviewed/Updated: Yes My Orders Last 24 Hours: My Active Orders 03/18/19 05:11 HEMOGLOBIN/HEMATOCRIT,HH [HEME] AM Plan: Assessment * 78-year-old male postop day 3 for right total knee arthroplasty. 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 * Hemoglobin down to 8.6 Plan * monitor hemoglobin and vitals. * stable from medical standpoint.
[2019-03-17] MEDS: Acetaminophen/oxyCODONE 325-5 MG Tab PO PRN (21:26)
[2019-03-18] MEDS: Furosemide 40 MG Tab PO SCH (09:13)
[2019-03-18] MEDS: Thiamine 100 MG Tab PO SCH (09:13)
[2019-03-18] MEDS: Metoprolol Succinate 25 MG Tab.ER PO SCH (09:13)
[2019-03-18] MEDS: Aspirin 325 MG Tab.EC PO SCH (09:13)
[2019-03-18] MEDS: Famotidine 20 MG Tab PO SCH (09:13)
[2019-03-18] MEDS: Tamsulosin 0.4 MG Cap.ER PO SCH (09:13)
[2019-03-18] MEDS: Calcium Carbonate/Vitamin D3 600 MG-200 Units Tab PO SCH (09:13)
[2019-03-18] MEDS: Docusate Sodium 100 MG Cap PO SCH (09:13)
[2019-03-18] MEDS: Multivitamins with Minerals/Folic Acid/Lutein/Zeaxanth Tab PO SCH (09:13)
[2019-03-18] MEDS: Folic Acid 1 MG Tab PO SCH (09:13)
--- NOTE | 2019-03-18 09:55 | PCM.CONSN ---
- General Info Date of Service: 03/18/19 Subjective Update: patient is doing well with no complaints. Functional Status: Reports: Pain Controlled - Review of Systems General: Reports: No Symptoms HEENT: Reports: No Symptoms Pulmonary: Reports: No Symptoms Cardiovascular: Reports: No Symptoms Gastrointestinal: Reports: No Symptoms Genitourinary: Reports: No Symptoms - Patient Data Vitals - Most Recent: Last Vital Signs Temp 98.2 F 03/18/19 08:47 Pulse 78 03/18/19 09:13 Resp 20 03/18/19 08:47 BP 125/74 03/18/19 09:13 Pulse Ox 91 L 03/18/19 08:47 Weight - Most Recent: 237 lb 11.2 oz I&O - Last 24 Hours: Intake & Output 03/17/19 03/18/19 03/18/19 22:59 06:59 14:59 Intake Total 1400 1000 Output Total 2200 1350 Balance -800 -350 Lab Results Last 24 Hours: Laboratory Results - last 24 hr 03/18/19 Range/Units 04:55 Hgb 8.7 L (13.7-17.5) gm/L Hct 28.8 L (40.1-51.0) % Med Orders - Current: Current Medications Aspirin (Ecotrin) 325 mg PO BID [facility] Last Admin: 03/18/19 09:13 Dose: 325 mg Bisacodyl (Dulcolax) 5 mg PO DAILY PRN PRN Reason: Constipation Last Admin: 03/15/19 10:56 Dose: 5 mg Calcium Carbonate (Calcium Carbonate/Vitamin D 600 Mg-200 Unit) 1 tab PO BID [facility] Last Admin: 03/18/19 09:13 Dose: 1 tab Cyclobenzaprine HCl (Flexeril) 10 mg PO BID PRN PRN Reason: Spasms Last Admin: 03/14/19 16:09 Dose: 10 mg Dicyclomine HCl (Bentyl) 20 mg PO Q48H PRN PRN Reason: Abdominal cramps/diarrhea Docusate Sodium (Colace) 100 mg PO BID [facility] Last Admin: 03/18/19 09:13 Dose: 100 mg Famotidine (Pepcid) 20 mg PO DAILY [facility] Last Admin: 03/18/19 09:13 Dose: 20 mg Folic Acid (Folic Acid) 1 mg PO DAILY [facility] Last Admin: 03/18/19 09:13 Dose: 1 mg Furosemide (Lasix) 40 mg PO DAILY [facility] Last Admin: 03/18/19 09:13 Dose: 40 mg Lorazepam (Ativan) 0 mg IVPUSH ASDIRECTED PRN; Protocol PRN Reason: Withdrawal Symptoms Lorazepam (Ativan) 2 mg IVPUSH Q4H PRN PRN Reason: Seizures Metoprolol Succinate (Toprol Xl) 25 mg PO DAILY [facility] Last Admin: 03/18/19 09:13 Dose: 25 mg Morphine Sulfate (Morphine) 2 mg IVPUSH Q2H PRN PRN Reason: Breakthrough Pain Last Admin: 03/14/19 11:14 Dose: 2 mg Naloxone HCl (Narcan) 0.1 mg IVPUSH Q5M PRN PRN Reason: Oversedation Ondansetron HCl (Zofran) 4 mg IVPUSH Q6H PRN PRN Reason: Nausea/Vomiting Oxycodone/Acetaminophen (Percocet 325-5 Mg) 1 - 2 tab PO Q4H PRN PRN Reason: Pain Last Admin: 03/17/19 21:26 Dose: 2 tab Senna (Senna) 8.6 mg PO BID PRN PRN Reason: Constipation Last Admin: 03/14/19 21:03 Dose: 8.6 mg Sodium Chloride (Saline Flush) 10 ml FLUSH ASDIRECTED PRN PRN Reason: Keep Vein Open Tamsulosin HCl (Flomax) 0.4 mg PO BID [facility] Last Admin: 03/18/19 09:13 Dose: 0.4 mg Thiamine HCl (Vitamin B-1) 100 mg PO DAILY [facility] Last Admin: 03/18/19 09:13 Dose: 100 mg Vit A/Vit C/Vit E/Selen/Cu/Zn/Lutei (Icaps Mv) 1 tab PO DAILY [facility] Last Admin: 03/18/19 09:13 Dose: 1 tab Discontinued Medications Bupivacaine HCl (Marcaine 0.25%) Confirm Administered Dose 30 ml .ROUTE .STK- MED ONE Stop: 03/13/19 06:36 Last Admin: 03/13/19 08:30 Dose: 30 ml Bupivacaine HCl (Sensorcaine-Mpf 0.75%) Confirm Administered Dose 30 ml .ROUTE .STK-MED ONE Stop: 03/13/19 07:19 Cefazolin Sodium (Ancef) Confirm Administered Dose 2 gm .ROUTE .STK-MED ONE Stop: 03/13/19 06:36 Last Admin: 03/13/19 08:28 Dose: 2 gm Cefazolin Sodium (Ancef) Confirm Administered Dose 1 gm .ROUTE .STK-MED ONE Stop: 03/13/19 06:52 Cefazolin Sodium (Ancef) Confirm Administered Dose 1 gm .ROUTE .STK-MED ONE Stop: 03/13/19 06:52 Morphine Sulfate 8 mg/Epinephrine HCl 0.3 mg/Cefuroxime Sodium 750 mg/Sodium Chloride 27.9 ml 0 mg .XX ONETIME ONE Stop: 03/13/19 07:16 Last Admin: 03/13/19 08:30 Dose: 758.3 mg Diphenhydramine HCl (Benadryl) 25 mg PO ONETIME ONE Stop: 03/13/19 12:04 Last Admin: 03/13/19 12:23 Dose: 25 mg Epinephrine HCl (Adrenalin) Confirm Administered Dose 1 mg .ROUTE .STK-MED ONE Stop: 03/13/19 07:46 Fentanyl (Sublimaze) Confirm Administered Dose 100 mcg .ROUTE .STK-MED ONE Stop: 03/13/19 06:49 Lactated Ringer's (Ringers, Lactated) 1,000 mls @ 125 mls/hr IV ASDIRECTED [facility] Last Admin: 03/13/19 06:46 Dose: 125 mls/hr Cefazolin Sodium/Dextrose 2 gm (/ Premix) 50 mls @ 100 mls/hr IV Q8H [facility] Stop: 03/14/19 07:29 Last Admin: 03/14/19 06:17 Dose: 100 mls/hr Lactated Ringer's (Ringers, Lactated) Confirm Administered Dose 1,000 mls @ as directed .ROUTE .STK-MED ONE Stop: 03/13/19 07:54 Iodine (Iodine 2% Mild Tincture) Confirm Administered Dose 30 ml .ROUTE .STK- MED ONE Stop: 03/13/19 06:36 Last Admin: 03/13/19 08:26 Dose: 18 ml Lidocaine/Sodium Bicarbonate (Buffered Lidocaine 1% In Ns 8.4%) 0.25 ml IDERM ONETIME PRN PRN Reason: Prior to IV Start Last Admin: 03/13/19 06:45 Dose: 0.25 ml Lorazepam (Ativan) 0 mg IVPUSH Q1H PRN; Protocol PRN Reason: Withdrawal Symptoms Magnesium Hydroxide (Milk Of Magnesia) 30 ml PO ONETIME ONE Stop: 03/15/19 17:01 Last Admin: 03/15/19 18:23 Dose: 30 ml Midazolam HCl (Versed 1 Mg/Ml) Confirm Administered Dose 2 mg .ROUTE .STK-MED ONE Stop: 03/13/19 06:49 Midazolam HCl (Versed 1 Mg/Ml) Confirm Administered Dose 2 mg .ROUTE .STK-MED ONE Stop: 03/13/19 07:31 Midazolam HCl (Versed 1 Mg/Ml) Confirm Administered Dose 2 mg .ROUTE .STK-MED ONE Stop: 03/13/19 07:33 Midazolam HCl (Versed 1 Mg/Ml) Confirm Administered Dose 2 mg .ROUTE .STK-MED ONE Stop: 03/13/19 07:41 Midazolam HCl (Versed 1 Mg/Ml) Confirm Administered Dose 2 mg .ROUTE .STK-MED ONE Stop: 03/13/19 08:40 Midazolam HCl (Versed 1 Mg/Ml) Confirm Administered Dose 2 mg .ROUTE .STK-MED ONE Stop: 03/13/19 08:40 Non-Formulary Medication (Multivitamin [Multivitamins]) 1 tab PO DAILY [facility] Propofol (Diprivan 20 Ml) Confirm Administered Dose 200 mg .ROUTE .STK-MED ONE Stop: 03/13/19 06:49 Ropivacaine (Naropin 0.5%) Confirm Administered Dose 30 ml .ROUTE .STK-MED ONE Stop: 03/13/19 07:46 Tranexamic Acid (Cyklokapron) Confirm Administered Dose 1,000 mg .ROUTE .STK- MED ONE Stop: 03/13/19 06:36 Last Admin: 03/13/19 08:42 Dose: 1,000 mg Vancomycin HCl (Vancomycin) Confirm Administered Dose 1 gm .ROUTE .STK-MED ONE Stop: 03/13/19 06:36 Last Admin: 03/13/19 08:35 Dose: 1 gm - Exam General: Alert, Oriented HEENT: Pupils Equal Neck: Supple Lungs: Clear to Auscultation, Normal Respiratory Effort Cardiovascular: Regular Rate, Regular Rhythm GI/Abdominal Exam: Normal Bowel Sounds, Soft, Non-Tender, No Distention Back Exam: Normal Inspection Extremities: Normal Inspection Skin: Warm, Dry Neurological: No New Focal Deficit Consult PN Assessment/Plan Procedures: Procedures AIRWAY INHALATION TREATMENT (07/17/15) ASSAY OF BLOOD/URIC ACID (01/14/19) ASSAY OF DIGOXIN TOTAL (07/17/15) ASSAY OF MAGNESIUM (01/14/19) ASSAY OF NATRIURETIC PEPTIDE (01/14/19) ASSAY OF TROPONIN QUANT (07/17/15) ASSAY THYROID STIM HORMONE (12/17/18) BL SMEAR W/DIFF WBC COUNT (01/14/19) BLOOD TYPING SEROLOGIC ABO (10/06/15) BLOOD TYPING SEROLOGIC RH(D) (10/06/15) C DIFF AMPLIFIED PROBE (12/18/18) C-REACTIVE PROTEIN (01/14/19) CARDIOVASCULAR STRESS TEST (03/02/18) CHEST X-RAY 1 VIEW FRONTAL (07/17/15) CHEST X-RAY 2VW FRONTAL&LATL (10/06/15) COMPLETE CBC AUTOMATED (01/14/19) COMPLETE CBC W/AUTO DIFF WBC (12/17/18) COMPREHEN METABOLIC PANEL (01/14/19) CREATINE MB FRACTION (07/17/15) CRYPTOSPORIDIUM AG IA (12/18/18) CT ANGIOGRAPHY CHEST (01/18/19) ELECTROCARDIOGRAM TRACING (07/17/15) EMERGENCY DEPT VISIT (12/19/18) EMERGENCY DEPT VISIT (10/30/15) EMERGENCY DEPT VISIT (10/30/15) EMERGENCY DEPT VISIT (07/17/15) EVALUATE PT USE OF INHALER (07/17/15) FIBRIN DEGRADATION QUANT (01/14/19) GAIT TRAINING THERAPY (07/17/15) GIARDIA AG IA (12/18/18) GLYCOSYLATED HEMOGLOBIN TEST (01/14/19) HT MUSCLE IMAGE SPECT MULT (03/02/18) INSERT TEMP BLADDER CATH (10/30/15) LEUKOCYTE ASSESSMENT FECAL (12/17/18) LIPID PANEL (01/14/19) METABOLIC PANEL TOTAL CA (10/06/15) OCCULT BLOOD FECES (12/17/18) OFFICE/OUTPATIENT VISIT NEW (12/17/18) OT EVALUATION (07/17/15) PROTHROMBIN TIME (10/06/15) PT EVALUATION (07/17/15) RBC ANTIBODY SCREEN (10/06/15) RBC SED RATE AUTOMATED (12/19/18) ROTAVIRUS AG IA (12/18/18) ROUTINE VENIPUNCTURE (01/14/19) SHIGA-LIKE TOXIN AG IA (12/19/18) STOOL CULTR AEROBIC BACT EA (12/19/18) THER/PROPH/DIAG INJ IV PUSH (07/17/15) THROMBOPLASTIN TIME PARTIAL (07/17/15) TTE W/DOPPLER COMPLETE (01/18/19) URINALYSIS AUTO W/SCOPE (12/19/18) US EXAM ABDOM COMPLETE (01/18/19) US URINE CAPACITY MEASURE (10/30/15) VITAMIN B-12 (01/14/19) X-RAY EXAM CHEST 2 VIEWS (01/14/19) X-RAY EXAM OF ABDOMEN (10/30/15) Problem List Initiated/Reviewed/Updated: Yes Plan: Assessment * 78-year-old male postop day 3 for right total knee arthroplasty. 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 * Hemoglobin stabilized at 8.7 Plan * stable or discharge from medical standpoint.
--- NOTE | 2019-03-18 12:59 | PCM.SURGPN ---
- General Info Date of Service: 03/18/19 POD#: 5 Functional Status: Reports: Pain Controlled, Tolerating Diet, Ambulating, Urinating, Incentive Spirometry, Other (The pt progressed very well with mobility over the weekend. He feels prepared for discharge to home.) - Patient Data Vitals - Most Recent: Last Vital Signs Temp 98.2 F 03/18/19 08:47 Pulse 78 03/18/19 09:13 Resp 20 03/18/19 08:47 BP 125/74 03/18/19 09:13 Pulse Ox 91 L 03/18/19 08:47 Weight - Most Recent: 237 lb 11.2 oz I&O - Last 24 Hours: Intake & Output 03/17/19 03/18/19 03/18/19 22:59 06:59 14:59 Intake Total 1400 1000 Output Total 2200 1350 Balance -800 -350 Lab Results Last 24 Hrs: Laboratory Results - last 24 hr 03/18/19 Range/Units 04:55 Hgb 8.7 L (13.7-17.5) gm/L Hct 28.8 L (40.1-51.0) % Med Orders - Current: Current Medications Aspirin (Ecotrin) 325 mg PO BID [facility] Last Admin: 03/18/19 09:13 Dose: 325 mg Bisacodyl (Dulcolax) 5 mg PO DAILY PRN PRN Reason: Constipation Last Admin: 03/15/19 10:56 Dose: 5 mg Calcium Carbonate (Calcium Carbonate/Vitamin D 600 Mg-200 Unit) 1 tab PO BID [facility] Last Admin: 03/18/19 09:13 Dose: 1 tab Cyclobenzaprine HCl (Flexeril) 10 mg PO BID PRN PRN Reason: Spasms Last Admin: 03/14/19 16:09 Dose: 10 mg Dicyclomine HCl (Bentyl) 20 mg PO Q48H PRN PRN Reason: Abdominal cramps/diarrhea Docusate Sodium (Colace) 100 mg PO BID [facility] Last Admin: 03/18/19 09:13 Dose: 100 mg Famotidine (Pepcid) 20 mg PO DAILY [facility] Last Admin: 03/18/19 09:13 Dose: 20 mg Folic Acid (Folic Acid) 1 mg PO DAILY [facility] Last Admin: 03/18/19 09:13 Dose: 1 mg Furosemide (Lasix) 40 mg PO DAILY [facility] Last Admin: 03/18/19 09:13 Dose: 40 mg Lorazepam (Ativan) 0 mg IVPUSH ASDIRECTED PRN; Protocol PRN Reason: Withdrawal Symptoms Lorazepam (Ativan) 2 mg IVPUSH Q4H PRN PRN Reason: Seizures Metoprolol Succinate (Toprol Xl) 25 mg PO DAILY [facility] Last Admin: 03/18/19 09:13 Dose: 25 mg Morphine Sulfate (Morphine) 2 mg IVPUSH Q2H PRN PRN Reason: Breakthrough Pain Last Admin: 03/14/19 11:14 Dose: 2 mg Naloxone HCl (Narcan) 0.1 mg IVPUSH Q5M PRN PRN Reason: Oversedation Ondansetron HCl (Zofran) 4 mg IVPUSH Q6H PRN PRN Reason: Nausea/Vomiting Oxycodone/Acetaminophen (Percocet 325-5 Mg) 1 - 2 tab PO Q4H PRN PRN Reason: Pain Last Admin: 03/17/19 21:26 Dose: 2 tab Senna (Senna) 8.6 mg PO BID PRN PRN Reason: Constipation Last Admin: 03/14/19 21:03 Dose: 8.6 mg Sodium Chloride (Saline Flush) 10 ml FLUSH ASDIRECTED PRN PRN Reason: Keep Vein Open Tamsulosin HCl (Flomax) 0.4 mg PO BID [facility] Last Admin: 03/18/19 09:13 Dose: 0.4 mg Thiamine HCl (Vitamin B-1) 100 mg PO DAILY [facility] Last Admin: 03/18/19 09:13 Dose: 100 mg Vit A/Vit C/Vit E/Selen/Cu/Zn/Lutei (Icaps Mv) 1 tab PO DAILY [facility] Last Admin: 03/18/19 09:13 Dose: 1 tab Discontinued Medications Bupivacaine HCl (Marcaine 0.25%) Confirm Administered Dose 30 ml .ROUTE .STK- MED ONE Stop: 03/13/19 06:36 Last Admin: 03/13/19 08:30 Dose: 30 ml Bupivacaine HCl (Sensorcaine-Mpf 0.75%) Confirm Administered Dose 30 ml .ROUTE .STK-MED ONE Stop: 03/13/19 07:19 Cefazolin Sodium (Ancef) Confirm Administered Dose 2 gm .ROUTE .STK-MED ONE Stop: 03/13/19 06:36 Last Admin: 03/13/19 08:28 Dose: 2 gm Cefazolin Sodium (Ancef) Confirm Administered Dose 1 gm .ROUTE .STK-MED ONE Stop: 03/13/19 06:52 Cefazolin Sodium (Ancef) Confirm Administered Dose 1 gm .ROUTE .STK-MED ONE Stop: 03/13/19 06:52 Morphine Sulfate 8 mg/Epinephrine HCl 0.3 mg/Cefuroxime Sodium 750 mg/Sodium Chloride 27.9 ml 0 mg .XX ONETIME ONE Stop: 03/13/19 07:16 Last Admin: 03/13/19 08:30 Dose: 758.3 mg Diphenhydramine HCl (Benadryl) 25 mg PO ONETIME ONE Stop: 03/13/19 12:04 Last Admin: 03/13/19 12:23 Dose: 25 mg Epinephrine HCl (Adrenalin) Confirm Administered Dose 1 mg .ROUTE .STK-MED ONE Stop: 03/13/19 07:46 Fentanyl (Sublimaze) Confirm Administered Dose 100 mcg .ROUTE .STK-MED ONE Stop: 03/13/19 06:49 Lactated Ringer's (Ringers, Lactated) 1,000 mls @ 125 mls/hr IV ASDIRECTED [facility] Last Admin: 03/13/19 06:46 Dose: 125 mls/hr Cefazolin Sodium/Dextrose 2 gm (/ Premix) 50 mls @ 100 mls/hr IV Q8H [facility] Stop: 03/14/19 07:29 Last Admin: 03/14/19 06:17 Dose: 100 mls/hr Lactated Ringer's (Ringers, Lactated) Confirm Administered Dose 1,000 mls @ as directed .ROUTE .STK-MED ONE Stop: 03/13/19 07:54 Iodine (Iodine 2% Mild Tincture) Confirm Administered Dose 30 ml .ROUTE .STK- MED ONE Stop: 03/13/19 06:36 Last Admin: 03/13/19 08:26 Dose: 18 ml Lidocaine/Sodium Bicarbonate (Buffered Lidocaine 1% In Ns 8.4%) 0.25 ml IDERM ONETIME PRN PRN Reason: Prior to IV Start Last Admin: 03/13/19 06:45 Dose: 0.25 ml Lorazepam (Ativan) 0 mg IVPUSH Q1H PRN; Protocol PRN Reason: Withdrawal Symptoms Magnesium Hydroxide (Milk Of Magnesia) 30 ml PO ONETIME ONE Stop: 03/15/19 17:01 Last Admin: 03/15/19 18:23 Dose: 30 ml Midazolam HCl (Versed 1 Mg/Ml) Confirm Administered Dose 2 mg .ROUTE .STK-MED ONE Stop: 03/13/19 06:49 Midazolam HCl (Versed 1 Mg/Ml) Confirm Administered Dose 2 mg .ROUTE .STK-MED ONE Stop: 03/13/19 07:31 Midazolam HCl (Versed 1 Mg/Ml) Confirm Administered Dose 2 mg .ROUTE .STK-MED ONE Stop: 03/13/19 07:33 Midazolam HCl (Versed 1 Mg/Ml) Confirm Administered Dose 2 mg .ROUTE .STK-MED ONE Stop: 03/13/19 07:41 Midazolam HCl (Versed 1 Mg/Ml) Confirm Administered Dose 2 mg .ROUTE .STK-MED ONE Stop: 03/13/19 08:40 Midazolam HCl (Versed 1 Mg/Ml) Confirm Administered Dose 2 mg .ROUTE .STK-MED ONE Stop: 03/13/19 08:40 Non-Formulary Medication (Multivitamin [Multivitamins]) 1 tab PO DAILY [facility] Propofol (Diprivan 20 Ml) Confirm Administered Dose 200 mg .ROUTE .STK-MED ONE Stop: 03/13/19 06:49 Ropivacaine (Naropin 0.5%) Confirm Administered Dose 30 ml .ROUTE .STK-MED ONE Stop: 03/13/19 07:46 Tranexamic Acid (Cyklokapron) Confirm Administered Dose 1,000 mg .ROUTE .STK- MED ONE Stop: 03/13/19 06:36 Last Admin: 03/13/19 08:42 Dose: 1,000 mg Vancomycin HCl (Vancomycin) Confirm Administered Dose 1 gm .ROUTE .STK-MED ONE Stop: 03/13/19 06:36 Last Admin: 03/13/19 08:35 Dose: 1 gm - Exam Wound/Incisions: Dressing Dry and Intact General: Alert, Cooperative, No Acute Distress Lungs: Normal Respiratory Effort Extremities: Other (NVS intact for RLE. Verena's negative. ) Skin: Other (Intact blistering noted at upper thigh anteriorly and medially. No evidence of infection at the area noted.) - Problem List Review Problem List Initiated/Reviewed/Updated: Yes - My Orders Last 24 Hours: Active Orders 24 hr Category Date Time Status Ready for Discharge [RC] PER UNIT ROUTINE Care 03/18/19 10:59 Active Medication Orders Aspirin (Ecotrin) 325 mg PO BID [facility] Last Admin: 03/18/19 09:13 Dose: 325 mg Admin: 03/17/19 21:26 Dose: 325 mg Admin: 03/17/19 08:37 Dose: 325 mg Admin: 03/16/19 21:15 Dose: 325 mg Admin: 03/16/19 09:01 Dose: 325 mg Admin: 03/15/19 22:08 Dose: 325 mg Admin: 03/15/19 08:20 Dose: 325 mg Admin: 03/14/19 21:03 Dose: 325 mg Admin: 03/14/19 08:49 Dose: 325 mg Bisacodyl (Dulcolax) 5 mg PO DAILY PRN PRN Reason: Constipation Last Admin: 03/15/19 10:56 Dose: 5 mg Calcium Carbonate (Calcium Carbonate/Vitamin D 600 Mg-200 Unit) 1 tab PO BID [facility] Last Admin: 03/18/19 09:13 Dose: 1 tab Admin: 03/17/19 21:25 Dose: 1 tab Admin: 03/17/19 08:37 Dose: 1 tab Admin: 03/16/19 21:13 Dose: 1 tab Admin: 03/16/19 09:04 Dose: 1 tab Admin: 03/15/19 22:07 Dose: 1 tab Admin: 03/15/19 08:18 Dose: 1 tab Admin: 03/14/19 21:03 Dose: 1 tab Admin: 03/14/19 08:50 Dose: 1 tab Admin: 03/13/19 20:15 Dose: 1 tab Cyclobenzaprine HCl (Flexeril) 10 mg PO BID PRN PRN Reason: Spasms Last Admin: 03/14/19 16:09 Dose: 10 mg Admin: 03/14/19 06:18 Dose: 10 mg Admin: 03/13/19 13:24 Dose: 10 mg Dicyclomine HCl (Bentyl) 20 mg PO Q48H PRN PRN Reason: Abdominal cramps/diarrhea Docusate Sodium (Colace) 100 mg PO BID [facility] Last Admin: 03/18/19 09:13 Dose: 100 mg Admin: 03/17/19 21:26 Dose: 100 mg Admin: 03/17/19 08:49 Dose: 100 mg Admin: 03/16/19 21:14 Dose: 100 mg Admin: 03/16/19 08:59 Dose: 100 mg Admin: 03/15/19 22:07 Dose: 100 mg Admin: 03/15/19 08:18 Dose: 100 mg Admin: 03/14/19 21:03 Dose: 100 mg Admin: 03/14/19 08:49 Dose: 100 mg Admin: 03/13/19 20:15 Dose: 100 mg Admin: 03/13/19 12:19 Dose: Not Given Famotidine (Pepcid) 20 mg PO DAILY [facility] Last Admin: 03/18/19 09:13 Dose: 20 mg Admin: 03/17/19 08:50 Dose: 20 mg Admin: 03/16/19 09:02 Dose: 20 mg Admin: 03/15/19 10:55 Dose: 20 mg Folic Acid (Folic Acid) 1 mg PO DAILY [facility] Last Admin: 03/18/19 09:13 Dose: 1 mg Admin: 03/17/19 08:50 Dose: 1 mg Admin: 03/16/19 09:02 Dose: 1 mg Admin: 03/15/19 08:19 Dose: 1 mg Admin: 03/14/19 08:49 Dose: 1 mg Furosemide (Lasix) 40 mg PO DAILY [facility] Last Admin: 03/18/19 09:13 Dose: 40 mg Admin: 03/17/19 08:37 Dose: 40 mg Admin: 03/16/19 09:01 Dose: 40 mg Admin: 03/15/19 08:19 Dose: 40 mg Lorazepam (Ativan) 0 mg IVPUSH ASDIRECTED PRN; Protocol PRN Reason: Withdrawal Symptoms Lorazepam (Ativan) 2 mg IVPUSH Q4H PRN PRN Reason: Seizures Metoprolol Succinate (Toprol Xl) 25 mg PO DAILY [facility] Last Admin: 03/18/19 09:13 Dose: 25 mg Admin: 03/17/19 08:37 Dose: 25 mg Admin: 03/16/19 09:02 Dose: 25 mg Admin: 03/15/19 08:20 Dose: 25 mg Admin: 03/14/19 08:49 Dose: 25 mg Morphine Sulfate (Morphine) 2 mg IVPUSH Q2H PRN PRN Reason: Breakthrough Pain Last Admin: 03/14/19 11:14 Dose: 2 mg Naloxone HCl (Narcan) 0.1 mg IVPUSH Q5M PRN PRN Reason: Oversedation Ondansetron HCl (Zofran) 4 mg IVPUSH Q6H PRN PRN Reason: Nausea/Vomiting Oxycodone/Acetaminophen (Percocet 325-5 Mg) 1 - 2 tab PO Q4H PRN PRN Reason: Pain Last Admin: 03/17/19 21:26 Dose: 2 tab Admin: 03/16/19 21:15 Dose: 2 tab Admin: 03/16/19 09:00 Dose: 2 tab Admin: 03/15/19 22:08 Dose: 2 tab Admin: 03/15/19 10:55 Dose: 1 tab Admin: 03/15/19 06:28 Dose: 2 tab Admin: 03/14/19 21:03 Dose: 2 tab Admin: 03/14/19 14:54 Dose: 2 tab Admin: 03/14/19 08:51 Dose: 1 tab Admin: 03/13/19 16:42 Dose: 2 tab Admin: 03/13/19 12:23 Dose: 2 tab Senna (Senna) 8.6 mg PO BID PRN PRN Reason: Constipation Last Admin: 03/14/19 21:03 Dose: 8.6 mg Sodium Chloride (Saline Flush) 10 ml FLUSH ASDIRECTED PRN PRN Reason: Keep Vein Open Tamsulosin HCl (Flomax) 0.4 mg PO BID [facility] Last Admin: 03/18/19 09:13 Dose: 0.4 mg Admin: 03/17/19 21:25 Dose: 0.4 mg Admin: 03/17/19 08:37 Dose: 0.4 mg Admin: 03/16/19 21:13 Dose: 0.4 mg Admin: 03/16/19 09:02 Dose: 0.4 mg Admin: 03/15/19 22:08 Dose: 0.4 mg Admin: 03/15/19 08:19 Dose: 0.4 mg Admin: 03/14/19 21:03 Dose: 0.4 mg Admin: 03/14/19 08:50 Dose: 0.4 mg Admin: 03/13/19 20:15 Dose: 0.4 mg Thiamine HCl (Vitamin B-1) 100 mg PO DAILY [facility] Last Admin: 03/18/19 09:13 Dose: 100 mg Admin: 03/17/19 08:50 Dose: 100 mg Admin: 03/16/19 09:03 Dose: 100 mg Admin: 03/15/19 08:20 Dose: 100 mg Admin: 03/14/19 08:49 Dose: 100 mg Vit A/Vit C/Vit E/Selen/Cu/Zn/Lutei (Icaps Mv) 1 tab PO DAILY [facility] Last Admin: 03/18/19 09:13 Dose: 1 tab Admin: 03/17/19 08:36 Dose: 1 tab Admin: 03/16/19 09:01 Dose: 1 tab Admin: 03/15/19 08:18 Dose: 1 tab Admin: 03/14/19 08:50 Dose: 1 tab - Assessment Assessment (Free Text/Narrative):: POD#5 - s/p right TKA - Plan Plan (Free Text/Narrative):: 1. Hgb stable. 2. Discharge to home today. The pt has met inpt therapy goals. Significant improvements with mobility noted over the last day. 3. Outpatient therapy. 4. 325mg ASA PO BID, frequent mobility, TEDs. 5. Follow-up at outpatient [facility]. The pt's case was discussed with Dr. Guerrero.
--- NOTE | 2019-03-18 13:04 | PCM.DCSUM1 ---
Discharge Summary - Hospital Course Brief History: Vargas is a 78 yo male who underwent right TKA on 03-13-2019. The procedure was completed under spinal anesthesia with sedation. The pt tolerated the procedure well and was admitted to Medical-Surgical Unit under inpatient status as the pt required close monitoring of comorbidities including AAA, CKD3, cirrhosis, atrial fibrillation, LE edema, HF with preserved EF, abnormal LFTs, COPD, GERD, hyperuricemia, electrolyte imbalances, prostate cancer with urinary retention, hx cardiac arrhythmia. Medical management was provided by the Hospitalist service. CIWA protocol was in place initially and then was discontinued as pt remain stable and without symptoms. On POD#1, 325mg ASA PO BID was initiated. TEDs and SCDs were also used. The pt received Ancef coleen-operatively. The pt's surgical wound was dressed with a Mepilex dressing and remained clean and dry. The pt participated in PT and OT. He was allowed to WBAT and used a FWW for mobility. The pt was slow to progress with therapies and decision was made for pt to plan for transfer to [place] for continued therapy. On POD#4, the pt was noted to have made significant improvements with mobility and on POD#5, the decision was made to allow the pt to discharge to home with his family. - Discharge Data Discharge Date: 03/18/19 Discharge Disposition: Home, Self-Care 01 Condition: Good - Patient Summary/Data Operative Procedure(s) Performed: right total knee arthroplasty Consults: Consultations 03/13/19 07:15 OT Evaluation and Treatment [CONS] Routine PT Evaluation and Treatment [CONS] Routine 03/13/19 07:16 Consult to Physician [CONS] Routine 03/15/19 10:47 Consult to Case Management/Carpenter Repairer [CONS] Routine - Patient Instructions Diet: Usual Diet as Tolerated Activity: Apply Ice, As Tolerated, Elevate Extremity, Full Weight Bearing Driving: Do Not Drive Showering/Bathing: May Shower Wound/Incision Care: Keep Operative Site/Wound Site Clean and Dry, Do NOT Change Dressing Notify Provider of: Fever, Increased Pain, Swelling and Redness, Drainage, Nausea and/or Vomiting Other/Special Instructions: Please get up and moving around EVERY HOUR while awake. This helps to prevent blood clots. Please use your walker and have help with mobility as needed. Take a short walk in your home every hour while awake. Please take 325mg Aspirin TWICE daily. The aspirin is being used for blood clot prevention and not for pain management so please do not miss a dose of the medication. If allowed by your primary provider, you could use a medication like Zantac or Pepcid and a medication like Prilosec or Nexium to protect your stomach while you are using the aspirin. Please contact Dr. Charlene Smith to discuss this. At home, please complete the exercises that you learned during the Hospital stay. Schedule for physical therapy. Use the pain medication as needed. The medication may cause drowsiness and constipation. Contact your primary care provider for instructions if you are constipated. You may use a stool softener like docusate sodium or Colace 100mg twice daily and/or a laxative like Miralax daily for constipation. Increase your water and fiber intake while you are using the pain medication. Discontinue use of the pain medication as soon as able. Please do not use other medications that may cause drowsiness (other pain medications, anxiety pills, cold medications, sleeping pills, etc) while using the prescription pain medication. Do not use alcohol while using the pain medication. You may use acetaminophen or Tylenol for pain management, however, please ensure you are not using over 4000 mg or 4 grams of acetaminophen per day from all sources. Your pain medication has 325mg of acetaminophen per tablet. Please do not use ibuprofen (Motrin, Advil) or naproxen (Aleve) for pain management as you are using the aspirin and because of your kidney function. Wear the JAQUELIN hose during the day and you may remove these at night. Elevate the limb to decrease swelling. Place ice to the area often. Place a towel between your skin and the blue pad. Use the incentive spirometer often. Take deep breaths throughout the day. Please keep the dressing in place until follow-up. Notify the Clinic if the dressing becomes saturated. Increase your protein intake while you are healing. If you have diabetes, please closely monitor your blood sugars and notify your primary care provider with abnormal values. Elevated blood sugars increases the risk of infection. Call the Clinic with questions or concerns - [phone]. - Discharge Plan *PRESCRIPTION DRUG MONITORING PROGRAM REVIEWED*: No *COPY OF PRESCRIPTION DRUG MONITORING REPORT IN PATIENT ANSHLU: No Prescriptions/Med Rec: Acetaminophen/oxyCODONE [Percocet 325-5 MG] 1 - 2 tab PO Q4H PRN #60 tablet PRN Reason: Pain Aspirin [Ecotrin EC] 325 mg PO BID #84 tab.ec Home Medications: Home Meds Calcium Carbonate/Vitamin D3 [Calcium 600 + D Tablet] 1 tab PO BID 06/02/15 [ History] Multivitamin [Multivitamins] 1 tab PO DAILY 06/02/15 [History] Tamsulosin [Flomax] 0.4 mg PO BID 10/30/15 [History] Antiox #11/OM3/DHA/EPA/Lut/Juan C [Eye Health Adult 50+ Softgel] 1 each PO DAILY [History] Furosemide [Lasix] 40 mg PO DAILY #30 tablet 12/19/18 [Rx] Dicyclomine [Bentyl] 20 mg PO Q48H PRN 03/12/19 [History] Folic Acid 1 mg PO DAILY 03/12/19 [History] Metoprolol Succinate 25 mg PO DAILY 03/12/19 [History] Acetaminophen/oxyCODONE [Percocet 325-5 MG] 1 - 2 tab PO Q4H PRN #60 tablet 10/06 [Rx] Aspirin [Ecotrin EC] 325 mg PO BID #84 tab.ec 03/18/19 [Rx] Bisacodyl [Dulcolax] 5 mg PO DAILY PRN tablet 03/18/19 [Rx] Docusate Sodium [Colace] 100 mg PO BID cap 03/18/19 [Rx] Famotidine [Pepcid] 20 mg PO DAILY tablet 03/18/19 [Rx] Sennosides [Senna] 8.6 mg PO BID PRN tablet 03/18/19 [Rx] Thiamine [Vitamin B-1] 100 mg PO DAILY tablet 03/18/19 [Rx] Referrals: Shahida Mcnulty PA-C [Physician Collections Manager] - (Please follow up with Shahida Mcnulty on 03/20/19 at 0900, and a second follow upon 03/27/19 at 1230.) - Discharge Summary/Plan Comment DC Time >30 min.: No - Patient Data Vitals - Most Recent: Last Vital Signs Temp 98.2 F 03/18/19 08:47 Pulse 78 03/18/19 09:13 Resp 20 03/18/19 08:47 BP 125/74 03/18/19 09:13 Pulse Ox 91 L 03/18/19 08:47 Weight - Most Recent: 237 lb 11.2 oz I&O - Last 24 hours: Intake & Output 03/17/19 03/18/19 03/18/19 22:59 06:59 14:59 Intake Total 1400 1000 Output Total 2200 1350 Balance -800 -350 Lab Results - Last 24 hrs: Laboratory Results - last 24 hr 03/18/19 Range/Units 04:55 Hgb 8.7 L (13.7-17.5) gm/L Hct 28.8 L (40.1-51.0) % Med Orders - Current: Current Medications Aspirin (Ecotrin) 325 mg PO BID [facility] Last Admin: 03/18/19 09:13 Dose: 325 mg Bisacodyl (Dulcolax) 5 mg PO DAILY PRN PRN Reason: Constipation Last Admin: 03/15/19 10:56 Dose: 5 mg Calcium Carbonate (Calcium Carbonate/Vitamin D 600 Mg-200 Unit) 1 tab PO BID [facility] Last Admin: 03/18/19 09:13 Dose: 1 tab Cyclobenzaprine HCl (Flexeril) 10 mg PO BID PRN PRN Reason: Spasms Last Admin: 03/14/19 16:09 Dose: 10 mg Dicyclomine HCl (Bentyl) 20 mg PO Q48H PRN PRN Reason: Abdominal cramps/diarrhea Docusate Sodium (Colace) 100 mg PO BID [facility] Last Admin: 03/18/19 09:13 Dose: 100 mg Famotidine (Pepcid) 20 mg PO DAILY [facility] Last Admin: 03/18/19 09:13 Dose: 20 mg Folic Acid (Folic Acid) 1 mg PO DAILY [facility] Last Admin: 03/18/19 09:13 Dose: 1 mg Furosemide (Lasix) 40 mg PO DAILY [facility] Last Admin: 03/18/19 09:13 Dose: 40 mg Lorazepam (Ativan) 0 mg IVPUSH ASDIRECTED PRN; Protocol PRN Reason: Withdrawal Symptoms Lorazepam (Ativan) 2 mg IVPUSH Q4H PRN PRN Reason: Seizures Metoprolol Succinate (Toprol Xl) 25 mg PO DAILY [facility] Last Admin: 03/18/19 09:13 Dose: 25 mg Morphine Sulfate (Morphine) 2 mg IVPUSH Q2H PRN PRN Reason: Breakthrough Pain Last Admin: 03/14/19 11:14 Dose: 2 mg Naloxone HCl (Narcan) 0.1 mg IVPUSH Q5M PRN PRN Reason: Oversedation Ondansetron HCl (Zofran) 4 mg IVPUSH Q6H PRN PRN Reason: Nausea/Vomiting Oxycodone/Acetaminophen (Percocet 325-5 Mg) 1 - 2 tab PO Q4H PRN PRN Reason: Pain Last Admin: 03/17/19 21:26 Dose: 2 tab Senna (Senna) 8.6 mg PO BID PRN PRN Reason: Constipation Last Admin: 03/14/19 21:03 Dose: 8.6 mg Sodium Chloride (Saline Flush) 10 ml FLUSH ASDIRECTED PRN PRN Reason: Keep Vein Open Tamsulosin HCl (Flomax) 0.4 mg PO BID [facility] Last Admin: 03/18/19 09:13 Dose: 0.4 mg Thiamine HCl (Vitamin B-1) 100 mg PO DAILY [facility] Last Admin: 03/18/19 09:13 Dose: 100 mg Vit A/Vit C/Vit E/Selen/Cu/Zn/Lutei (Icaps Mv) 1 tab PO DAILY [facility] Last Admin: 03/18/19 09:13 Dose: 1 tab Discontinued Medications Bupivacaine HCl (Marcaine 0.25%) Confirm Administered Dose 30 ml .ROUTE .STK- MED ONE Stop: 03/13/19 06:36 Last Admin: 03/13/19 08:30 Dose: 30 ml Bupivacaine HCl (Sensorcaine-Mpf 0.75%) Confirm Administered Dose 30 ml .ROUTE .STK-MED ONE Stop: 03/13/19 07:19 Cefazolin Sodium (Ancef) Confirm Administered Dose 2 gm .ROUTE .STK-MED ONE Stop: 03/13/19 06:36 Last Admin: 03/13/19 08:28 Dose: 2 gm Cefazolin Sodium (Ancef) Confirm Administered Dose 1 gm .ROUTE .STK-MED ONE Stop: 03/13/19 06:52 Cefazolin Sodium (Ancef) Confirm Administered Dose 1 gm .ROUTE .STK-MED ONE Stop: 03/13/19 06:52 Morphine Sulfate 8 mg/Epinephrine HCl 0.3 mg/Cefuroxime Sodium 750 mg/Sodium Chloride 27.9 ml 0 mg .XX ONETIME ONE Stop: 03/13/19 07:16 Last Admin: 03/13/19 08:30 Dose: 758.3 mg Diphenhydramine HCl (Benadryl) 25 mg PO ONETIME ONE Stop: 03/13/19 12:04 Last Admin: 03/13/19 12:23 Dose: 25 mg Epinephrine HCl (Adrenalin) Confirm Administered Dose 1 mg .ROUTE .STK-MED ONE Stop: 03/13/19 07:46 Fentanyl (Sublimaze) Confirm Administered Dose 100 mcg .ROUTE .STK-MED ONE Stop: 03/13/19 06:49 Lactated Ringer's (Ringers, Lactated) 1,000 mls @ 125 mls/hr IV ASDIRECTED [facility] Last Admin: 03/13/19 06:46 Dose: 125 mls/hr Cefazolin Sodium/Dextrose 2 gm (/ Premix) 50 mls @ 100 mls/hr IV Q8H [facility] Stop: 03/14/19 07:29 Last Admin: 03/14/19 06:17 Dose: 100 mls/hr Lactated Ringer's (Ringers, Lactated) Confirm Administered Dose 1,000 mls @ as directed .ROUTE .STK-MED ONE Stop: 03/13/19 07:54 Iodine (Iodine 2% Mild Tincture) Confirm Administered Dose 30 ml .ROUTE .STK- MED ONE Stop: 03/13/19 06:36 Last Admin: 03/13/19 08:26 Dose: 18 ml Lidocaine/Sodium Bicarbonate (Buffered Lidocaine 1% In Ns 8.4%) 0.25 ml IDERM ONETIME PRN PRN Reason: Prior to IV Start Last Admin: 03/13/19 06:45 Dose: 0.25 ml Lorazepam (Ativan) 0 mg IVPUSH Q1H PRN; Protocol PRN Reason: Withdrawal Symptoms Magnesium Hydroxide (Milk Of Magnesia) 30 ml PO ONETIME ONE Stop: 03/15/19 17:01 Last Admin: 03/15/19 18:23 Dose: 30 ml Midazolam HCl (Versed 1 Mg/Ml) Confirm Administered Dose 2 mg .ROUTE .STK-MED ONE Stop: 03/13/19 06:49 Midazolam HCl (Versed 1 Mg/Ml) Confirm Administered Dose 2 mg .ROUTE .STK-MED ONE Stop: 03/13/19 07:31 Midazolam HCl (Versed 1 Mg/Ml) Confirm Administered Dose 2 mg .ROUTE .STK-MED ONE Stop: 03/13/19 07:33 Midazolam HCl (Versed 1 Mg/Ml) Confirm Administered Dose 2 mg .ROUTE .STK-MED ONE Stop: 03/13/19 07:41 Midazolam HCl (Versed 1 Mg/Ml) Confirm Administered Dose 2 mg .ROUTE .STK-MED ONE Stop: 03/13/19 08:40 Midazolam HCl (Versed 1 Mg/Ml) Confirm Administered Dose 2 mg .ROUTE .STK-MED ONE Stop: 03/13/19 08:40 Non-Formulary Medication (Multivitamin [Multivitamins]) 1 tab PO DAILY [facility] Propofol (Diprivan 20 Ml) Confirm Administered Dose 200 mg .ROUTE .STK-MED ONE Stop: 03/13/19 06:49 Ropivacaine (Naropin 0.5%) Confirm Administered Dose 30 ml .ROUTE .STK-MED ONE Stop: 03/13/19 07:46 Tranexamic Acid (Cyklokapron) Confirm Administered Dose 1,000 mg .ROUTE .STK- MED ONE Stop: 03/13/19 06:36 Last Admin: 03/13/19 08:42 Dose: 1,000 mg Vancomycin HCl (Vancomycin) Confirm Administered Dose 1 gm .ROUTE .STK-MED ONE Stop: 03/13/19 06:36 Last Admin: 03/13/19 08:35 Dose: 1 gm
[2019-03-18 15:01] VITALS: BP 111/82
== END 2019-03-18 14:45 | disposition home or self-care (01) | DRG 470 ==
LOC: JD.SDS 05:59 → JD.MS 06:00 → JD.SDS 07:15 → JD.MS 07:16 → EDSTATUS 10:30
PROVIDERS: ADMIT Orthopaedic Surgery; ATTEND Orthopaedic Surgery
PROC: HZ2ZZZZ Detoxification Services for Substance Abuse Treatment (ICD-10-PCS; principal; 2019-03-13)
PROC: 0SRC0J9 Replacement of Right Knee Joint with Synthetic Substitute, Cemented, Open Approach (ICD-10-PCS; 2019-03-13)
DX: M17.11 Unilateral primary osteoarthritis, right knee (principal); I50.32 Chronic diastolic (congestive) heart failure; N18.3 Chronic kidney disease, stage 3 (moderate); I48.91 Unspecified atrial fibrillation; J44.9 Chronic obstructive pulmonary disease, unspecified; K21.9 Gastro-esophageal reflux disease without esophagitis; F41.9 Anxiety disorder, unspecified; I25.10 Atherosclerotic heart disease of native coronary artery without angina pectoris; N40.0 Benign prostatic hyperplasia without lower urinary tract symptoms; Z96.642 Presence of left artificial hip joint; G25.81 Restless legs syndrome; R94.5 Abnormal results of liver function studies; R51 Headache; K52.9 Noninfective gastroenteritis and colitis, unspecified; Z79.82 Long term (current) use of aspirin; Z79.899 Other long term (current) drug therapy; Z98.49 Cataract extraction status, unspecified eye; Z88.8 Allergy status to other drugs, medicaments and biological substances
CPT/HCPCS: 01402; 36415; 64450; 73560-26-RT; 73560-RT; 80053; 83735; 85014; 85018; 85025; 85027; 87641; 94760; 94761; 97110-GO; 97110-GP; 97116-GP; 97161-GP; 97165-GO; 97535-GO; A9270-GY; C1713; C1776; G0480; J0171; J0690; J0697; J2250; J2270; J2704; J2795; J3010; J3370; J3490; J7120

== ENCOUNTER 2019-06-17 08:29 | Day surgery (SDC) | payer MEDICARE, OTHER ==
--- NOTE | 2019-06-17 09:27 | PCM.PREANE ---
Preanesthetic Assessment - Anesthesia/Transfusion/Family Hx Anesthesia History: Prior Anesthesia Without Reaction Family History of Anesthesia Reaction: No Transfusion History: Prior Transfusion Without Reaction Intubation History: Unknown - Review of Systems General: Weakness, Fatigue, Other (anemia, hgb 10.7) Pulmonary: Other (COPD, asthma) Cardiovascular: Other (HTN, CHF, class 3, CAD, PSVT, ACS, stable AAA at 3.8cm), Echo shows EF 60%, EKG shows SR withold infarct) Gastrointestinal: Other (GI bleed) Neurological: Gait Disturbance Other: Reports: None - Physical Assessment NPO Status Date: 06/16/19 NPO Status Time: 22:00 Weight: 99.6 kg ASA Class: 3 Mental Status: Alert & Oriented x3 Airway Class: Mallampati = 2 Dentition: Reports: Normal Dentition Thyro-Mental Finger Breadths: 3 Mouth Opening Finger Breadths: 3 ROM/Head Extension: Limited/Partial Lungs: Clear to Auscultation, Normal Respiratory Effort Cardiovascular: Regular Rate, Regular Rhythm - Allergies Allergies/Adverse Reactions: Allergies Allergy/AdvReac Type Severity Reaction Status Date / Time pravastatin AdvReac Joint Pain Verified 06/14/19 12:30 ropinirole [From Requip] AdvReac Joint Pain Verified 06/14/19 12:30 - Blood Blood Available: No Product(s) Available: None - Anesthesia Plan Pre-Op Medication Ordered: None Med Last Dose Date: 06/16/19 Med Last Dose Time: 09:00 - Acknowledgements Anesthesia Type Planned: MAC Pt an Appropriate Candidate for the Planned Anesthesia: Yes Alternatives and Risks of Anesthesia Discussed w Pt/Guardian: Yes Pt/Guardian Understands and Agrees with Anesthesia Plan: Yes PreAnesthesia Questionnaire HEENT History: Reports: Impaired Vision, Other (See Below) Other HEENT History: Upper partial denture Cardiovascular History: Reports: CAD, Heart Failure, High Cholesterol, Hypertension, Other (See Below) Other Cardiovascular History: AAA (3.8 cm), PSVT, iliac artery aneurysm Respiratory History: Reports: Asthma, COPD, Other (See Below) Other Respiratory History: Empyema of pleura Gastrointestinal History: Reports: GERD, Other (See Below) Other Gastrointestinal History: Abnormal liver enzymes Genitourinary History: Reports: Chronic Renal Insuffiency, Retention, 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: Reports: None Musculoskeletal History: Reports: Gout, Osteoarthritis, Other (See Below) Other Musculoskeletal History: Restless leg syndrome Neurological History: Reports: None Psychiatric History: Reports: Anxiety, Other (See Below) Other Psychiatric History: ETOH abuse (Quit drinking in February 2019) Endocrine/Metabolic History: Reports: None Hematologic History: Reports: Anemia, Blood Transfusion(s) Immunologic History: Reports: None Oncologic (Cancer) History: Reports: Prostate Dermatologic History: Reports: Other (See Below) Other Dermatologic History: Vitiligo - Past Surgical History Head Surgeries/Procedures: Reports: None HEENT Surgical History: Reports: None Cardiovascular Surgical History: Reports: None Respiratory Surgical History: Reports: None GI Surgical History: Reports: None Male Surgical History: Reports: None Endocrine Surgical History: Reports: None Neurological Surgical History: Reports: None Musculoskeletal Surgical History: Reports: Other (See Below) Other Musculoskeletal Surgeries/Procedures:: Right TKA (02/2019) Oncologic Surgical History: Reports: None Dermatological Surgical History: Reports: None - SUBSTANCE USE Smoking Status *Q: Former Smoker Second Hand Smoke Exposure: No Recreational Drug Use History: No - HOME MEDS Home Medications: Home Meds Calcium Carbonate/Vitamin D3 [Calcium 600 + D Tablet] 1 tab PO BID 06/02/15 [ History] Tamsulosin [Flomax] 0.4 mg PO DAILY 10/30/15 [History] Furosemide [Lasix] 40 mg PO DAILY #30 tablet 12/19/18 [Rx] Folic Acid 1 mg PO DAILY 03/12/19 [History] Thiamine [Vitamin B-1] 100 mg PO DAILY tablet 03/18/19 [Rx] Aspirin [Halfprin] 81 mg PO DAILY 06/14/19 [History] Ferrous Sulfate [Iron] 325 mg PO DAILY 06/14/19 [History] Lutein/Min/Vit C/Vit E Acetate [Ocuvite Lutein] 1 cap PO DAILY 06/14/19 [History ] Metoprolol Tartrate 25 mg PO BID 06/14/19 [History] Multivitamin with Minerals [Multivitamins with Minerals] 1 tab PO DAILY [History] Omeprazole Magnesium [Prilosec Otc] 40 mg PO BID 06/14/19 [History] Potassium Chloride [Klor-Con M20] 20 meq PO DAILY 06/14/19 [History] - CURRENT (IN HOUSE) MEDS Current Meds: Current Medications Lactated Ringer's (Ringers, Lactated) 1,000 mls @ 125 mls/hr IV ASDIRECTED [facility] Stop: 06/17/19 23:00 Lidocaine/Sodium Bicarbonate (Buffered Lidocaine 1% In Ns 8.4%) 0.25 ml IDERM ONETIME PRN PRN Reason: Prior to IV Start Stop: 06/17/19 18:00 Sodium Chloride (Saline Flush) 10 ml FLUSH ASDIRECTED PRN PRN Reason: Keep Vein Open Stop: 06/17/19 18:00
[2019-06-17] MEDS ORDERED: Propofol 200 MG/20 ML SDV ONE ×2 (09:45→11:22)
[2019-06-17] MEDS ORDERED: Midazolam 1 MG/ML 2 ML SDV ONE (09:46)
[2019-06-17] MEDS ORDERED: fentaNYL 100 MCG/2 ML SDV ONE (09:46)
--- NOTE | 2019-06-17 11:48 | PCM48HPAN ---
Post Anesthesia Note - EVALUATION WITHIN 48HRS OF ANESTHETIC Vital Signs in Normal Range: Yes Patient Participated in Evaluation: Yes Respiratory Function Stable: Yes Airway Patent: Yes Cardiovascular Function Stable: Yes Hydration Status Stable: Yes Pain Control Satisfactory: Yes Nausea and Vomiting Control Satisfactory: Yes Mental Status Recovered: Yes Vital Signs: Last Vital Signs Temp 36.8 C 06/17/19 09:04 Pulse 69 06/17/19 09:04 Resp 18 06/17/19 09:04 BP 117/75 06/17/19 09:04 Pulse Ox 94 L 06/17/19 09:04
[2019-06-17 12:01] VITALS: BP 104/72; PULSE 56
--- NOTE | 2019-06-18 09:38 | OR ---
DATE OF OPERATION: 06/17/2019 SURGEON: Erika Negrete MD PREOPERATIVE DIAGNOSIS: Gastrointestinal bleeding. POSTOPERATIVE DIAGNOSIS: Gastric body and fundic diminutive polyps and colonic polyps in the ascending colon and rectum. OPERATION PERFORMED: 1. Esophagogastroduodenoscopy. 2. Colonoscopy with polypectomy. ANESTHESIA: Monitored anesthesia. ESTIMATED BLOOD LOSS: Minimal. INDICATION AND CONSENT: Vargas Saravia is a 78-year-old male who had acute episode of melena associated with fatigue and lightheadedness. The patient was seen in clinic, was found to be anemic with a blood level of 7.5. The patient was sent to the emergency department where he received 2 units of blood. Since that time, the patient has been stable. His most recent check of hemoglobin was 10.7. This was on 06/13/2019. The patient has been totally asymptomatic, but he was sent to my clinic to be evaluated for possible esophagogastroduodenoscopy, colonoscopy to see if there is any obvious source of bleeding. To this end, the patient was offered these procedures. We had a detailed discussion about the risks, benefits, and alternatives to the procedure. The patient agreed to proceed with the procedure. Informed consent was obtained. DESCRIPTION OF PROCEDURE: The patient was taken to the procedure room, placed in left lateral decubitus position. Following induction of monitored anesthesia, a bite block was placed in the patient's mouth and then we began the procedure by performing esophagogastroduodenoscopy. Scope was inserted into the mouth and advanced through the esophagus, stomach into the 1st and 2nd portion of duodenum. Duodenum appeared to be normal. Then, the scope was withdrawn into the stomach and antrum. Antrum was inspected including the pylorus, both appeared to be normal. The stomach body had diminutive 1 to 3 mm small polyps. The fundus had the same polyps as well. Two of these polyps were biopsied for pathologic confirmation that these are likely benign. There was minimal bleeding from the base and then retroflexion was performed. There was a small to moderate hiatal hernia without any signs of ulcerations. The scope was then withdrawn to the GE junction. This appeared to be normal. The distal esophagus also appeared to be normal. The scope was slowly withdrawn. The esophagus otherwise appeared to be normal. The scope was withdrawn all the way out. The biopsies in this portion of the procedure were done with cold forceps. Next, we turned our attention to the colonoscopy. Colonoscopy was hooked up into the machine. Exam was performed and we noted only a few skin tags. Then, the scope was inserted, advanced all the way to the cecum. Cecal valve and appendiceal orifice were photographed as well as terminal ileum. The endoscope was slowly withdrawn from the cecum and immediately was noted 8 mm polyp in the ascending colon. This was removed with a hot snare. The removal was complete. Then, we continued to withdraw the scope, making sure to look all throughout the colon for any stigmata of bleeding. There was nothing in the rest of the ascending colon, transverse, descending colon as well as the sigmoid and rectum. However, in the rectum, there was a small about 2 cm raised area. The mucosa appeared to be benign. This was most consistent with a lipoma, but because it was not obviously clear this was a lipoma, we decided to go ahead and biopsy this area. A snare was used for biopsy. Prior to snare placement, the saline was injected to the submucosa to raise this lesion up and then this kristine-shaped snare was placed under this lesion and hot snare was used to remove this lipoma. There was a minimal amount of oozing. This was controlled with a hot snare as well. This was retrieved for pathologic evaluation. When this was done, retroflexion was performed. There was no significant hemorrhoids or ulcerated hemorrhoids that could be bleeding. Then, the scope was withdrawn. Therefore, this exam did not show any etiology on stigmata of colonic bleeding. The patient tolerated the procedure well. The patient was then awakened from monitored anesthesia, taken to the PACU for further recovery. The patient will follow up with our advanced nurse-practitioner, Ashli Flowers, for followup for his biopsies. All instructions were given to the patient prior to the discharge. [facility] /[id number]
== END 2019-06-17 12:55 | disposition home or self-care (01) ==
LOC: JD.SDS 08:29
PROVIDERS: ATTEND Surgery
DX: K31.7 Polyp of stomach and duodenum (principal); D12.2 Benign neoplasm of ascending colon; D17.79 Benign lipomatous neoplasm of other sites; K21.9 Gastro-esophageal reflux disease without esophagitis; I25.10 Atherosclerotic heart disease of native coronary artery without angina pectoris; I13.0 Hypertensive heart and chronic kidney disease with heart failure and stage 1 through stage 4 chronic kidney disease, or unspecified chronic kidney disease; N18.9 Chronic kidney disease, unspecified; I50.9 Heart failure, unspecified; J44.9 Chronic obstructive pulmonary disease, unspecified; E78.5 Hyperlipidemia, unspecified; E78.00 Pure hypercholesterolemia, unspecified; M10.9 Gout, unspecified; M19.90 Unspecified osteoarthritis, unspecified site; K44.9 Diaphragmatic hernia without obstruction or gangrene; Z88.8 Allergy status to other drugs, medicaments and biological substances; Z79.899 Other long term (current) drug therapy; Z79.82 Long term (current) use of aspirin; Z87.891 Personal history of nicotine dependence
CPT/HCPCS: 36415; 43239; 45388; 85025; J2250; J2704; J3010; J7120; 00813

== ENCOUNTER 2021-03-09 06:40 | Observation (INO) | payer MEDICARE, OTHER ==
[2021-03-09] MEDS ORDERED: Metoclopramide 10 MG/2 ML SDV IVPUSH ONE (07:14)
[2021-03-09] MEDS ORDERED: HYDROmorphone 0.5 MG/0.5 ML Syringe IVPUSH ONE (07:14)
[2021-03-09] MEDS ORDERED: Dextrose 5%-0.9% NaCl 1,000 ML IV SCH (07:15)
--- NOTE | 2021-03-09 07:19 | EDM.PDOC ---
ED HPI GENERAL MEDICAL PROBLEM - General Chief Complaint: Gastrointestinal Problem Stated Complaint: DIARRHEA X 2 DAYS Time Seen by Provider: 03/09/21 07:04 Source of Information: Reports: Patient, Family (spouse) History Limitations: Reports: No Limitations - History of Present Illness INITIAL COMMENTS - FREE TEXT/NARRATIVE: 80-year-old male presents to the ED in the accompaniment of his . History suggest that he underwent multilevel discectomy and fusion by Dr. Kelly --neurosurgeon at [facility] in [place] on February 19. He was discharged home within a day or so of the operation. He was taking narcotics for the first week of illness but was hallucinating with them and therefore discontinued them. He did have development of constipation associate with use of narcotics as well. Bowels got moving with several doses of laxatives. Diet has been poor due to loss of appetite. About 2 and half days ago he started to have loose diarrheal stools. Since 11:00 last night he has had 5 loose stools containing no blood but some mucus. Associated diffuse lower abdominal cramping pain primarily in the left lower quadrant and suprapubically. No noted fever or chills. Of course he finds it very difficult to get to the bathroom due to recent back fusion and wearing a corset. No history of diverticulitis. He denies being on any antibiotics since surgery. Took Imodium the last few days with no relief. He has been up all night because of the cramps and diarrhea almost every hour. This history is highly suggestive of possible C. difficile enteritis. No previous abdominal surgery. He has a history of prostate cancer treated by cesium seed implant. Onset: Sudden Onset Date: 03/06/21 (Symptoms started on the evening of March 06.) Duration: Day(s):, Getting Worse, Waxing/Waning Location: Reports: Abdomen (Lower abdominal cramping pain with a strong sense of urgency to have a bowel movement. Diarrhea stool x5 in the last 8 hours.) Quality: Reports: Other (Cramping) Severity: Moderate (left lower quadrant and suprapubic abdominal pain) Improves with: Reports: None Worsens with: Reports: Eating Context: Reports: Other (On February 19 and no doubt received antibiotics preoperatively but he denies being on antibiotics post discharge.). Denies: Activity, Exercise, Lifting, Sick Contact, Trauma Associated Symptoms: Reports: Loss of Appetite, Malaise, Weakness, Other (Lower back pain postop.). Denies: Confusion, Chest Pain, Cough, cough w sputum, Diaphoresis, Fever/Chills, Headaches, Nausea/Vomiting, Rash, Seizure, Shortness of Breath, Syncope Treatments BLENDER / COOK: Reports: Acetaminophen, NSAIDS Lower Abdomen Pain Score (Numeric/FACES): 2 - Related Data Allergies Allergy/AdvReac Type Severity Reaction Status Date / Time pravastatin AdvReac Joint Pain Verified 03/09/21 07:03 ropinirole [From Requip] AdvReac Joint Pain Verified 03/09/21 07:03 Home Meds: Home Meds Calcium Carbonate/Vitamin D3 [Calcium 600 + D Tablet] 1 tab PO BID 06/02/15 [History] Tamsulosin [Flomax] 0.4 mg PO DAILY 10/30/15 [History] Furosemide [Lasix] 40 mg PO DAILY #30 tablet 12/19/18 [Rx] Folic Acid 1 mg PO DAILY 03/12/19 [History] Thiamine [Vitamin B-1] 100 mg PO DAILY tablet 03/18/19 [Rx] Aspirin [Halfprin] 81 mg PO DAILY 06/14/19 [History] Ferrous Sulfate [Iron] 325 mg PO DAILY 06/14/19 [History] Lutein/Min/Vit C/Vit E Acetate [Ocuvite Lutein] 1 cap PO DAILY 06/14/19 [Histor y] Metoprolol Tartrate 25 mg PO BID 06/14/19 [History] Multivitamin with Minerals [Multivitamins with Minerals] 1 tab PO DAILY 06/14/19 [History] Omeprazole Magnesium [Prilosec Otc] 40 mg PO BID 06/14/19 [History] Potassium Chloride [Klor-Con M20] 20 meq PO DAILY 06/14/19 [History] Ibuprofen [Motrin Ib] 200 mg PO 06/16/20 [History] Metoprolol Succinate 25 mg PO 06/16/20 [History] Triamcinolone Acetonide [Triamcinolone Acetonide 0.5% Oint] 15 gm .XX 06/16/20 [History] Vit C/E/Zn/Coppr/Lutein/Zeaxan [Preservision Areds 2 Softgel] 1 each PO 06/16/20 [History] Past Medical History HEENT History: Reports: Impaired Vision, Other (See Below) Other HEENT History: Upper partial denture Cardiovascular History: Reports: CAD, Heart Failure, High Cholesterol, Hypertension, Other (See Below) Other Cardiovascular History: AAA (3.8 cm), PSVT, iliac artery aneurysm Respiratory History: Reports: None, Asthma, COPD, Other (See Below) Other Respiratory History: Empyema of pleura Gastrointestinal History: Reports: GERD, Other (See Below) Other Gastrointestinal History: Abnormal liver enzymes Genitourinary History: Reports: Chronic Renal Insuffiency, Retention, Urinary ALLERGIST History: Reports: None Musculoskeletal History: Reports: Gout, Osteoarthritis, Other (See Below) Other Musculoskeletal History: Restless leg syndrome Neurological History: Reports: None Psychiatric History: Reports: Anxiety, Other (See Below) Other Psychiatric History: ETOH abuse (Quit drinking in February 2019) Endocrine/Metabolic History: Reports: None Hematologic History: Reports: Anemia, Blood Transfusion(s) Immunologic History: Reports: None Oncologic (Cancer) History: Reports: Prostate Dermatologic History: Reports: Other (See Below) Other Dermatologic History: Vitiligo - Past Surgical History Head Surgeries/Procedures: Reports: None HEENT Surgical History: Reports: None Cardiovascular Surgical History: Reports: None Respiratory Surgical History: Reports: None Other Respiratory Surgeries/Procedures: emphyema GI Surgical History: Reports: None Male Surgical History: Reports: None Other Male Surgeries/Procedures: prostate seeds Endocrine Surgical History: Reports: None Neurological Surgical History: Reports: None Musculoskeletal Surgical History: Reports: Other (See Below) Other Musculoskeletal Surgeries/Procedures:: Right TKA (02/2019). spinal fusion 02/19/21 Oncologic Surgical History: Reports: None Dermatological Surgical History: Reports: None Social & Family History - Family History Family Medical History: No Pertinent Family History - Tobacco Use Tobacco Use Status *Q: Former Tobacco User Used Tobacco, but Quit: Yes Month/Year Tobacco Last Used: 22 years ago - Caffeine Use Caffeine Use: Reports: None - Recreational Drug Use Recreational Drug Use: No - Living Situation & Occupation Living situation: Reports: Occupation: Retired ED ROS GENERAL - Review of Systems Review Of Systems: See Below Constitutional: Reports: Malaise, Weakness, Fatigue, Decreased Appetite, Weight Loss. Denies: Fever, Chills HEENT: Reports: Glasses Respiratory: Reports: Shortness of Breath. Denies: Wheezing, Pleuritic Chest Pain (On exertion only.), Cough, Sputum Cardiovascular: Reports: Blood Pressure Problem, Dyspnea on Exertion, Lightheadedness (Occasional.). Denies: Chest Pain, Claudication, Edema, Orthopnea, Palpitations (Occasional.) Endocrine: Reports: Fatigue GI/Abdominal: Reports: Abdominal Pain (Left lower quadrant abdominal cramping pain and suprapubic abdominal cramping pain), Diarrhea (On average), Decreased Appetite ( 12-15 bowel movements x2 days.), Other (Occasional problems with GERD.). Denies: Difficulty Swallowing, Hematochezia, Melena : Reports: Frequency, Incontinence (Occasional urge incontinence.), Other (History of prostate cancer treated by cesium seed implant many years ago.) Musculoskeletal: Reports: Back Pain (Recent low back surgery on February 19 with multilevel fusion and discectomy carried out at [facility] in [place].) Skin: Reports: No Symptoms Neurological: Reports: Difficulty Walking (Using a walker.), Weakness. Denies: Confusion, Dizziness, Headache, Syncope Psychiatric: Reports: No Symptoms Hematologic/Lymphatic: Reports: No Symptoms Immunologic: Reports: No Symptoms ED EXAM, GI/ABD - Physical Exam Exam: See Below Exam Limited By: No Limitations General Appearance: Alert, WD/WN, No Apparent Distress, Other (Temperature is 36.5 degrees. Heart rate is 88 and sinus. Respiratory is 18. BP 114/71 O2 sats 93% room air.) Eyes: Bilateral: Normal Appearance Throat/Mouth: Normal Inspection, Normal Oropharynx, Other (Tongue is mildly dry and coated.) Head: Atraumatic (No oropharyngeal infection.), Normocephalic Neck: Limited Range of Motion. No: Carotid Bruit, Lymphadenopathy (L), Lymphadenopathy (R), Thyromegaly Respiratory/Chest: No Respiratory Distress, Lungs Clear, No Accessory Muscle Use, Chest Non-Tender, Decreased Breath Sounds (Breath sounds are mildly diminished to the lower 10% lung hamilton bilaterally.) Cardiovascular: Normal Peripheral Pulses, Regular Rate, Rhythm, No Edema, No Gallop, No Murmur, No Rub GI/Abdominal Exam: Soft, Distended (Bowel sounds are hyperactive in all 4 quadrants.), Guarding (Left lower quadrant), Tender (Tenderness in the distribution of the sigmoid colon left lower quadrant with), Abnormal Bowel Sounds. No: Rigid ( minimal guarding.), Rebound (Male) Exam: No Hernia Back Exam: Other (Back was not examined at this time as it is too difficult for him to rollover and he has still of this close on with a) Extremities: Normal Inspection, Normal Range of Motion, Non-Tender, No Pedal Edema Neurological: Alert, Oriented, CN II-XII Intact, Normal Cognition Psychiatric: Normal Affect, Normal Mood Skin Exam: Warm, Dry, Intact, Normal Color, No Rash Course - Vital Signs Last Recorded V/S: Last Vital Signs Temp 36.5 C 03/09/21 06:53 Pulse 88 03/09/21 06:53 Resp 18 03/09/21 06:53 BP 114/71 03/09/21 06:53 Pulse Ox 93 L 03/09/21 06:53 - Orders/Labs/Meds Orders: Active Orders 24 hr Category Date Time Status Admission Status [Patient Status] [ADT] Routine ADT 03/09/21 10:36 Active EKG Documentation Completion [RC] STAT Care 03/09/21 10:41 Active C DIFFICILE TOXIN IMMUNOASSAY [MREF] Stat Lab 03/09/21 09:25 Received FECAL LACTOFERRIN [MREF] Stat Lab 03/09/21 09:25 Received STOOL CULTURE/SHIGA TOXIN [MREF] Stat Lab 03/09/21 09:30 Ordered Dextrose 5%-0.9% NaCl [Dextrose 5%-Normal Saline] 1,000 Med 03/09/21 07:15 Active ml IV ASDIRECTED Magnesium Sulfate/Water [Magnesium Sulfate in Water 4 Med 03/09/21 09:49 Active GM/50 ML] 4 gm Premix Bag 1 bag IV ONETIME Potassium Chloride [KCl in Water 10 MEQ/100 ML] 10 meq Med 03/09/21 10:00 Active Premix Bag 1 bag IV Q1H metroNIDAZOLE/Normal Saline [Flagyl in NS 500 MG/100 ML Med 03/09/21 10:48 Ordered ] 500 mg Premix Bag 1 bag IV ONETIME Medication Orders Dextrose/Sodium Chloride (Dextrose 5%-Normal Saline) 1,000 mls @ 250 mls/hr IV ASDIRECTED CHEO Last Admin: 03/09/21 07:29 Dose: 250 mls/hr Documented by: JOSE Magnesium Sulfate 4 gm/ Premix 50 mls @ 12.5 mls/hr IV ONETIME ONE Stop: 03/09/21 13:48 Last Admin: 03/09/21 09:58 Dose: 12.5 mls/hr Documented by: JOSE Potassium Chloride 10 meq/ (Premix) 100 mls @ 100 mls/hr IV Q1H CHEO Stop: 03/09/21 12:59 Last Admin: 03/09/21 09:57 Dose: 100 mls/hr Documented by: JOSE Labs: Laboratory Tests 03/09/21 03/09/21 03/09/21 Range/Units 07:31 07:31 07:31 WBC 7.14 (4.23-9.07) K/mm3 RBC 3.50 L (4.63-6.08) M/mm3 Hgb 12.8 L (13.7-17.5) gm/dl Hct 38.4 L (40.1-51.0) % MCV 109.7 H (79.0-92.2) fl MCH 36.6 H (25.7-32.2) pg MCHC 33.3 (32.2-35.5) g/dl RDW Std Deviation 52.0 H (35.1-43.9) fL Plt Count 188 (163-337) K/mm3 MPV 9.2 L (9.4-12.3) fl Neut % (Auto) 71.0 H (34.0-67.9) % Lymph % (Auto) 14.6 L (21.8-53.1) % Centre % (Auto) 13.4 H (5.3-12.2) % Eos % (Auto) 0.6 L (0.8-7.0) Baso % (Auto) 0.3 (0.1-1.2) % Neut # (Auto) 5.07 (1.78-5.38) K/mm3 Lymph # (Auto) 1.04 L (1.32-3.57) K/mm3 Centre # (Auto) 0.96 H (0.30-0.82) K/mm3 Eos # (Auto) 0.04 (0.04-0.54) K/mm3 Baso # (Auto) 0.02 (0.01-0.08) K/mm3 Manual Slide Review Abnormal smear PT 12.2 H (9.7-12.0) SECONDS INR 1.14 APTT 29.3 (21.7-31.4) SECONDS Sodium 141 (136-145) mEq/L Potassium 3.2 L (3.5-5.1) mEq/L Chloride 101 (98-107) mEq/L Carbon Dioxide 28 (21-32) mEq/L Anion Gap 15.2 H (5-15) BUN 14 (7-18) mg/dL Creatinine 1.2 (0.7-1.3) mg/dL Est Cr Clr Drug Dosing 49.85 mL/min Estimated GFR (MDRD) 58 (>60) mL/min BUN/Creatinine Ratio 11.7 L (14-18) Glucose 130 H (70-99) mg/dL Calcium 9.2 (8.5-10.1) mg/dL Magnesium 1.3 L (1.8-2.4) mg/dL Total Bilirubin 2.0 H (0.2-1.0) mg/dL AST 28 (15-37) U/L ALT 20 (16-63) U/L Alkaline Phosphatase 92 (46-116) U/L C-Reactive Protein 3.3 H* (<1.0) mg/dL NT-Pro-B Natriuret Pep (0-450) pg/mL Total Protein 7.6 (6.4-8.2) g/dl Albumin 3.2 L (3.4-5.0) g/dl Globulin 4.4 gm/dL Albumin/Globulin Ratio 0.7 L (1-2) Lipase 86 (73-393) U/L Urine Color (Yellow) Urine Appearance (Clear) Urine pH (5.0-8.0) Ur Specific [place] (1.005-1.030) Urine Protein (Negative) Urine Glucose (UA) (Negative) Urine Ketones (Negative) Urine Occult Blood (Negative) Urine Nitrite (Negative) Urine Bilirubin (Negative) Urine Urobilinogen (0.2-1.0) Ur Leukocyte Esterase (Negative) U Hyaline Cast (Auto) (0-5) /lpf Urine RBC (0-5) /hpf Urine WBC (0-5) /hpf Ur Squamous Epith Cells (0-5) /hpf Urine Bacteria (FEW) /hpf Urine Mucus (FEW) /hpf C.difficile 027-NAP1-B1 C. difficile Tox (PCR) SARS-CoV-2 RNA (DANELLE) (NEGATIVE) 03/09/21 03/09/21 03/09/21 Range/Units 07:31 09:25 09:30 WBC (4.23-9.07) K/mm3 RBC (4.63-6.08) M/mm3 Hgb (13.7-17.5) gm/dl Hct (40.1-51.0) % MCV (79.0-92.2) fl MCH (25.7-32.2) pg MCHC (32.2-35.5) g/dl RDW Std Deviation (35.1-43.9) fL Plt Count (163-337) K/mm3 MPV (9.4-12.3) fl Neut % (Auto) (34.0-67.9) % Lymph % (Auto) (21.8-53.1) % Centre % (Auto) (5.3-12.2) % Eos % (Auto) (0.8-7.0) Baso % (Auto) (0.1-1.2) % Neut # (Auto) (1.78-5.38) K/mm3 Lymph # (Auto) (1.32-3.57) K/mm3 Centre # (Auto) (0.30-0.82) K/mm3 Eos # (Auto) (0.04-0.54) K/mm3 Baso # (Auto) (0.01-0.08) K/mm3 Manual Slide Review PT (9.7-12.0) SECONDS INR APTT (21.7-31.4) SECONDS Sodium (136-145) mEq/L Potassium (3.5-5.1) mEq/L Chloride (98-107) mEq/L Carbon Dioxide (21-32) mEq/L Anion Gap (5-15) BUN (7-18) mg/dL Creatinine (0.7-1.3) mg/dL Est Cr Clr Drug Dosing mL/min Estimated GFR (MDRD) (>60) mL/min BUN/Creatinine Ratio (14-18) Glucose (70-99) mg/dL Calcium (8.5-10.1) mg/dL Magnesium (1.8-2.4) mg/dL Total Bilirubin (0.2-1.0) mg/dL AST (15-37) U/L ALT (16-63) U/L Alkaline Phosphatase (46-116) U/L C-Reactive Protein (<1.0) mg/dL NT-Pro-B Natriuret Pep 124 (0-450) pg/mL Total Protein (6.4-8.2) g/dl Albumin (3.4-5.0) g/dl Globulin gm/dL Albumin/Globulin Ratio (1-2) Lipase (73-393) U/L Urine Color Dark yellow (Yellow) Urine Appearance Clear (Clear) Urine pH 5.5 (5.0-8.0) Ur Specific [place] 1.025 (1.005-1.030) Urine Protein 1+ H (Negative) Urine Glucose (UA) Negative (Negative) Urine Ketones Negative (Negative) Urine Occult Blood Negative (Negative) Urine Nitrite Negative (Negative) Urine Bilirubin 1+ H (Negative) Urine Urobilinogen 0.2 (0.2-1.0) Ur Leukocyte Esterase Trace H (Negative) U Hyaline Cast (Auto) 0-5 (0-5) /lpf Urine RBC 0-5 (0-5) /hpf Urine WBC 0-5 (0-5) /hpf Ur Squamous Epith Cells 0-5 (0-5) /hpf Urine Bacteria Few (FEW) /hpf Urine Mucus Few (FEW) /hpf C.difficile 027-NAP1-B1 Presumptive negative C. difficile Tox (PCR) Positive H SARS-CoV-2 RNA (DANELLE) (NEGATIVE) 03/09/21 Range/Units 10:00 WBC (4.23-9.07) K/mm3 RBC (4.63-6.08) M/mm3 Hgb (13.7-17.5) gm/dl Hct (40.1-51.0) % MCV (79.0-92.2) fl MCH (25.7-32.2) pg MCHC (32.2-35.5) g/dl RDW Std Deviation (35.1-43.9) fL Plt Count (163-337) K/mm3 MPV (9.4-12.3) fl Neut % (Auto) (34.0-67.9) % Lymph % (Auto) (21.8-53.1) % Centre % (Auto) (5.3-12.2) % Eos % (Auto) (0.8-7.0) Baso % (Auto) (0.1-1.2) % Neut # (Auto) (1.78-5.38) K/mm3 Lymph # (Auto) (1.32-3.57) K/mm3 Centre # (Auto) (0.30-0.82) K/mm3 Eos # (Auto) (0.04-0.54) K/mm3 Baso # (Auto) (0.01-0.08) K/mm3 Manual Slide Review PT (9.7-12.0) SECONDS INR APTT (21.7-31.4) SECONDS Sodium (136-145) mEq/L Potassium (3.5-5.1) mEq/L Chloride (98-107) mEq/L Carbon Dioxide (21-32) mEq/L Anion Gap (5-15) BUN (7-18) mg/dL Creatinine (0.7-1.3) mg/dL Est Cr Clr Drug Dosing mL/min Estimated GFR (MDRD) (>60) mL/min BUN/Creatinine Ratio (14-18) Glucose (70-99) mg/dL Calcium (8.5-10.1) mg/dL Magnesium (1.8-2.4) mg/dL Total Bilirubin (0.2-1.0) mg/dL AST (15-37) U/L ALT (16-63) U/L Alkaline Phosphatase (46-116) U/L C-Reactive Protein (<1.0) mg/dL NT-Pro-B Natriuret Pep (0-450) pg/mL Total Protein (6.4-8.2) g/dl Albumin (3.4-5.0) g/dl Globulin gm/dL Albumin/Globulin Ratio (1-2) Lipase (73-393) U/L Urine Color (Yellow) Urine Appearance (Clear) Urine pH (5.0-8.0) Ur Specific [place] (1.005-1.030) Urine Protein (Negative) Urine Glucose (UA) (Negative) Urine Ketones (Negative) Urine Occult Blood (Negative) Urine Nitrite (Negative) Urine Bilirubin (Negative) Urine Urobilinogen (0.2-1.0) Ur Leukocyte Esterase (Negative) U Hyaline Cast (Auto) (0-5) /lpf Urine RBC (0-5) /hpf Urine WBC (0-5) /hpf Ur Squamous Epith Cells (0-5) /hpf Urine Bacteria (FEW) /hpf Urine Mucus (FEW) /hpf C.difficile 027-NAP1-B1 C. difficile Tox (PCR) SARS-CoV-2 RNA (DANELLE) Negative (NEGATIVE) Meds: Medications Generic Name Dose Route Start Last Admin Trade Name Freq PRN Reason Stop Dose Admin Dextrose/Sodium Chloride 1,000 mls @ 250 mls/hr 03/09/21 07:15 03/09/21 07:29 Dextrose 5%-Normal Saline IV 250 mls/hr ASDIRECTED CHEO Administration Magnesium Sulfate 4 gm/ Premix 50 mls @ 12.5 mls/hr 03/09/21 09:49 03/09/21 09:58 IV 03/09/21 13:48 12.5 mls/hr ONETIME ONE Administration Potassium Chloride 10 meq/ 100 mls @ 100 mls/hr 03/09/21 10:00 03/09/21 09:57 Premix IV 03/09/21 12:59 100 mls/hr Q1H CHEO Administration Discontinued Medications Generic Name Dose Route Start Last Admin Trade Name Freq PRN Reason Stop Dose Admin Hydromorphone HCl 0.5 mg 03/09/21 07:14 03/09/21 07:30 Hydromorphone 0.5 Mg/0.5 Ml Syringe IVPUSH 03/09/21 07:15 0.5 mg ONETIME ONE Administration Metoclopramide HCl 5 mg 03/09/21 07:14 03/09/21 07:30 Metoclopramide 10 Mg/2 Ml Sdv IVPUSH 03/09/21 07:15 5 mg ONETIME ONE Administration - Radiology Interpretation Free Text/Narrative:: 80-year-old male presents to the ED for evaluation of significant diarrhea with 10-15 loose stools per day x2-1/2 days. No blood. Patient underwent a lower lumbar spine fusion process with discectomy at multiple levels on February 19 and received antibiotics preoperatively. He was not sent home with antibiotics however. They really have not left the house so there is very little chance of foodborne illness. His also did not get sick. He has no fever or chills. Intermittent strong lower abdominal cramping pain with urge to defecate which makes it almost impossible for get him to get to the bathroom. He has very limited mobility due to lumbar spine surgery and fusion. Currently not taking any narcotics for pain relief. Using Tylenol and a little bit of Motrin. Plan routine labs to be done. Stools will be collected for C. difficile and culture x2. CT of the abdomen and pelvis will be performed with oral contrast only. IV will be D5 normal saline at 250 mils per hour. Given Dilaudid 0.5 mg IV for pain relief as oral contrast is going to make the abdominal pain worse. Reglan 5 mg IV for nausea relief. - Re-Assessments/Exams Free Text/Narrative Re-Assessment/Exam: 03/09/21 08:50 White count is 7.14 with 71% neutrophils. Hemoglobin is 12.8 with hematocrit of 38.4. MCV is elevated at 109.7. Platelet count 188,000. The smear reveals 3+ macrocytosis, 1+ polychromasia. PT is 12.2 with an INR of 1.14. PTT is 29.3 slightly elevated. Sodium 141 potassium slightly low at 3.2. Chloride 101 with a bicarb of 28. Anion gap is 15.2. BUN is 14 with a creatinine of 1.2 and a GFR of 58. BUN/creatinine ratio is 11.7. Glucose 130. Calcium 9.2. Magnesium is quite low at 1.3. Total bilirubin is 2.0 AST is 28 with an ALT of 20 alk phosphatase is 92. C-reactive protein elevated at 3.3. BNP 124. Total protein 7.6 with an albumin fraction slightly low at 3.2. Serum lipase is 86. 03/09/21 09:03 CT of the abdomen and pelvis has been performed with oral contrast. Prior CT abdomen and pelvis study of May 2020 was used for comparison purposes. Liver shows irregular surface contour most likely representing cirrhosis. No focal parenchymal abnormality is appreciated within the noncontrast liver. Spleen size is within normal limits. Adrenal gland shows no nodules. No abnormalities appreciated within the pancreas. Multiple small calcified gallstones are seen within the gallbladder. Right kidney shows several small cyst. Small nonobstructing calculi present within the left renal parenchyma. No ureteral dilatation or ureteral stone is appreciated. Abdominal aorta shows diffuse atherosclerotic calcification. Mid to distal aorta measures up to 4.0 cm in size. Ectasia is noted of both common iliac arteries with atherosclerotic calcification. These findings are fairly stable from prior CT exam. Pelvis shows radiation implant seeds within the prostate gland. No retroperitoneal adenopathy, mesenteric abnormalities or pelvic adenopathy is noted. Small fat-containing left inguinal hernia is noted. Diverticula are seen within the sigmoid colon. Bone window settings were reviewed which show a left total hip prosthesis.. Prior lumbar spine surgery is noted with transpedicle screws between L3 and L5 which affects a compression deformity with an L4. These findings are an interval change from previous CT exam. 03/09/21 09:35: Patient will be ordered magnesium supplementation and will receive 4 g over the next 4 hours. Potassium supplementation has also been ordered with a K rider of 10 mEq IV x3 1/h. I have spoken with on-call hospitalist Dr. Mike Thorne and he will see the patient in the emergency department. As so far the patient has not yet had a bowel movement but I have strong suspicion that he has contracted C. difficile possibly antibiotic induced. 03/09/21 10:39 Urinalysis shows 1+ proteinuria 1+ bilirubin and trace of leukocyte esterase. The urine micro does not show any signs of white cells or red cells. COVID-19 screen is pending 03/09/21 10:48 COVID-19 screen came back negative. The patient still has tested positive presumptively for C. difficile. He will therefore be given an initial dose of Flagyl 500 mg IV. Departure - Departure Time of Disposition: 10:39 Disposition: Refer to Observation Condition: Fair Clinical Impression: Status post lumbar spinal fusion, Severe diarrhea, Hypomagnesemia, Hypokalemia due to excessive gastrointestinal loss of potassium, Impaired mobility and activities of daily living, Clostridium difficile enteritis - Discharge Information *PRESCRIPTION DRUG MONITORING PROGRAM REVIEWED*: Not Applicable *COPY OF PRESCRIPTION DRUG MONITORING REPORT IN PATIENT ANSHUL: Not Applicable Referrals: Anahy Hooper MD [Primary Care Provider] - Forms: ED Department Discharge Sepsis Event Note (ED) - Evaluation Sepsis Screening Result: No Definite Risk - Focused Exam Vital Signs: Vital Signs Temp Pulse Resp BP Pulse Ox 03/09/21 06:53 36.5 C 88 18 114/71 93 L - My Orders Last 24 Hours: My Active Orders 03/09/21 07:15 Dextrose 5%-0.9% NaCl [Dextrose 5%-Normal Saline] 1,000 ml IV ASDIRECTED 03/09/21 09:25 C DIFFICILE TOXIN IMMUNOASSAY [MREF] Stat FECAL LACTOFERRIN [MREF] Stat 03/09/21 09:30 STOOL CULTURE/SHIGA TOXIN [MREF] Stat 03/09/21 09:49 Magnesium Sulfate/Water [Magnesium Sulfate in Water 4 GM/50 ML] 4 gm Premix Bag 1 bag IV ONETIME 03/09/21 10:00 Potassium Chloride [KCl in Water 10 MEQ/100 ML] 10 meq Premix Bag 1 bag IV Q1H 03/09/21 10:36 Admission Status [Patient Status] [ADT] Routine 03/09/21 10:41 EKG Documentation Completion [RC] STAT 03/09/21 10:48 metroNIDAZOLE/Normal Saline [Flagyl in NS 500 MG/100 ML] 500 mg Premix Bag 1 bag IV ONETIME - Assessment/Plan Last 24 Hours: My Active Orders 03/09/21 07:15 Dextrose 5%-0.9% NaCl [Dextrose 5%-Normal Saline] 1,000 ml IV ASDIRECTED 03/09/21 09:25 C DIFFICILE TOXIN IMMUNOASSAY [MREF] Stat FECAL LACTOFERRIN [MREF] Stat 03/09/21 09:30 STOOL CULTURE/SHIGA TOXIN [MREF] Stat 03/09/21 09:49 Magnesium Sulfate/Water [Magnesium Sulfate in Water 4 GM/50 ML] 4 gm Premix B ag 1 bag IV ONETIME 03/09/21 10:00 Potassium Chloride [KCl in Water 10 MEQ/100 ML] 10 meq Premix Bag 1 bag IV Q1H 03/09/21 10:36 Admission Status [Patient Status] [ADT] Routine 03/09/21 10:41 EKG Documentation Completion [RC] STAT 03/09/21 10:48 metroNIDAZOLE/Normal Saline [Flagyl in NS 500 MG/100 ML] 500 mg Premix Bag 1 bag IV ONETIME
--- NOTE | 2021-03-09 08:55 | CT ---
CT abdomen and pelvis Technique: Multiple axial sections were obtained from above the dome of the diaphragm inferiorly through the pubic symphysis. Intravenous and oral contrast were not utilized. Reconstructed coronal and sagittal images were obtained. Comparison: Prior CT abdomen and pelvis study of 06/08/20. Findings: Visualized lung bases show nothing acute. Liver shows irregular surface contour most likely representing cirrhosis. No focal parenchymal abnormality is appreciated within the noncontrast liver. Spleen size is within normal limits. Adrenal glands show no nodule. No abnormality is appreciated within the pancreas. Multiple small calcified gallstones are seen within the gallbladder. Right kidney shows several small cysts. Small nonobstructing calculus is noted within the left kidney. No ureteral dilatation or ureteral stone is appreciated. Abdominal aorta shows diffuse atherosclerotic calcification. Mid to distal aorta measures up to 4.0 cm in size. Ectasia is noted of both common iliac arteries with atherosclerotic calcification. These findings are fairly stable from prior CT exam. Pelvis shows radiation implant seeds within the prostate gland. No retroperitoneal adenopathy, mesenteric abnormalities or pelvic adenopathy is seen. Small fat-containing left inguinal hernia is noted. Diverticuli are seen within the sigmoid colon. Bone window settings were reviewed which show a left hip prosthesis. Prior lumbar spine surgery is noted with transpedicle screws between L3 and L5 which affects a compression deformity within L4. These findings are an interval change from prior CT exam. Impression: 1. 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 These findings are fairly stable from prior CT exam with maximum AP dimension being around 4.0 cm. 2. Probable cirrhosis within the liver. 3. Small calcified gallstones within the gallbladder. 4. Prior lumbar spine surgery around a compression deformity of L4 which is an interval change from prior exam. 5. Other findings believed to be incidental as noted above. Diagnostic code #3
[2021-03-09] MEDS ORDERED: Magnesium Sulfate/Water 4 GM in Premix Bag 1 BAG IV ONE (09:49)
[2021-03-09] MEDS: Potassium Chloride 10 MEQ in Premix Bag 1 BAG IV SCH ×3 (09:57→12:53)
[2021-03-09] MEDS ORDERED: metroNIDAZOLE/Normal Saline 500 MG in Premix Bag 1 BAG IV ONE (10:48)
[2021-03-09] MEDS ORDERED: Temazepam 7.5 MG Cap PO PRN (11:39)
[2021-03-09] MEDS ORDERED: Acetaminophen 325 MG Tab PO PRN (11:39)
[2021-03-09] MEDS ORDERED: Ondansetron 4 MG/2 ML SDV IV PRN (11:39)
[2021-03-09] MEDS ORDERED: Ondansetron 4 MG Tab.DIS PO PRN (11:39)
--- NOTE | 2021-03-09 11:39 | PCM.HP.2 ---
H&P History of Present Illness - General Date of Service: 03/09/21 Admit Problem/Dx: Admission Diagnosis/Problem Admission Diagnosis/Problem C. diff enteritis Source of Information: Patient History Limitations: Reports: No Limitations - History of Present Illness Initial Comments - Free Text/Narative: The patient is an 80-year-old gentleman who presents to the emergency room with a complaint of 2 days worth of severe diarrhea. The patient says that the diarrhea has gotten to the point he has been unable to make it to the commode. The patient had spinal fusion surgery in the lumbar area 2 weeks ago. He was given an antibiotic prior to the surgery. He has not been on antibiotics since then. Patient also says that he has been having abdominal pain generalized on t he lateral sides. The patient says that immediately after surgery for approximately 5 days he has had constipation. He is denied any nausea or vomiting. No fever or chills. The patient has had no specific aggravating or relieving factors. The pain is not radiating anywhere. Onset of Symptoms: Reports: Gradual Duration of Symptoms: Reports: Day(s): Location: Reports: Abdomen Quality: Reports: Dull, Pressure Severity: Moderate Improves with: Reports: None Worsens with: Reports: None Context: Reports: Other (Recent lumbar surgery) Associated Symptoms: Reports: Loss of Appetite Lower Abdomen Pain Score (Numeric/FACES): 2 - Related Data Allergies/Adverse Reactions: Allergies Allergy/AdvReac Type Severity Reaction Status Date / Time pravastatin AdvReac Joint Pain Verified 03/09/21 07:03 ropinirole [From Requip] AdvReac Joint Pain Verified 03/09/21 07:03 Home Medications: Home Meds Calcium Carbonate/Vitamin D3 [Calcium 600 + D Tablet] 1 tab PO BID 06/02/15 [History] Tamsulosin [Flomax] 0.4 mg PO DAILY 10/30/15 [History] Furosemide [Lasix] 40 mg PO DAILY #30 tablet 12/19/18 [Rx] Folic Acid 1 mg PO DAILY 03/12/19 [History] Thiamine [Vitamin B-1] 100 mg PO DAILY tablet 03/18/19 [Rx] Aspirin [Halfprin] 81 mg PO DAILY 06/14/19 [History] Ferrous Sulfate [Iron] 325 mg PO DAILY 06/14/19 [History] Lutein/Min/Vit C/Vit E Acetate [Ocuvite Lutein] 1 cap PO DAILY 06/14/19 [History] Metoprolol Tartrate 25 mg PO BID 06/14/19 [History] Multivitamin with Minerals [Multivitamins with Minerals] 1 tab PO DAILY 06/14/19 [History] Omeprazole Magnesium [Prilosec Otc] 40 mg PO BID 06/14/19 [History] Potassium Chloride [Klor-Con M20] 20 meq PO DAILY 06/14/19 [History] Ibuprofen [Motrin Ib] 200 mg PO 06/16/20 [History] Metoprolol Succinate 25 mg PO 06/16/20 [History] Triamcinolone Acetonide [Triamcinolone Acetonide 0.5% Oint] 15 gm .XX 06/16/20 [History] Vit C/E/Zn/Coppr/Lutein/Zeaxan [Preservision Areds 2 Softgel] 1 each PO 06/16/20 [History] Past Medical History HEENT History: Reports: Impaired Vision, Other (See Below) Other HEENT History: Upper partial denture Cardiovascular History: Reports: CAD, Heart Failure, High Cholesterol, Hypertension, Other (See Below) Other Cardiovascular History: AAA (3.8 cm), PSVT, iliac artery aneurysm Respiratory History: Reports: None, Asthma, COPD, Other (See Below) Other Respiratory History: Empyema of pleura Gastrointestinal History: Reports: GERD, Other (See Below) Other Gastrointestinal History: Abnormal liver enzymes Genitourinary History: Reports: Chronic Renal Insuffiency, Retention, Urinary [employer] History: Reports: None Musculoskeletal History: Reports: Gout, Osteoarthritis, Other (See Below) Other Musculoskeletal History: Restless leg syndrome Neurological History: Reports: None Psychiatric History: Reports: Anxiety, Other (See Below) Other Psychiatric History: ETOH abuse (Quit drinking in February 2019) Endocrine/Metabolic History: Reports: None Hematologic History: Reports: Anemia, Blood Transfusion(s) Immunologic History: Reports: None Oncologic (Cancer) History: Reports: Prostate Dermatologic History: Reports: Other (See Below) Other Dermatologic History: Vitiligo - Past Surgical History Head Surgeries/Procedures: Reports: None HEENT Surgical History: Reports: Cataract Surgery Cardiovascular Surgical History: Reports: None Respiratory Surgical History: Reports: None Other Respiratory Surgeries/Procedures: emphyema GI Surgical History: Reports: None Male Surgical History: Reports: None Other Male Surgeries/Procedures: prostate seeds Endocrine Surgical History: Reports: None Neurological Surgical History: Reports: None Musculoskeletal Surgical History: Reports: Other (See Below) Other Musculoskeletal Surgeries/Procedures:: Right TKA (02/2019). spinal fusion 02/19/21 Oncologic Surgical History: Reports: None Dermatological Surgical History: Reports: None Social & Family History - Family History Family Medical History: No Pertinent Family History - Tobacco Use Tobacco Use Status *Q: Former Tobacco User Used Tobacco, but Quit: Yes Month/Year Tobacco Last Used: 22 years ago - Caffeine Use Caffeine Use: Reports: None - Alcohol Use Alcohol Use History: Yes - Recreational Drug Use Recreational Drug Use: No - Living Situation & Occupation Living situation: Reports: Occupation: Retired H&P Review of Systems - Review of Systems: Review Of Systems: See Below General: Reports: No Symptoms HEENT: Reports: No Symptoms Pulmonary: Reports: No Symptoms Cardiovascular: Reports: No Symptoms Gastrointestinal: Reports: Abdominal Pain, Diarrhea Genitourinary: Reports: No Symptoms Musculoskeletal: Reports: No Symptoms Skin: Reports: No Symptoms Psychiatric: Reports: No Symptoms Neurological: Reports: No Symptoms Hematologic/Lymphatic: Reports: No Symptoms Immunologic: Reports: No Symptoms Exam - Exam Exam: See Below - Vital Signs Vital Signs: Last Vital Signs Temp 36.5 C 03/09/21 06:53 Pulse 88 03/09/21 06:53 Resp 18 03/09/21 06:53 BP 114/71 03/09/21 06:53 Pulse Ox 93 L 03/09/21 06:53 Weight: 99.382 kg - Exam Quality Assessment: DVT Prophylaxis. No: Supplemental Oxygen General: Alert, Oriented, Cooperative, Mild Distress HEENT: Conjunctiva Clear, EACs Clear, EOMI, PERRLA. No: Mucosa Moist & Scurry (Very dry) Neck: Supple, Trachea Midline Lungs: Clear to Auscultation, Normal Respiratory Effort Cardiovascular: Regular Rate, Regular Rhythm GI/Abdominal Exam: Soft, No Distention, Tender (Tender left outer edge). No: Normal Bowel Sounds (Hyperactive), Guarding, Rigid, Rebound (Male) Exam: Deferred Rectal (Males) Exam: Deferred Back Exam: No: Normal Inspection (Recent surgery lumbar area) Extremities: Normal Inspection, No Pedal Edema Skin: Warm, Dry, Intact Neurological: Cranial Nerves Intact, Normal Speech Neuro Extensive - Mental Status: Alert, Oriented x3 Psychiatric: Alert, Normal Affect, Normal Mood - Patient Data Lab Results Last 24 hrs: Laboratory Results - last 24 hr 03/09/21 03/09/21 03/09/21 Range/Units 07:31 07:31 07:31 WBC 7.14 (4.23-9.07) K/mm3 RBC 3.50 L (4.63-6.08) M/mm3 Hgb 12.8 L (13.7-17.5) gm/dl Hct 38.4 L (40.1-51.0) % MCV 109.7 H (79.0-92.2) fl MCH 36.6 H (25.7-32.2) pg MCHC 33.3 (32.2-35.5) g/dl RDW Std Deviation 52.0 H (35.1-43.9) fL Plt Count 188 (163-337) K/mm3 MPV 9.2 L (9.4-12.3) fl Neut % (Auto) 71.0 H (34.0-67.9) % Lymph % (Auto) 14.6 L (21.8-53.1) % [place] % (Auto) 13.4 H (5.3-12.2) % Eos % (Auto) 0.6 L (0.8-7.0) Baso % (Auto) 0.3 (0.1-1.2) % Neut # (Auto) 5.07 (1.78-5.38) K/mm3 Lymph # (Auto) 1.04 L (1.32-3.57) K/mm3 [place] # (Auto) 0.96 H (0.30-0.82) K/mm3 Eos # (Auto) 0.04 (0.04-0.54) K/mm3 Baso # (Auto) 0.02 (0.01-0.08) K/mm3 Manual Slide Review Abnormal smear PT 12.2 H (9.7-12.0) SECONDS INR 1.14 APTT 29.3 (21.7-31.4) SECONDS Sodium 141 (136-145) mEq/L Potassium 3.2 L (3.5-5.1) mEq/L Chloride 101 (98-107) mEq/L Carbon Dioxide 28 (21-32) mEq/L Anion Gap 15.2 H (5-15) BUN 14 (7-18) mg/dL Creatinine 1.2 (0.7-1.3) mg/dL Est Cr Clr Drug Dosing 49.85 mL/min Estimated GFR (MDRD) 58 (>60) mL/min BUN/Creatinine Ratio 11.7 L (14-18) Glucose 130 H (70-99) mg/dL Calcium 9.2 (8.5-10.1) mg/dL Magnesium 1.3 L (1.8-2.4) mg/dL Total Bilirubin 2.0 H (0.2-1.0) mg/dL AST 28 (15-37) U/L ALT 20 (16-63) U/L Alkaline Phosphatase 92 (46-116) U/L C-Reactive Protein 3.3 H* (<1.0) mg/dL NT-Pro-B Natriuret Pep (0-450) pg/mL Total Protein 7.6 (6.4-8.2) g/dl Albumin 3.2 L (3.4-5.0) g/dl Globulin 4.4 gm/dL Albumin/Globulin Ratio 0.7 L (1-2) Lipase 86 (73-393) U/L Urine Color (Yellow) Urine Appearance (Clear) Urine pH (5.0-8.0) Ur Specific [place] (1.005-1.030) Urine Protein (Negative) Urine Glucose (UA) (Negative) Urine Ketones (Negative) Urine Occult Blood (Negative) Urine Nitrite (Negative) Urine Bilirubin (Negative) Urine Urobilinogen (0.2-1.0) Ur Leukocyte Esterase (Negative) U Hyaline Cast (Auto) (0-5) /lpf Urine RBC (0-5) /hpf Urine WBC (0-5) /hpf Ur Squamous Epith Cells (0-5) /hpf Urine Bacteria (FEW) /hpf Urine Mucus (FEW) /hpf C.difficile 027-NAP1-B1 C. difficile Tox (PCR) SARS-CoV-2 RNA (DANELLE) (NEGATIVE) 03/09/21 03/09/21 03/09/21 Range/Units 07:31 09:25 09:30 WBC (4.23-9.07) K/mm3 RBC (4.63-6.08) M/mm3 Hgb (13.7-17.5) gm/dl Hct (40.1-51.0) % MCV (79.0-92.2) fl MCH (25.7-32.2) pg MCHC (32.2-35.5) g/dl RDW Std Deviation (35.1-43.9) fL Plt Count (163-337) K/mm3 MPV (9.4-12.3) fl Neut % (Auto) (34.0-67.9) % Lymph % (Auto) (21.8-53.1) % [place] % (Auto) (5.3-12.2) % Eos % (Auto) (0.8-7.0) Baso % (Auto) (0.1-1.2) % Neut # (Auto) (1.78-5.38) K/mm3 Lymph # (Auto) (1.32-3.57) K/mm3 [place] # (Auto) (0.30-0.82) K/mm3 Eos # (Auto) (0.04-0.54) K/mm3 Baso # (Auto) (0.01-0.08) K/mm3 Manual Slide Review PT (9.7-12.0) SECONDS INR APTT (21.7-31.4) SECONDS Sodium (136-145) mEq/L Potassium (3.5-5.1) mEq/L Chloride (98-107) mEq/L Carbon Dioxide (21-32) mEq/L Anion Gap (5-15) BUN (7-18) mg/dL Creatinine (0.7-1.3) mg/dL Est Cr Clr Drug Dosing mL/min Estimated GFR (MDRD) (>60) mL/min BUN/Creatinine Ratio (14-18) Glucose (70-99) mg/dL Calcium (8.5-10.1) mg/dL Magnesium (1.8-2.4) mg/dL Total Bilirubin (0.2-1.0) mg/dL AST (15-37) U/L ALT (16-63) U/L Alkaline Phosphatase (46-116) U/L C-Reactive Protein (<1.0) mg/dL NT-Pro-B Natriuret Pep 124 (0-450) pg/mL Total Protein (6.4-8.2) g/dl Albumin (3.4-5.0) g/dl Globulin gm/dL Albumin/Globulin Ratio (1-2) Lipase (73-393) U/L Urine Color Dark yellow (Yellow) Urine Appearance Clear (Clear) Urine pH 5.5 (5.0-8.0) Ur Specific [place] 1.025 (1.005-1.030) Urine Protein 1+ H (Negative) Urine Glucose (UA) Negative (Negative) Urine Ketones Negative (Negative) Urine Occult Blood Negative (Negative) Urine Nitrite Negative (Negative) Urine Bilirubin 1+ H (Negative) Urine Urobilinogen 0.2 (0.2-1.0) Ur Leukocyte Esterase Trace H (Negative) U Hyaline Cast (Auto) 0-5 (0-5) /lpf Urine RBC 0-5 (0-5) /hpf Urine WBC 0-5 (0-5) /hpf Ur Squamous Epith Cells 0-5 (0-5) /hpf Urine Bacteria Few (FEW) /hpf Urine Mucus Few (FEW) /hpf C.difficile 027-NAP1-B1 Presumptive negative C. difficile Tox (PCR) Positive H SARS-CoV-2 RNA (DANELLE) (NEGATIVE) 03/09/21 Range/Units 10:00 WBC (4.23-9.07) K/mm3 RBC (4.63-6.08) M/mm3 Hgb (13.7-17.5) gm/dl Hct (40.1-51.0) % MCV (79.0-92.2) fl MCH (25.7-32.2) pg MCHC (32.2-35.5) g/dl RDW Std Deviation (35.1-43.9) fL Plt Count (163-337) K/mm3 MPV (9.4-12.3) fl Neut % (Auto) (34.0-67.9) % Lymph % (Auto) (21.8-53.1) % [place] % (Auto) (5.3-12.2) % Eos % (Auto) (0.8-7.0) Baso % (Auto) (0.1-1.2) % Neut # (Auto) (1.78-5.38) K/mm3 Lymph # (Auto) (1.32-3.57) K/mm3 [place] # (Auto) (0.30-0.82) K/mm3 Eos # (Auto) (0.04-0.54) K/mm3 Baso # (Auto) (0.01-0.08) K/mm3 Manual Slide Review PT (9.7-12.0) SECONDS INR APTT (21.7-31.4) SECONDS Sodium (136-145) mEq/L Potassium (3.5-5.1) mEq/L Chloride (98-107) mEq/L Carbon Dioxide (21-32) mEq/L Anion Gap (5-15) BUN (7-18) mg/dL Creatinine (0.7-1.3) mg/dL Est Cr Clr Drug Dosing mL/min Estimated GFR (MDRD) (>60) mL/min BUN/Creatinine Ratio (14-18) Glucose (70-99) mg/dL Calcium (8.5-10.1) mg/dL Magnesium (1.8-2.4) mg/dL Total Bilirubin (0.2-1.0) mg/dL AST (15-37) U/L ALT (16-63) U/L Alkaline Phosphatase (46-116) U/L C-Reactive Protein (<1.0) mg/dL NT-Pro-B Natriuret Pep (0-450) pg/mL Total Protein (6.4-8.2) g/dl Albumin (3.4-5.0) g/dl Globulin gm/dL Albumin/Globulin Ratio (1-2) Lipase (73-393) U/L Urine Color (Yellow) Urine Appearance (Clear) Urine pH (5.0-8.0) Ur Specific [place] (1.005-1.030) Urine Protein (Negative) Urine Glucose (UA) (Negative) Urine Ketones (Negative) Urine Occult Blood (Negative) Urine Nitrite (Negative) Urine Bilirubin (Negative) Urine Urobilinogen (0.2-1.0) Ur Leukocyte Esterase (Negative) U Hyaline Cast (Auto) (0-5) /lpf Urine RBC (0-5) /hpf Urine WBC (0-5) /hpf Ur Squamous Epith Cells (0-5) /hpf Urine Bacteria (FEW) /hpf Urine Mucus (FEW) /hpf C.difficile 027-NAP1-B1 C. difficile Tox (PCR) SARS-CoV-2 RNA (DANELLE) Negative (NEGATIVE) Result Diagrams: 03/09/21 07:31 03/09/21 07:31 Sepsis Event Note - Evaluation Sepsis Screening Result: No Definite Risk - Focused Exam Vital Signs: Vital Signs Temp Pulse Resp BP Pulse Ox 03/09/21 06:53 36.5 C 88 18 114/71 93 L - Problem List (1) Clostridium difficile enteritis SNOMED Code(s): 821711084 ICD Code: A04.72 - ENTEROCOLITIS D/T CLOSTRIDIUM DIFFICILE, NOT SPCF RECUR Status: Acute Priority: High Current Visit: Yes (2) Hypomagnesemia SNOMED Code(s): 021989803 ICD Code: E83.42 - HYPOMAGNESEMIA Status: Acute Priority: High Current Visit: Yes Problem Details: GI loss (3) Status post lumbar spinal fusion SNOMED Code(s): 54910958885199, 74415810, 22680211324239 ICD Code: Z98.1 - ARTHRODESIS STATUS Status: Acute Current Visit: Yes (4) Dehydration SNOMED Code(s): 39776861 ICD Code: E86.0 - DEHYDRATION Status: Acute Priority: High Current Visit: Yes Problem List Initiated/Reviewed/Updated: Yes Orders Last 24hrs: Active Orders 24 hr Category Date Time Status Admission Status [Patient Status] [ADT] Routine ADT 03/09/21 10:36 Active EKG Documentation Completion [RC] STAT Care 03/09/21 10:41 Active C DIFFICILE TOXIN IMMUNOASSAY [MREF] Stat Lab 03/09/21 09:25 Received FECAL LACTOFERRIN [MREF] Stat Lab 03/09/21 09:25 Received STOOL CULTURE/SHIGA TOXIN [MREF] Stat Lab 03/09/21 09:30 Ordered Dextrose 5%-0.9% NaCl [Dextrose 5%-Normal Saline] 1,000 Med 03/09/21 07:15 Active ml IV ASDIRECTED Magnesium Sulfate/Water [Magnesium Sulfate in Water 4 Med 03/09/21 09:49 Active GM/50 ML] 4 gm Premix Bag 1 bag IV ONETIME Potassium Chloride [KCl in Water 10 MEQ/100 ML] 10 meq Med 03/09/21 10:00 Active Premix Bag 1 bag IV Q1H metroNIDAZOLE/Normal Saline [Flagyl in NS 500 MG/100 ML Med 03/09/21 10:48 Active ] 500 mg Premix Bag 1 bag IV ONETIME Medication Orders Dextrose/Sodium Chloride (Dextrose 5%-Normal Saline) 1,000 mls @ 250 mls/hr IV ASDIRECTED PENDING SALE TO [facility] Last Admin: 03/09/21 07:29 Dose: 250 mls/hr Documented by: JOSE Magnesium Sulfate 4 gm/ Premix 50 mls @ 12.5 mls/hr IV ONETIME ONE Stop: 03/09/21 13:48 Last Admin: 03/09/21 09:58 Dose: 12.5 mls/hr Documented by: JOSE Potassium Chloride 10 meq/ (Premix) 100 mls @ 100 mls/hr IV Q1H PENDING SALE TO [facility] Stop: 03/09/21 12:59 Last Admin: 03/09/21 11:00 Dose: 100 mls/hr Documented by: Infusion: 03/09/21 10:57 Dose: 100 mls/hr Documented by: Admin: 03/09/21 09:57 Dose: 100 mls/hr Documented by: JOSE Metronidazole 500 mg/ Premix 100 mls @ 100 mls/hr IV ONETIME ONE Stop: 03/09/21 11:47 Last Admin: 03/09/21 11:04 Dose: 100 mls/hr Documented by: JOSE Assessment/Plan Comment:: The patient is an 80-year-old gentleman who has been admitted to observation due to C. difficile colitis. Stool samples were positive for C. difficile. I placed the patient on vancomycin 250 mg p.o. 4 times daily as well as Questran 4 g p.o. twice daily to help with secretory diarrhea. The patient is also dehydrated and he will be maintained on IV normal saline at 100 mL/h. The patient's electrolytes in particular magnesium will be replaced with 2 g magnesium and water. These will be monitored and replaced as necessary. Because of the patient's recent back surgery, 2 weeks ago, pharmacological DVT prophylaxis is contraindicated. The patient has SCDs ordered. The patient also have a regular diet as tolerated. I have also ordered PT and OT to assess the patient. Repeat laboratory studies have been ordered for the morning. The patient has been encouraged to ambulate. - Mortality Measure Prognosis:: Good
[2021-03-09] MEDS ORDERED: Magnesium Sulfate/Water 2 GM in Premix Bag 1 BAG IV ONE ×2 (11:49→12:00)
[2021-03-09] MEDS: Sodium Chloride 0.9% 1,000 ML IV SCH (12:46)
[2021-03-09] MEDS: Vancomycin 250 MG Cap PO SCH ×3 (12:47→20:14)
[2021-03-09] MEDS: Omeprazole 20 MG Cap.CR PO SCH (20:13)
[2021-03-09] MEDS: Tamsulosin 0.4 MG Cap.ER PO SCH (20:14)
[2021-03-09] MEDS ORDERED: Cholestyramine/Sucrose Powder 4 GM Packet PO SCH (21:00)
[2021-03-09] MEDS ORDERED: Aluminum Hydroxide/Magnesium Hydroxide/Simethicone Susp 30 ML Cup PO ONE (22:15)
[2021-03-10] MEDS: Sodium Chloride 0.9% 1,000 ML IV SCH ×2 (00:26→10:22)
[2021-03-10 05:11] VITALS: PULSE 73
[2021-03-10] MEDS ORDERED: Potassium Chloride 20 MEQ Tab.ER PO ONE (07:00)
[2021-03-10] MEDS ORDERED: Vancomycin 250 MG Cap PO SCH (07:45)
[2021-03-10] MEDS ORDERED: Cholestyramine/Sucrose Powder 4 GM Packet PO SCH (08:00)
--- NOTE | 2021-03-10 08:20 | PCM.DCSUM1 ---
Discharge Summary - Hospital Course Free Text/Narrative:: The patient was admitted for C. difficile enteritis. Positive stool testing. Diagnosis: Stroke: No - Discharge Data Discharge Date: 03/10/21 Discharge Disposition: Home, Self-Care 01 Condition: Good - Referral to Home Health Primary Care Physician: Anahy Hooper MD - Discharge Diagnosis/Problem(s) (1) Clostridium difficile enteritis SNOMED Code(s): 528664671 ICD Code: A04.72 - ENTEROCOLITIS D/T CLOSTRIDIUM DIFFICILE, NOT SPCF RECUR Status: Acute Priority: High (2) Hypomagnesemia SNOMED Code(s): 231288148 ICD Code: E83.42 - HYPOMAGNESEMIA Status: Acute Priority: High Problem Details: GI loss (3) Status post lumbar spinal fusion SNOMED Code(s): 50220795494017, 61337142, 88604819415140 ICD Code: Z98.1 - ARTHRODESIS STATUS Status: Acute (4) Dehydration SNOMED Code(s): 61488719 ICD Code: E86.0 - DEHYDRATION Status: Resolved Priority: High - Patient Summary/Data Consults: Consultations 03/09/21 11:39 OT Evaluation and Treatment [CONS] Routine PT Evaluation and Treatment [CONS] Routine Hospital Course: The patient is an 80-year-old gentleman who presents to the emergency room with a complaint of 2 days worth of severe diarrhea. The patient says that the diarrhea has gotten to the point he has been unable to make it to the commode. The patient had spinal fusion surgery in the lumbar area 2 weeks ago. He was given an antibiotic prior to the surgery. He has not been on antibiotics since then. Patient also says that he has been having abdominal pain generalized on the lateral sides. The patient also had clinical indications of dehydration which was treated with aggressive fluid resuscitation. The patient also had hypomagnesemia with hypokalemia and this was due to GI loss. His electrolytes were replaced. He had been noted to have concentrated urine. The patient also had pharmacological DVT prophylaxis which was contraindicated due to his spinal fusion surgery 2 weeks ago. Overall, the patient was admitted and he was treated initially with vancomycin p.o. 250 mg 4 times daily along with Questran 4 g p.o. twice daily and this had improved the patient's symptoms. The patient has been recommended to continue with p.o. vancomycin for at least another 10 days. After observation the patient had improved to the point he had no pain. He was having formed stools. The patient also has been tolerating his diet. Of incidental note was the patient did have a CT scan of his abdomen which showed evidence of cirrhosis of the liver without ascites and the patient seemed to be aware of this. The patient has been recommended to continue his diet as tolerated he also has been recommended to continue with activity as tolerated. The patient is also to follow-up with his primary care physician. The patient has been hemodynamically stable and he has been discharged from hospitalization with the recommendations listed above. - Patient Instructions Diet: Heart Healthy Diet Activity: As Tolerated Wound/Incision Care: Keep Operative Site/Wound Site Clean and Dry Notify Provider of: Fever, Increased Pain - Discharge Plan *PRESCRIPTION DRUG MONITORING PROGRAM REVIEWED*: No *COPY OF PRESCRIPTION DRUG MONITORING REPORT IN PATIENT ANSHUL: No Prescriptions/Med Rec: Cholestyramine/Sucrose [Cholestyramine] 4 gm PO 0800,1700 #10 packet Vancomycin [Vancomycin Cap] 250 mg PO 0700,1200,1600,2200 #40 cap Home Medications: Home Meds Calcium Carbonate/Vitamin D3 [Calcium 600 + D Tablet] 1 tab PO DAILY 06/02/15 [History] Tamsulosin [Flomax] 0.4 mg PO BID 10/30/15 [History] Furosemide [Lasix] 40 mg PO DAILY #30 tablet 12/19/18 [Rx] Folic Acid 400 mcg PO DAILY 03/12/19 [History] Thiamine [Vitamin B-1] 100 mg PO DAILY tablet 03/18/19 [Rx] Aspirin [Halfprin] 81 mg PO DAILY 06/14/19 [History] Ferrous Sulfate [Iron] 325 mg PO DAILY 06/14/19 [History] Metoprolol Tartrate 50 mg PO DAILY 06/14/19 [History] Multivitamin with Minerals [Multivitamins with Minerals] 1 tab PO DAILY 06/14/19 [History] Omeprazole Magnesium [Prilosec Otc] 20 mg PO BID 06/14/19 [History] Ibuprofen [Motrin Ib] 200 mg PO Q4HR PRN 06/16/20 [History] Vit C/E/Zn/Coppr/Lutein/Zeaxan [Preservision Areds 2 Softgel] 1 each PO DAILY 06/16/20 [History] Cholestyramine/Sucrose [Cholestyramine] 4 gm PO 0800,1700 #10 packet 03/10/21 [Rx] Vancomycin [Vancomycin Cap] 250 mg PO 0700,1200,1600,2200 #40 cap 03/10/21 [Rx] Oxygen Therapy Mode: Room Air Patient Handouts: Chronic Obstructive Pulmonary Disease Exacerbation, Clostridioides Difficile Infection, [id number] Forms: ED Department Discharge Referrals: Anahy Hooper MD [Primary Care Provider] - 03/17/21 9:00 am (check in at 8:40 ) - Discharge Summary/Plan Comment DC Time >30 min.: Yes - General Info Date of Service: 03/10/21 Admission Dx/Problem (Free Text: Admission Diagnosis/Problem Admission Diagnosis/Problem C. diff Colitis Subjective Update: Overall, the patient is doing better. He is denied any pain. His stools are formed. The patient says that he can go home. Functional Status: Reports: Pain Controlled, Tolerating Diet - Review of Systems General: Reports: No Symptoms HEENT: Reports: No Symptoms Pulmonary: Reports: No Symptoms Cardiovascular: Reports: No Symptoms Gastrointestinal: Reports: No Symptoms Genitourinary: Reports: No Symptoms Musculoskeletal: Reports: No Symptoms Skin: Reports: No Symptoms Neurological: Reports: No Symptoms Psychiatric: Reports: No Symptoms - Patient Data Vitals - Most Recent: Last Vital Signs Temp 36.9 C 03/10/21 05:02 Pulse 73 03/10/21 05:02 Resp 16 03/10/21 05:02 BP 100/52 L 03/10/21 05:02 Pulse Ox 90 L 03/10/21 05:02 Weight - Most Recent: 98.566 kg I&O - Last 24 hours: Intake & Output 03/09/21 03/10/21 03/10/21 22:59 06:59 14:59 Intake Total 2082 1421 Output Total 300 600 Balance 1788 821 Lab Results - Last 24 hrs: Laboratory Results - last 24 hr 03/09/21 03/09/21 03/09/21 Range/Units 07:31 09:25 09:30 WBC (4.23-9.07) K/mm3 RBC (4.63-6.08) M/mm3 Hgb (13.7-17.5) gm/dl Hct (40.1-51.0) % MCV (79.0-92.2) fl MCH (25.7-32.2) pg MCHC (32.2-35.5) g/dl RDW Std Deviation (35.1-43.9) fL Plt Count (163-337) K/mm3 MPV (9.4-12.3) fl Neut % (Auto) (34.0-67.9) % Lymph % (Auto) (21.8-53.1) % [place] % (Auto) (5.3-12.2) % Eos % (Auto) (0.8-7.0) Baso % (Auto) (0.1-1.2) % Neut # (Auto) (1.78-5.38) K/mm3 Lymph # (Auto) (1.32-3.57) K/mm3 [place] # (Auto) (0.30-0.82) K/mm3 Eos # (Auto) (0.04-0.54) K/mm3 Baso # (Auto) (0.01-0.08) K/mm3 Manual Slide Review PT 12.2 H (9.7-12.0) SECONDS INR 1.14 APTT 29.3 (21.7-31.4) SECONDS Sodium (136-145) mEq/L Potassium (3.5-5.1) mEq/L Chloride (98-107) mEq/L Carbon Dioxide (21-32) mEq/L Anion Gap (5-15) BUN (7-18) mg/dL Creatinine (0.7-1.3) mg/dL Est Cr Clr Drug Dosing mL/min Estimated GFR (MDRD) (>60) mL/min BUN/Creatinine Ratio (14-18) Glucose (70-99) mg/dL Calcium (8.5-10.1) mg/dL Magnesium (1.8-2.4) mg/dL Total Bilirubin (0.2-1.0) mg/dL AST (15-37) U/L ALT (16-63) U/L Alkaline Phosphatase (46-116) U/L Total Protein (6.4-8.2) g/dl Albumin (3.4-5.0) g/dl Globulin gm/dL Albumin/Globulin Ratio (1-2) Urine Color Dark yellow (Yellow) Urine Appearance Clear (Clear) Urine pH 5.5 (5.0-8.0) Ur Specific [place] 1.025 (1.005-1.030) Urine Protein 1+ H (Negative) Urine Glucose (UA) Negative (Negative) Urine Ketones Negative (Negative) Urine Occult Blood Negative (Negative) Urine Nitrite Negative (Negative) Urine Bilirubin 1+ H (Negative) Urine Urobilinogen 0.2 (0.2-1.0) Ur Leukocyte Esterase Trace H (Negative) U Hyaline Cast (Auto) 0-5 (0-5) /lpf Urine RBC 0-5 (0-5) /hpf Urine WBC 0-5 (0-5) /hpf Ur Squamous Epith Cells 0-5 (0-5) /hpf Urine Bacteria Few (FEW) /hpf Urine Mucus Few (FEW) /hpf C.difficile 027-NAP1-B1 Presumptive negative C. difficile Tox (PCR) Positive H SARS-CoV-2 RNA (DANELLE) (NEGATIVE) 03/09/21 03/10/21 03/10/21 Range/Units 10:00 04:50 04:50 WBC 5.67 (4.23-9.07) K/mm3 RBC 2.92 L (4.63-6.08) M/mm3 Hgb 10.6 L D (13.7-17.5) gm/dl Hct 32.3 L (40.1-51.0) % MCV 110.6 H (79.0-92.2) fl MCH 36.3 H (25.7-32.2) pg MCHC 32.8 (32.2-35.5) g/dl RDW Std Deviation 51.2 H (35.1-43.9) fL Plt Count 154 L (163-337) K/mm3 MPV 9.4 (9.4-12.3) fl Neut % (Auto) 62.9 (34.0-67.9) % Lymph % (Auto) 21.9 (21.8-53.1) % [place] % (Auto) 13.2 H (5.3-12.2) % Eos % (Auto) 1.6 (0.8-7.0) Baso % (Auto) 0.2 (0.1-1.2) % Neut # (Auto) 3.57 (1.78-5.38) K/mm3 Lymph # (Auto) 1.24 L (1.32-3.57) K/mm3 [place] # (Auto) 0.75 (0.30-0.82) K/mm3 Eos # (Auto) 0.09 (0.04-0.54) K/mm3 Baso # (Auto) 0.01 (0.01-0.08) K/mm3 Manual Slide Review Abnormal smear PT (9.7-12.0) SECONDS INR APTT (21.7-31.4) SECONDS Sodium 140 (136-145) mEq/L Potassium 3.3 L (3.5-5.1) mEq/L Chloride 104 (98-107) mEq/L Carbon Dioxide 27 (21-32) mEq/L Anion Gap 12.3 (5-15) BUN 10 (7-18) mg/dL Creatinine 0.9 (0.7-1.3) mg/dL Est Cr Clr Drug Dosing 66.47 mL/min Estimated GFR (MDRD) > 60 (>60) mL/min BUN/Creatinine Ratio 11.1 L (14-18) Glucose 127 H (70-99) mg/dL Calcium 8.0 L (8.5-10.1) mg/dL Magnesium 1.9 (1.8-2.4) mg/dL Total Bilirubin 1.6 H (0.2-1.0) mg/dL AST 19 (15-37) U/L ALT 15 L (16-63) U/L Alkaline Phosphatase 74 (46-116) U/L Total Protein 6.3 L (6.4-8.2) g/dl Albumin 2.5 L (3.4-5.0) g/dl Globulin 3.8 gm/dL Albumin/Globulin Ratio 0.7 L (1-2) Urine Color (Yellow) Urine Appearance (Clear) Urine pH (5.0-8.0) Ur Specific [place] (1.005-1.030) Urine Protein (Negative) Urine Glucose (UA) (Negative) Urine Ketones (Negative) Urine Occult Blood (Negative) Urine Nitrite (Negative) Urine Bilirubin (Negative) Urine Urobilinogen (0.2-1.0) Ur Leukocyte Esterase (Negative) U Hyaline Cast (Auto) (0-5) /lpf Urine RBC (0-5) /hpf Urine WBC (0-5) /hpf Ur Squamous Epith Cells (0-5) /hpf Urine Bacteria (FEW) /hpf Urine Mucus (FEW) /hpf C.difficile 027-NAP1-B1 C. difficile Tox (PCR) SARS-CoV-2 RNA (DANELLE) Negative (NEGATIVE) MATT Results - Last 24 hrs: Microbiology 03/09/21 09:25 Stool Lactoferrin - Final Stool / Feces Med Orders - Current: Current Medications Acetaminophen (Acetaminophen 325 Mg Tab) 650 mg PO Q4H PRN PRN Reason: Pain (Mild 1-3)/fever Aspirin (Aspirin 81 Mg Tab.Ec) 81 mg PO DAILY [facility] Calcium Carbonate (Calcium Carbonate/Vitamin D3 600 Mg-200 Units Tab) 1 tab PO DAILY [facility] Cholestyramine Resin (Cholestyramine/Sucrose Powder 4 Gm Packet) 4 gm PO 0800,1700 [facility] Ferrous Sulfate (Ferrous Sulfate 324 Mg Tab.Ec) 324 mg PO DAILY [facility] Folic Acid (Folic Acid 1 Mg Tab) 0.4 mg PO DAILY [facility] Furosemide (Furosemide 40 Mg Tab) 40 mg PO DAILY [facility] Sodium Chloride (Normal Saline) 1,000 mls @ 100 mls/hr IV ASDIRECTED [facility] Last Admin: 03/10/21 00:26 Dose: 100 mls/hr Documented by: Metoprolol Tartrate (Metoprolol Tartrate 50 Mg Tab) 50 mg PO DAILY [facility] Omeprazole (Omeprazole 20 Mg Cap.Cr) 20 mg PO BID [facility] Last Admin: 03/09/21 20:13 Dose: 20 mg Documented by: Ondansetron HCl (Ondansetron 4 Mg Tab.Dis) 4 mg PO Q4H PRN PRN Reason: nausea, able to take PO Ondansetron HCl (Ondansetron 4 Mg/2 Ml Sdv) 4 mg IV Q4H PRN PRN Reason: Nausea/Vomiting Tamsulosin HCl (Tamsulosin 0.4 Mg Cap.Er) 0.4 mg PO BID [facility] Last Admin: 03/09/21 20:14 Dose: 0.4 mg Documented by: Temazepam (Temazepam 7.5 Mg Cap) 7.5 mg PO BEDTIME PRN PRN Reason: Sleep Thiamine HCl (Thiamine 100 Mg Tab) 100 mg PO DAILY [facility] Vancomycin HCl (Vancomycin 250 Mg Cap) 250 mg PO 0700,1200,1600,2200 [facility] Discontinued Medications Al Hydroxide/Mg Hydroxide (Aluminum Hydroxide/Magnesium Hydroxide/Simethicone Susp 30 Ml Cup) 30 ml PO ONETIME ONE Stop: 03/09/21 22:16 Last Admin: 03/09/21 22:32 Dose: 30 ml Documented by: Cholestyramine Resin (Cholestyramine/Sucrose Powder 4 Gm Packet) 4 gm PO BID [facility] Last Admin: 03/09/21 20:14 Dose: 4 gm Documented by: Hydromorphone HCl (Hydromorphone 0.5 Mg/0.5 Ml Syringe) 0.5 mg IVPUSH ONETIME ONE Stop: 03/09/21 07:15 Last Admin: 03/09/21 07:30 Dose: 0.5 mg Documented by: Dextrose/Sodium Chloride (Dextrose 5%-Normal Saline) 1,000 mls @ 250 mls/hr IV ASDIRECTED [facility] Last Admin: 03/09/21 07:29 Dose: 250 mls/hr Documented by: Magnesium Sulfate 4 gm/ Premix 50 mls @ 12.5 mls/hr IV ONETIME ONE Stop: 03/09/21 13:48 Last Admin: 03/09/21 09:58 Dose: 12.5 mls/hr Documented by: Potassium Chloride 10 meq/ (Premix) 100 mls @ 100 mls/hr IV Q1H [facility] Stop: 03/09/21 12:59 Last Admin: 03/09/21 12:53 Dose: 100 mls/hr Documented by: Metronidazole 500 mg/ Premix 100 mls @ 100 mls/hr IV ONETIME ONE Stop: 03/09/21 11:47 Last Admin: 03/09/21 11:04 Dose: 100 mls/hr Documented by: Magnesium Sulfate 2 gm/ Premix 50 mls @ 25 mls/hr IV ONETIME ONE Stop: 03/09/21 13:48 Last Admin: 03/09/21 12:36 Dose: Not Given Documented by: Magnesium Sulfate 2 gm/ Premix 50 mls @ 25 mls/hr IV ONETIME ONE Stop: 03/09/21 13:59 Last Admin: 03/09/21 12:55 Dose: 25 mls/hr Documented by: Metoclopramide HCl (Metoclopramide 10 Mg/2 Ml Sdv) 5 mg IVPUSH ONETIME ONE Stop: 03/09/21 07:15 Last Admin: 03/09/21 07:30 Dose: 5 mg Documented by: Potassium Chloride (Potassium Chloride 20 Meq Tab.Er) 20 meq PO ONETIME ONE Stop: 03/10/21 07:01 Vancomycin HCl (Vancomycin 250 Mg Cap) 250 mg PO QID [facility] Last Admin: 03/09/21 20:14 Dose: 250 mg Documented by: - Exam Quality Assessment: Denies: Supplemental Oxygen, DVT Prophylaxis General: Reports: Alert, Oriented, Cooperative, No Acute Distress HEENT: Reports: Pupils Equal, Pupils Reactive, EOMI, Mucous Membr. Moist/[place] Neck: Reports: Supple, Trachea Midline Lungs: Reports: Clear to Auscultation, Normal Respiratory Effort Cardiovascular: Reports: Regular Rate, Regular Rhythm GI/Abdominal Exam: Normal Bowel Sounds, Soft, Non-Tender, No Distention (Male) Exam: Deferred Rectal (Males) Exam: Deferred Back Exam: Reports: Normal Inspection, Full Range of Motion Extremities: Normal Inspection, No Pedal Edema Skin: Reports: Warm, Dry, Intact Neurological: Reports: No New Focal Deficit Psy/Mental Status: Reports: Alert, Normal Affect *Q Meaningful Use (DIS) - VTE *Q VTE Pharmacological Contraindications *Q: Not Candidate LT Anticoag
[2021-03-10] MEDS ORDERED: Metoprolol Tartrate 50 MG Tab PO SCH (09:00)
[2021-03-10] MEDS ORDERED: Aspirin 81 MG Tab.EC PO SCH (09:00)
[2021-03-10] MEDS ORDERED: Calcium Carbonate/Vitamin D3 600 MG-200 Units Tab PO SCH (09:00)
[2021-03-10] MEDS ORDERED: Folic Acid 1 MG Tab PO SCH (09:00)
[2021-03-10] MEDS ORDERED: Furosemide 40 MG Tab PO SCH (09:00)
[2021-03-10] MEDS ORDERED: Thiamine 100 MG Tab PO SCH (09:00)
[2021-03-10] MEDS ORDERED: Ferrous Sulfate 324 MG Tab.EC PO SCH (09:00)
[2021-03-10] MEDS: Tamsulosin 0.4 MG Cap.ER PO SCH (09:02)
[2021-03-10] MEDS: Omeprazole 20 MG Cap.CR PO SCH (09:03)
[2021-03-10 09:15] VITALS: BP 127/67
== END 2021-03-10 12:35 | disposition home or self-care (01) ==
LOC: JD.ED 06:40 → JD.MS 10:36
PROVIDERS: ADMIT Internal Medicine; ATTEND Internal Medicine
DX: A04.72 Enterocolitis due to Clostridium difficile, not specified as recurrent (principal); I25.10 Atherosclerotic heart disease of native coronary artery without angina pectoris; I50.9 Heart failure, unspecified; E78.00 Pure hypercholesterolemia, unspecified; I13.0 Hypertensive heart and chronic kidney disease with heart failure and stage 1 through stage 4 chronic kidney disease, or unspecified chronic kidney disease; E83.42 Hypomagnesemia; E86.0 Dehydration; Z20.822 Contact with and (suspected) exposure to COVID-19; Z98.1 Arthrodesis status; Z98.890 Other specified postprocedural states; Z87.891 Personal history of nicotine dependence; Z88.8 Allergy status to other drugs, medicaments and biological substances; Z79.899 Other long term (current) drug therapy; Z79.82 Long term (current) use of aspirin
CPT/HCPCS: 36415; 74176; 80053; 81001; 83630; 83690; 83735; 83880; 85025; 85610; 85730; 86140; 87324; 87493; 93005; 96365; 96366; 96367; 96368; 96375; 97161; 99285; A9270; G0378; J1170; J2765; J3475; J3480; J3490; J7030; J7042; U0002

== ENCOUNTER 2021-10-14 12:49 | Inpatient (IN) | payer MEDICARE, OTHER ==
[2021-10-14] MEDS ORDERED: Sodium Chloride 0.9% 10 ML Syringe FLUSH PRN (13:20)
[2021-10-14] MEDS ORDERED: Albuterol/Ipratropium 3.0-0.5 MG/3 ML Neb Soln NEB ONE (13:45)
[2021-10-14] MEDS ORDERED: Dexamethasone 4 MG/ML SDV IVPUSH ONE (14:11)
[2021-10-14] MEDS ORDERED: Sodium Chloride 0.9% 10 ML SDV FLUSH ONE (14:55)
[2021-10-14] MEDS ORDERED: Iopamidol 755 Mg/ML 100 ML Bottle IVPUSH ONE (14:55)
[2021-10-14] MEDS ORDERED: Sodium Chloride 0.9% 100 ML IV SCH (15:00)
[2021-10-14] MEDS ORDERED: Dexamethasone 6 MG TABLET ONE (15:02)
[2021-10-14] MEDS ORDERED: Dexamethasone 4 MG/ML SDV ONE (15:04)
[2021-10-14] MEDS ORDERED: Acetaminophen 325 MG Tab PO PRN (19:12)
[2021-10-14] MEDS ORDERED: Ibuprofen 200 MG Tab PO PRN (19:18)
[2021-10-14] MEDS: Tamsulosin 0.4 MG Cap.ER PO SCH (20:12)
[2021-10-14] MEDS ORDERED: Azithromycin 500 MG in Sodium Chloride 0.9% 250 ML IV ONE (20:30)
[2021-10-14] MEDS: Albuterol/Ipratropium 3.0-0.5 MG/3 ML Neb Soln NEB SCH (20:37)
[2021-10-14] MEDS: cefTRIAXone 2 GM in Sodium Chloride 0.9% 100 ML IV SCH (23:16)
[2021-10-15] MEDS: Albuterol/Ipratropium 3.0-0.5 MG/3 ML Neb Soln NEB SCH ×4 (03:30→20:13)
[2021-10-15] MEDS ORDERED: Lactated Ringers 500 ML IV ONE (06:01)
[2021-10-15] MEDS ORDERED: Metoprolol Tartrate 25 MG Tab PO SCH (09:00)
[2021-10-15] MEDS ORDERED: Docusate Sodium 100 MG Cap PO ONE (09:00)
[2021-10-15] MEDS ORDERED: Dexamethasone 6 MG TABLET PO SCH (09:00)
[2021-10-15] MEDS ORDERED: Dexamethasone 10 MG/ML SDV IVPUSH SCH (09:00)
[2021-10-15] MEDS: Aspirin 81 MG Tab.EC PO SCH (10:07)
[2021-10-15] MEDS: Folic Acid 1 MG Tab PO SCH (10:08)
[2021-10-15] MEDS: Ferrous Sulfate 324 MG Tab.EC PO SCH (10:08)
[2021-10-15] MEDS: Tamsulosin 0.4 MG Cap.ER PO SCH ×2 (10:08→20:08)
[2021-10-15] MEDS: Thiamine 100 MG Tab PO SCH (10:08)
[2021-10-15] MEDS: Zinc Sulfate 220 MG Cap PO SCH (10:08)
[2021-10-15] MEDS: Multivitamin Tab PO SCH (10:09)
[2021-10-15] MEDS: Metoprolol Succinate 25 MG Tab.ER PO SCH (10:09)
[2021-10-15] MEDS: Furosemide 40 MG Tab PO SCH (10:09)
[2021-10-15] MEDS ORDERED: Albuterol 0.083% 2.5 MG/3 ML Neb Soln NEB PRN (12:58)
[2021-10-15] MEDS: methylPREDNISolone Sodium Succinate 40 MG/1 ML SDV IVPUSH SCH ×2 (13:56→23:55)
[2021-10-15] MEDS: cefTRIAXone 2 GM in Sodium Chloride 0.9% 100 ML IV SCH (20:07)
[2021-10-15] MEDS: Benzocaine/Cetylpyridinium/Menthol Lozenge MUCMEM PRN ×2 (21:17→23:55)
[2021-10-15] MEDS: Azithromycin 250 MG Tab PO SCH (22:59)
[2021-10-16] MEDS: methylPREDNISolone Sodium Succinate 40 MG/1 ML SDV IVPUSH SCH ×2 (01:15→14:21)
[2021-10-16] MEDS: Albuterol/Ipratropium 3.0-0.5 MG/3 ML Neb Soln NEB SCH ×4 (03:10→20:22)
[2021-10-16] MEDS: Furosemide 40 MG Tab PO SCH (09:26)
[2021-10-16] MEDS: Aspirin 81 MG Tab.EC PO SCH (09:26)
[2021-10-16] MEDS: Thiamine 100 MG Tab PO SCH (09:26)
[2021-10-16] MEDS: Zinc Sulfate 220 MG Cap PO SCH (09:26)
[2021-10-16] MEDS: Azithromycin 250 MG Tab PO SCH (09:26)
[2021-10-16] MEDS: Folic Acid 1 MG Tab PO SCH (09:26)
[2021-10-16] MEDS: Ferrous Sulfate 324 MG Tab.EC PO SCH (09:26)
[2021-10-16] MEDS: Multivitamin Tab PO SCH (09:26)
[2021-10-16] MEDS: Metoprolol Succinate 25 MG Tab.ER PO SCH (09:27)
[2021-10-16] MEDS: Tamsulosin 0.4 MG Cap.ER PO SCH ×2 (09:27→19:52)
[2021-10-16] MEDS: Benzocaine/Cetylpyridinium/Menthol Lozenge MUCMEM PRN (19:52)
[2021-10-16] MEDS: cefTRIAXone 2 GM in Sodium Chloride 0.9% 100 ML IV SCH (19:53)
[2021-10-17] MEDS: methylPREDNISolone Sodium Succinate 40 MG/1 ML SDV IVPUSH SCH (00:25)
[2021-10-17] MEDS: Tamsulosin 0.4 MG Cap.ER PO SCH ×3 (00:26→20:05)
[2021-10-17] MEDS: Albuterol/Ipratropium 3.0-0.5 MG/3 ML Neb Soln NEB SCH ×4 (02:24→20:15)
[2021-10-17] MEDS: Zinc Sulfate 220 MG Cap PO SCH (08:46)
[2021-10-17] MEDS: Furosemide 40 MG Tab PO SCH (08:46)
[2021-10-17] MEDS: Thiamine 100 MG Tab PO SCH (08:46)
[2021-10-17] MEDS: Aspirin 81 MG Tab.EC PO SCH (08:46)
[2021-10-17] MEDS: Azithromycin 250 MG Tab PO SCH (08:46)
[2021-10-17] MEDS: Metoprolol Succinate 25 MG Tab.ER PO SCH (08:47)
[2021-10-17] MEDS: Folic Acid 1 MG Tab PO SCH (08:48)
[2021-10-17] MEDS: Ferrous Sulfate 324 MG Tab.EC PO SCH (08:48)
[2021-10-17] MEDS: Multivitamin Tab PO SCH (08:48)
[2021-10-17] MEDS: cefTRIAXone 2 GM in Sodium Chloride 0.9% 100 ML IV SCH (20:04)
[2021-10-17] MEDS: Benzocaine/Cetylpyridinium/Menthol Lozenge MUCMEM PRN (20:05)
[2021-10-18] MEDS: Albuterol/Ipratropium 3.0-0.5 MG/3 ML Neb Soln NEB SCH ×3 (03:20→14:40)
[2021-10-18] MEDS: Thiamine 100 MG Tab PO SCH (09:41)
[2021-10-18] MEDS: Tamsulosin 0.4 MG Cap.ER PO SCH (09:41)
[2021-10-18] MEDS: Zinc Sulfate 220 MG Cap PO SCH (09:41)
[2021-10-18] MEDS: Aspirin 81 MG Tab.EC PO SCH (09:41)
[2021-10-18] MEDS: Ferrous Sulfate 324 MG Tab.EC PO SCH (09:42)
[2021-10-18] MEDS: Azithromycin 250 MG Tab PO SCH (09:42)
[2021-10-18] MEDS: Multivitamin Tab PO SCH (09:46)
[2021-10-18] MEDS: Furosemide 40 MG Tab PO SCH (09:46)
[2021-10-18] MEDS: Metoprolol Succinate 25 MG Tab.ER PO SCH (09:46)
[2021-10-18] MEDS: Folic Acid 1 MG Tab PO SCH (09:46)
[2021-10-18 12:30] VITALS: BP 101/68; PULSE 70
[2021-10-18] MEDS ORDERED: Loperamide 2 MG Cap PO ONE (14:00)
== END 2021-10-18 16:25 | disposition home or self-care (01) | DRG 177 ==
LOC: JD.ED 12:49 → JD.MS 18:26
PROVIDERS: ADMIT Pediatrics; ATTEND Pediatrics
PROC: 8E0ZXY6 Isolation (ICD-10-PCS; principal; 2021-10-14)
PROC: 3E0333Z Introduction of Anti-inflammatory into Peripheral Vein, Percutaneous Approach (ICD-10-PCS; 2021-10-14)
PROC: 3E0DX3Z Introduction of Anti-inflammatory into Mouth and Pharynx, External Approach (ICD-10-PCS; 2021-10-15)
DX: U07.1 COVID-19 (principal); J12.82 Pneumonia due to coronavirus disease 2019; R09.02 Hypoxemia; R06.02 Shortness of breath; J96.01 Acute respiratory failure with hypoxia; I13.0 Hypertensive heart and chronic kidney disease with heart failure and stage 1 through stage 4 chronic kidney disease, or unspecified chronic kidney disease; J43.9 Emphysema, unspecified; N18.9 Chronic kidney disease, unspecified; H54.7 Unspecified visual loss; E78.00 Pure hypercholesterolemia, unspecified; I50.9 Heart failure, unspecified; N40.1 Benign prostatic hyperplasia with lower urinary tract symptoms; R33.9 Retention of urine, unspecified; G89.29 Other chronic pain; R33.8 Other retention of urine; I25.10 Atherosclerotic heart disease of native coronary artery without angina pectoris; K21.9 Gastro-esophageal reflux disease without esophagitis; M54.9 Dorsalgia, unspecified; M10.9 Gout, unspecified; F10.21 Alcohol dependence, in remission; M19.90 Unspecified osteoarthritis, unspecified site; Z85.46 Personal history of malignant neoplasm of prostate; F41.9 Anxiety disorder, unspecified; D64.9 Anemia, unspecified; G25.81 Restless legs syndrome; Z79.899 Other long term (current) drug therapy; Z96.651 Presence of right artificial knee joint; Z96.642 Presence of left artificial hip joint; C61 Malignant neoplasm of prostate; D69.6 Thrombocytopenia, unspecified; D50.9 Iron deficiency anemia, unspecified; K74.60 Unspecified cirrhosis of liver; N18.30 Chronic kidney disease, stage 3 unspecified; I87.2 Venous insufficiency (chronic) (peripheral); Z88.8 Allergy status to other drugs, medicaments and biological substances; Z87.891 Personal history of nicotine dependence; Z79.82 Long term (current) use of aspirin
CPT/HCPCS: 36415; 36600; 71046; 71046-26; 71275; 71275-26; 76770; 76770-26; 80048; 80053; 81001; 82728; 82803; 83540; 83605; 83735; 83880; 84145; 84484; 85025; 85379; 86140; 87040; 87070; 87205; 87502-QW; 87634-QW; 93005; 93010; 93970; 93970-26; 94640; 94667; 94668; 94762; 96374; 97110-GP; 97116-GP; 97161-GP; 99285; 99285-25; A9270-GY; J0456; J0696; J1100; J2920; J7050; J7120; J7509; J7620-GY; J8540; Q9967

== ENCOUNTER 2022-03-17 11:33 | Emergency (ER) | payer MEDICARE, OTHER ==
[2022-03-17] MEDS ORDERED: Sodium Chloride 0.9% 1,000 ML IV SCH (12:45)
[2022-03-17] MEDS ORDERED: Sodium Chloride 0.9% 10 ML Syringe FLUSH PRN (14:01)
[2022-03-17] MEDS ORDERED: Iopamidol 612 MG/ML 100 ML Bottle IVPUSH ONE (14:01)
[2022-03-17] MEDS ORDERED: Magnesium Sulfate/Water 2 GM in Premix Bag 1 BAG IV ONE (14:06)
[2022-03-17 16:34] VITALS: BP 112/63; PULSE 63
== END 2022-03-17 16:20 ==
LOC: JD.ED 11:33
DX: K74.60 Unspecified cirrhosis of liver (principal); K83.1 Obstruction of bile duct; E83.42 Hypomagnesemia; N28.9 Disorder of kidney and ureter, unspecified; I48.91 Unspecified atrial fibrillation; K21.9 Gastro-esophageal reflux disease without esophagitis; E78.00 Pure hypercholesterolemia, unspecified; I10 Essential (primary) hypertension; E66.9 Obesity, unspecified; Z86.16 Personal history of COVID-19; Z28.310 Unvaccinated for COVID-19; Z88.8 Allergy status to other drugs, medicaments and biological substances; Z79.899 Other long term (current) drug therapy; Z87.891 Personal history of nicotine dependence; Z20.822 Contact with and (suspected) exposure to COVID-19; Z68.34 Body mass index [BMI] 34.0-34.9, adult
CPT/HCPCS: 36415; 74177; 74177-26; 80053; 82248; 82977; 83690; 83735; 85007; 85027; 85610; 85730; 96365; 96366; 99285-25; J3475; J3490; J7030; Q9967; U0002

== ENCOUNTER 2022-03-30 19:08 | Inpatient (IN) | payer MEDICARE, BC ==
[2022-03-30] MEDS ORDERED: Albumin 25% 12.5 GM/50 ML BAG IV ONE (22:37)
[2022-03-30] MEDS ORDERED: Albumin 25% 12.5 GM in Premix Bag 1 BAG IV SCH (23:00)
[2022-03-30] MEDS ORDERED: Albumin 25% 50 ML ONE (23:14)
[2022-03-31] MEDS ORDERED: Ondansetron 4 MG/2 ML SDV IV PRN (06:18)
[2022-03-31] MEDS ORDERED: Acetaminophen 325 MG Tab PO PRN (06:18)
[2022-03-31] MEDS ORDERED: Albumin 25% 50 GM in Premix Bag 1 BAG IV SCH (06:27)
[2022-03-31] MEDS: Midodrine 5 MG Tab PO SCH ×3 (07:00→17:40)
[2022-03-31] MEDS: ALBUMIN IV SCH ×3 (07:01→23:01)
[2022-04-01] MEDS: Midodrine 5 MG Tab PO SCH ×3 (06:16→18:18)
[2022-04-01] MEDS: ALBUMIN IV SCH (06:31)
[2022-04-01] MEDS ORDERED: Furosemide 40 MG/4 ML VIAL IVPUSH ONE (08:30)
[2022-04-01] MEDS ORDERED: Lactulose Soln 10 GM/15 ML 30 ML UD Cup PO SCH (09:00)
[2022-04-01 15:38] VITALS: BP 121/55; PULSE 61
== END 2022-04-01 20:04 | DRG 432 ==
LOC: JD.ED 19:08 → JD.ICU 23:11
PROVIDERS: ADMIT Internal Medicine; ATTEND Internal Medicine
DX: K70.10 Alcoholic hepatitis without ascites (principal); N18.9 Chronic kidney disease, unspecified; K76.7 Hepatorenal syndrome; N17.9 Acute kidney failure, unspecified; F10.20 Alcohol dependence, uncomplicated; N40.0 Benign prostatic hyperplasia without lower urinary tract symptoms; M19.90 Unspecified osteoarthritis, unspecified site; M10.9 Gout, unspecified; K70.30 Alcoholic cirrhosis of liver without ascites; I48.91 Unspecified atrial fibrillation; E66.9 Obesity, unspecified; Z88.8 Allergy status to other drugs, medicaments and biological substances; E78.5 Hyperlipidemia, unspecified; I12.9 Hypertensive chronic kidney disease with stage 1 through stage 4 chronic kidney disease, or unspecified chronic kidney disease; N18.32 Chronic kidney disease, stage 3b; D69.6 Thrombocytopenia, unspecified; N40.1 Benign prostatic hyperplasia with lower urinary tract symptoms; R35.0 Frequency of micturition; J43.9 Emphysema, unspecified; K21.9 Gastro-esophageal reflux disease without esophagitis; G25.81 Restless legs syndrome; F41.9 Anxiety disorder, unspecified; D63.1 Anemia in chronic kidney disease; I25.10 Atherosclerotic heart disease of native coronary artery without angina pectoris; Z96.651 Presence of right artificial knee joint; Z96.642 Presence of left artificial hip joint; E87.5 Hyperkalemia; Z79.899 Other long term (current) drug therapy; Z68.35 Body mass index [BMI] 35.0-35.9, adult; Z79.52 Long term (current) use of systemic steroids; Z79.01 Long term (current) use of anticoagulants; Z85.46 Personal history of malignant neoplasm of prostate; Z79.82 Long term (current) use of aspirin; Z86.16 Personal history of COVID-19; Z98.42 Cataract extraction status, left eye; Z98.41 Cataract extraction status, right eye; Z87.891 Personal history of nicotine dependence; Z90.89 Acquired absence of other organs; Z98.890 Other specified postprocedural states
CPT/HCPCS: 36415; 80048; 80053; 81001; 82140; 82570; 82947; 84156; 85027; 85610; 97116-GP; 97162-GP; 97166-GO; 99284; A9270-GY; J1940; P9047